=== PATIENT | male | born 1940 | race Caucasian/White ===

== ENCOUNTER → 2019-01-24 | Outpatient (CLI) | payer MEDICARE, OTHER ==
--- NOTE | 2019-01-24 14:31 | Diagnostic Imaging Report ---
PROCEDURE: CT head without contrast. TECHNIQUE: Multiple contiguous axial images were obtained through the brain without the use of intravenous contrast. Auto Exposure Controls were utilized during the CT exam to meet ALARA standards for radiation dose reduction. INDICATION: Right hand tremors. COMPARISON: No prior CT head studies are available for comparison. FINDINGS: The ventricles and sulci are within normal limits. No sulcal effacement or midline shift is seen. No acute intra-axial or extra-axial hemorrhage is detected. Cisterns are patent. Visualized paranasal sinuses are clear. IMPRESSION: No acute intracranial process is detected. Dictated by: Dictated on workstation # [id number]
== END ==
LOC: RAD 12:55
PROVIDERS: ATTEND Nurse Practitioner Family
DX: R25.1 Tremor, unspecified (principal)
CPT/HCPCS: 70450

== ENCOUNTER 2020-02-29 16:37 | Observation (INO) | payer MEDICARE, OTHER ==
[~2020-02-29] VITALS: Ht 177.8 cm; Wt 82.0 kg
--- OUTSIDE RECORDS SUMMARY | 2020-02-29 16:47 | XMS REPORT | CCD ---
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 Name Role Phone PP Unavailable CCM Unavailable Summary Purpose Interface Exchange Insurance Providers Payer name Policy type / Coverage type Covered libertarian ID Effective Begin Date Effective End Date WPS Medicare Part B Commercial Insurance [id number] Unknown FOR LIFE WPS Commercial Insurance [id number] Unknown Family history Mother Diagnosis Age At Onset Cancer Unknown Father Diagnosis Age At Onset Cancer Unknown Brother Diagnosis Age At Onset Cancer Unknown Social History Social History Element Codes Description Effective Dates Marital status Unknown M arried carson 04/21/2018 Number of children Unknown 4 04/21/2018 Employment Unknown 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 04/21/[address]: 115162 Currently drinks alcohol 04/21/2018 Allergies, Adverse Reactions, Alerts Substance Reaction Codes Entered Date Inactivated Date Status SULFA(SULFONAMIDE AN TIBIOTICS) Unknown 04/21/2018 No Inactive Date Active Past Medical History Illness Codes Condition Status Onset Date Resolved Date Low back pain ICD-9: 724.2 ICD-10: M54.5 Active 04/03/2019 Unknown Mixed hyperlipidemia ICD-9: 272.2 ICD-10: E78.2 Active 04/21/2018 Unknown Essential (primary) hypertension ICD-9: 401.1 ICD-10: I10 Active 04/21/2018 Unknown Other abnormal invol untary movements ICD-9: 781.0 ICD-10: R25.8 Active 01/01/2019 Unknown Other specified form s of tremor ICD-9: 781.0 ICD-10: G25.2 Active 01/01/2019 Unknown Other hypotension ICD-9: 458.8 ICD-10: I95.89 Active 04/21/2018 Unknown Problems Condition Codes Effectiv e Dates Condition Status Low back pain ICD-9: 724.2 ICD-10: M54.5 04/03/2019 Active Mixed hyperlipidemia ICD-9: 272.2 ICD-10: E78.2 04/21/2018 Active Essential (primary) hypertension ICD-9: 401.1 ICD-10: I10 04/21/2018 Active Other abnormal invol untary movements ICD-9: 781.0 ICD-10: R25.8 01/01/2019 Active Other specified form s of tremor ICD-9: 781.0 ICD-10: G25.2 01/01/2019 Active Other hypotension ICD-9: 458.8 ICD-10: I95.89 04/21/2018 Active Medications Medication Codes Instruc tions Start Date Stop Date Sta tus Fill Instructions Lipitor 20 mg tablet RxNorm: 083610 1 Tablet(s) PO daily 04/03/2019 03/27/2020 Active Zyrtec 10 mg tablet RxNorm: 9274192 1 Tablet(s) PO daily 01/01/2019 09/27/2019 Active aspirin 81 mg tablet RxNorm: 030660 1 Tablet(s) PO daily No Start Date Active Co Q-10 100 mg capsule RxNorm: 392997 1 Capsule(s) PO daily No Start Date Active Lipitor 10 mg tablet RxNorm: 962353 1/2 Tablet(s) PO daily No Start Date 03/20/2019 Inactive Toprol XL 25 mg tabl et,extended release RxNorm: 636295 1 Tablet(s) PO daily No Start Date 12/31/2018 Inactive Medication Administered No Medication Administered data Immunizations No Immunization data Assessments Condition Codes Effectiv e Dates Mixed hyperlipidemia ICD-10: E78.2 ICD-9: 272.2 04/03/2019 Low back pain ICD-10: M54.5 ICD-9: 724.2 04/03/2019 Other specified forms of tremor ICD- 10: G25.2 ICD-9: 781.0 01/22/2019 Essential (primary) hypertension ICD -10: I10 ICD-9: 401.1 01/22/2019 Other abnormal involuntary movements ICD-10: R25.8 ICD-9: 781.0 01/01/2019 Other hypotension ICD-10: I95.89 ICD-9: 458.8 04/21/2018 Reason For Visit Reason For Visit Effective Dates Notes back pain 04/03/2019 dyskinesia or tremor 01/22/2019 dyskinesia or tremor 01/01/2019 hypertension 04/21/2018 Results Observation Observation Code Item Item Code Result Date Cbc With Differential Ord2 WBC 9.20 K/ul 01/01/2019 Cbc With Differential Ord2 RBC 4.68 M/ul 01/01/2019 Cbc With Differential Ord2 HGB 14.8 g/dl 01/01/2019 Cbc With Differential Ord2 HCT 45.0 % 01/01/2019 Cbc With Differential Ord2 Neut% 68.7 % 01/01/2019 Cbc With Differential Ord2 MCV 96.2 fl 01/01/2019 Cbc With Differential Ord2 Lymph% 16.8 % 01/01/2019 Cbc With Differential Ord2 MCH 31.6 pg 01/01/2019 Cbc With Differential Ord2 [place]% 10.9 % 01/01/2019 Cbc With Differential Ord2 MCHC 32.9 pg 01/01/2019 Cbc With Differential Ord2 Eos% 3.3 % 01/01/2019 Cbc With Differential Ord2 PLT 221 K/ul 01/01/2019 Cbc With Differential Ord2 Baso% 0.3 % 01/01/2019 Cbc With Differential Ord2 RDW 14.0 % 01/01/2019 Cbc With Differential Ord2 Neut ABS# 6.32 K/ul 01/01/2019 Cbc With Differential Ord2 Lymph ABS# 1.55 K/ul 01/01/2019 Cbc With Differential Ord2 [place] ABS# 1.0 K/ul 01/01/2019 Cbc With Differential Ord2 Eos ABS# 0.3 K/ul 01/01/2019 Cbc With Differential Ord2 Baso ABS# 0.0 K/ul 01/01/2019 Comp Metabolic Pox492 NA 144 mEq/L 01/01/2019 Comp Metabolic Ivc432 K 4.6 mEq/L 01/01/2019 Comp Metabolic Gzn221 CL 103 mEq/L 01/01/2019 Comp Metabolic Gqk702 CO2 36.0 mEq/L 01/01/2019 Comp Metabolic Drv475 AN ION GAP 10 01/01/2019 Comp Metabolic Uyb970 GL UCOSE 83 mg/dL 01/01/2019 Comp Metabolic Dvv782 Cr eat 1.1 mg/dL 01/01/2019 Comp Metabolic Uxl826 eG FR 71 ml/min/1.73m2 01/01 Comp Metabolic Gwp020 BUN 25 mg/dL 01/01/2019 Comp Metabolic Ddw277 B/ C Ratio 23.4 Ratio 01/01/2019 Comp Metabolic Uhh242 CA LCIUM 9.2 mg/dL 01/01/2019 Comp Metabolic Iff697 AL K PHOS 54 U/L 01/01/2019 Comp Metabolic Uou099 T(SGOT) 18 U/L 01/01/2019 Comp Metabolic Rws766 AL T(SGPT) 16 U/L 01/01/2019 Comp Metabolic Adp714 BI LI T 0.5 mg/dL 01/01/2019 Comp Metabolic Bau929 AL BUMIN 3.9 g/dL 01/01/2019 Comp Metabolic Ozf437 TP RO 5.7 g/dL 01/01/2019 Comp Metabolic Mji060 GL OB 1.8 g/dL 01/01/2019 Comp Metabolic Zjn704 A/ G Ratio 2.1 Ratio 01/01/2019 Comp Metabolic Sho422 Os mo 290 mOsmo 01/01/2019 Phosphorus Ord71 PHOS 4.1 mg/dL 01/01/2019 Tsh Ord6 TSH (3rd IS) 0.81 uIU/mL 01/01/2019 Magnesium Ord90 Mag 2.2 mg/dL 01/01/2019 Lipid Ord30 CHOL 131 mg/dL 04/21/2018 Lipid Ord30 HDL 52.0 mg/dl 04/21/2018 Lipid Ord30 TRIG 68 mg/dL 04/21/2018 Lipid Ord30 LDL 65 mg/dL 04/21/2018 Lipid Ord30 C/HDL 2.5 Ratio 04/21/2018 Comp Metabolic Ylv421 NA 140 mEq/L 04/21/2018 Comp Metabolic Tzu211 K 4.6 mEq/L 04/21/2018 Comp Metabolic Fzs033 CL 103 mEq/L 04/21/2018 Comp Metabolic Xqn789 CO2 32.0 mEq/L 04/21/2018 Comp Metabolic Mtd030 AN ION GAP 10 04/21/2018 Comp Metabolic Lgz371 GL UCOSE 92 mg/dL 04/21/2018 Comp Metabolic Cnw901 Cr eat 1.0 mg/dL 04/21/2018 Comp Metabolic Zzr598 eG FR 77 ml/min/1.73m2 04/21 Comp Metabolic Vii310 BUN 21 mg/dL 04/21/2018 Comp Metabolic Tyu532 B/ C Ratio 21.0 Ratio 04/21/2018 Comp Metabolic Svk775 CA LCIUM 9.1 mg/dL 04/21/2018 Comp Metabolic Sfg049 AL K PHOS 48 U/L 04/21/2018 Comp Metabolic Gmz388 T(SGOT) 22 U/L 04/21/2018 Comp Metabolic Vug573 AL T(SGPT) 17 U/L 04/21/2018 Comp Metabolic Pqg777 BI LI T 1.1 mg/dL 04/21/2018 Comp Metabolic Myo451 AL BUMIN 4.1 g/dL 04/21/2018 Comp Metabolic Vzy745 TP RO 5.9 g/dL 04/21/2018 Comp Metabolic Xfy595 GL OB 1.8 g/dL 04/21/2018 Comp Metabolic Bgv914 A/ G Ratio 2.3 Ratio 04/21/2018 Comp Metabolic Usy999 Os mo 282 mOsmo 04/21/2018 Total Psa Ord10 PSA 1.74 ng/mL 04/21/2018 Cbc With Differential Ord2 WBC 6.67 K/ul 04/21/2018 Cbc With Differential Ord2 RBC 4.47 M/ul 04/21/2018 Cbc With Differential Ord2 HGB 14.1 g/dl 04/21/2018 Cbc With Differential Ord2 HCT 42.4 % 04/21/2018 Cbc With Differential Ord2 Neut% 63.2 % 04/21/2018 Cbc With Differential Ord2 MCV 94.9 fl 04/21/2018 Cbc With Differential Ord2 Lymph% 21.3 % 04/21/2018 Cbc With Differential Ord2 MCH 31.5 pg 04/21/2018 Cbc With Differential Ord2 [place]% 11.4 % 04/21/2018 Cbc With Differential Ord2 MCHC 33.3 pg 04/21/2018 Cbc With Differential Ord2 Eos% 3.7 % 04/21/2018 Cbc With Differential Ord2 PLT 210 K/ul 04/21/2018 Cbc With Differential Ord2 Baso% 0.4 % 04/21/2018 Cbc With Differential Ord2 RDW 13.5 % 04/21/2018 Cbc With Differential Ord2 Neut ABS# 4.21 K/ul 04/21/2018 Cbc With Differential Ord2 Lymph ABS# 1.42 K/ul 04/21/2018 Cbc With Differential Ord2 [place] ABS# 0.8 K/ul 04/21/2018 Cbc With Differential Ord2 Eos ABS# 0.3 K/ul 04/21/2018 Cbc With Differential Ord2 Baso ABS# 0.0 K/ul 04/21/2018 Tsh Ord6 TSH (3rd IS) 0.67 uIU/mL 04/21/2018 Review of Systems System Result Effective Dates Constitutional No recent illness 04/03/2019 Constitutional No chills 04/03/2019 Constitutional No fever 04/03/2019 Eyes No eye erythema Ears/Nose/Throat/Neck No nasal discharge 04/03/2019 Cardiovascular No chest pain/pressure 04/03/2019 Cardiovascular No dyspnea 04/03/2019 Respiratory No cough Respiratory No dyspnea 0 04/03/2019 Neurologic No alteration of consciousness 04/03/2019 Neurologic No mental status change 04/03/2019 Musculoskeletal back pain 04/03/2019 Constitutional No recent illness 01/22/2019 Constitutional No anorexia 01/22/2019 Constitutional No night sweats 01/22/2019 Constitutional No chills 01/22/2019 Constitutional No diaphoresis 01/22/2019 Constitutional No fatigue 01/22/2019 Constitutional No fever 01/22/2019 Constitutional No insomnia 01/22/2019 Constitutional No malaise 01/22/2019 Constitutional No weight loss 01/22/2019 Constitutional No weight gain 01/22/2019 Eyes No eye discharge Eyes No eye erythema Eyes eye tearing 019 Ears/Nose/Throat/Neck No dizziness 01/22/2019 Ears/Nose/Throat/Neck No headache 01/22/2019 Ears/Nose/Throat/Neck nasal allergies 01/22/2019 Cardiovascular No chest pain/pressure 01/22/2019 Cardiovascular No dyspnea 01/22/2019 Cardiovascular No edema 01/22/2019 Respiratory No productive sputum 01/22/2019 Respiratory No cough Gastrointestinal No abdominal pain 01/22/2019 Gastrointestinal No constipation 01/22/2019 Gastrointestinal No diarrhea 01/22/2019 Genitourinary/Nephrology No dysuria 01/22/2019 Musculoskeletal back pain 01/22/2019 Musculoskeletal No neck pain 01/22/2019 Dermatologic No rash Dermatologic No sores Neurologic No alteration of consciousness 01/22/2019 Neurologic dyskinesia or tremor 01/22/2019 Psychiatric No anxiety 0 01/22/2019 Endocrine No dry or coarse skin 01/22/2019 Hematologic/Lymphatic No abnormal ec chymoses 01/22/2019 Musculoskeletal back pain 01/01/2019 Musculoskeletal No neck pain 01/01/2019 Constitutional No anorexia 01/01/2019 Constitutional No recent illness 01/01/2019 Constitutional No night sweats 01/01/2019 Constitutional No chills 01/01/2019 Constitutional No diaphoresis 01/01/2019 Constitutional No fatigue 01/01/2019 Constitutional No fever 01/01/2019 Constitutional No insomnia 01/01/2019 Constitutional No malaise 01/01/2019 Constitutional No weight loss 01/01/2019 Constitutional No weight gain 01/01/2019 Eyes No eye erythema Eyes No eye discharge Ears/Nose/Throat/Neck No dizziness 01/01/2019 Ears/Nose/Throat/Neck No headache 01/01/2019 Eyes eye tearing 019 Cardiovascular No chest pain/pressure 01/01/2019 Cardiovascular No dyspnea 01/01/2019 Cardiovascular No edema 01/01/2019 Respiratory No cough Respiratory No productive sputum 01/01/2019 Ears/Nose/Throat/Neck nasal allergies 01/01/2019 Gastrointestinal No abdominal pain 01/01/2019 Gastrointestinal No constipation 01/01/2019 Gastrointestinal No diarrhea 01/01/2019 Genitourinary/Nephrology No dysuria 01/01/2019 Dermatologic No rash Dermatologic No sores Neurologic No alteration of consciousness 01/01/2019 Neurologic dyskinesia or tremor 01/01/2019 Psychiatric No anxiety 0 01/01/2019 Endocrine No dry or coarse skin 01/01/2019 Hematologic/Lymphatic No abnormal ec chymoses 01/01/2019 Constitutional No recent illness 04/21/2018 Constitutional No chills 04/21/2018 Constitutional No diaphoresis 04/21/2018 Constitutional fatigue 0 04/21/2018 Constitutional No fever 04/21/2018 Eyes No eye erythema Ears/Nose/Throat/Neck No nasal allergies 04/21/2018 Ears/Nose/Throat/Neck No nasal discharge 04/21/2018 Cardiovascular No chest pain/pressure 04/21/2018 Cardiovascular No dyspnea 04/21/2018 Cardiovascular fatigue 0 04/21/2018 Cardiovascular near-syncope/dizziness 04/21/2018 Cardiovascular No palpitations 04/21/2018 Respiratory No cough Respiratory No chest congestion 04/21/2018 Gastrointestinal No abdominal pain 04/21/2018 Gastrointestinal No constipation 04/21/2018 Gastrointestinal No diarrhea 04/21/2018 Gastrointestinal No vomiting 04/21/2018 Gastrointestinal No nausea 04/21/2018 Gastrointestinal No melena 04/21/2018 Gastrointestinal No hematochezia 04/21/2018 Genitourinary/Nephrology No dysuria 04/21/2018 Musculoskeletal No joint complaint 04/21/2018 Dermatologic No rash Neurologic No alteration of consciousness 04/21/2018 Neurologic No mental status change 04/21/2018 Physical Exam Exam Name System Name It em Name Status Result Effective Dates Notes Full Exam - Orthopedics Constitutional general appearance Overall: well nourished 04/03/2019 None Full Exam - Orthopedics Constitutional general appearance Overall: well developed 04/03/2019 None Full Exam - Orthopedics Constitutional general appearance Overall: in no acute distress 04/03/2019 None Full Exam - Orthopedics Eyes conjunctiva/eyelids Overall: conjunctiva clear 04/03/2019 None Full Exam - Orthopedics Eyes conjunctiva/eyelids Overall: eyelids normal 04/03/2019 None Full Exam - Orthopedics Ears/Nose/Throat lips/teeth/gingiva Overall: benign lips 04/03/2019 None Full Exam - Orthopedics Ears/Nose/Throat oral cavity/pharynx/larynx Overall: oral mucosa clear 04/03/2019 None Full Exam - Orthopedics Respiratory respiratory effort/rhythm Overall: no retractions 04/03/2019 None Full Exam - Orthopedics Respiratory respiratory effort/rhythm Overall: normal rate 04/03/2019 None Full Exam - Orthopedics Psychiatric orientation/consciousness Overall: oriented to person, place and time 04/03/2019 None Full Exam - Orthopedics Psychiatric mood and affect Overall: normal mood and affect 04/03/2019 None Full Exam - Orthopedics Psychiatric appearance Overall: well-groomed, good eye contact 04/03/2019 None Full Exam - Orthopedics MS: head/neck insp & palp - H/N Overall: head atraumatic 04/03/2019 None Full Exam - Orthopedics Cardiovascular examination of vasculature Overall: no clubbing, cyanosis, edema 04/03/2019 None Full Exam - General 1994 Constitutional general appearance Overall: well developed 01/22/2019 None Full Exam - General 1994 Constitutional general appearance Overall: in no acute distress 01/22/2019 None Full Exam - General 1994 Constitutional general appearance Overall: well nourished 01/22/2019 None Full Exam - General 1994 Eyes conjunctiva/eyelids Overall: conjunctiva clear 01/22/2019 None Full Exam - General 1994 Eyes conjunctiva/eyelids Overall: cornea clear 01/22/2019 None Full Exam - General 1994 Eyes conjunctiva/eyelids Overall: eyelids normal 01/22/2019 None Full Exam - General 1994 Eyes pupils and irises Overall: pupils equal, round, reactive to light and accomodation 01/22/2019 None Full Exam - General 1994 Ears/Nose/Throat otoscopic exam Overall: external auditory canals clear 01/22/2019 None Full Exam - General 1994 Ears/Nose/Throat otoscopic exam Tympanic 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 chronic Full Exam - General 1994 Ears/Nose/Throat otoscopic exam Tympanic membrane: tympanosclerosis 01/22/2019 None Full Exam - General 1994 Ears/Nose/Throat lips/teeth/gingiva Overall: benign lips 01/22/2019 None Full Exam - General 1994 Ears/Nose/Throat oral cavity/pharynx/larynx Overall: oral mucosa clear 01/22/2019 None Full Exam - General 1994 Ears/Nose/Throat oral cavity/pharynx/larynx Overall: oropharyngeal mucosa clear 01/22/2019 None Full Exam - General 1994 Respiratory auscultation Overall: breath sounds clear bilaterally 01/22/2019 None Full Exam - General 1994 Respiratory respiratory effort/rhythm Overall: no retractions 01/22/2019 None Full Exam - General 1994 Respiratory respiratory effort/rhythm Overall: normal rate 01/22/2019 None Full Exam - General 1994 Cardiovascular auscultation of heart Rate: regular rate 01/22/2019 None Full Exam - General 1994 Cardiovascular auscultation of heart Rhythm: regular rhythm 01/22/2019 None Full Exam - General 1994 Abdomen abdominal exam Overall: no tenderness 01/22/2019 None Full Exam - General 1994 Abdomen abdominal exam Overall: normal bowel sounds 01/22/2019 None Full Exam - General 1994 Musculoskeletal gait and station Overall: normal gait 01/22/2019 None Full Exam - General 1994 Musculoskeletal gait and station Overall: normal station 01/22/2019 None Full Exam - General 1994 Musculoskeletal head and neck Overall: head atraumatic 01/22/2019 None Full Exam - General 1994 Neurologic coordination Tremors: resting 01/22/2019 right arm Full Exam - General 1994 Neurologic cranial nerves Overall: crainial nerves 2 - 12 grossly intact 01/22/2019 None Full Exam - General 1994 Psychiatric orientation/consciousness Overall: oriented to person, place and time 01/22/2019 None Full Exam - General 1994 Psychiatric mood and affect Overall: normal mood and affect 01/22/2019 None Full Exam - General 1994 Psychiatric appearance Overall: well-groomed, good eye contact 01/22/2019 None Full Exam - General 1994 Constitutional general appearance Overall: well developed 01/01/2019 None Full Exam - General 1994 Constitutional general appearance Overall: in no acute distress 01/01/2019 None Full Exam - General 1994 Constitutional general appearance Overall: well nourished 01/01/2019 None Full Exam - General 1994 Eyes conjunctiva/eyelids Overall: conjunctiva clear 01/01/2019 None Full Exam - General 1994 Eyes conjunctiva/eyelids Overall: cornea clear 01/01/2019 None Full Exam - General 1994 Eyes conjunctiva/eyelids Overall: eyelids normal 01/01/2019 None Full Exam - General 1994 Eyes pupils and irises Overall: pupils equal, round, reactive to light and accomodation 01/01/2019 None Full Exam - General 1994 Ears/Nose/Throat lips/teeth/gingiva Overall: benign lips 01/01/2019 None Full Exam - General 1994 Ears/Nose/Throat oral cavity/pharynx/larynx Overall: oral mucosa clear 01/01/2019 None Full Exam - General 1994 Ears/Nose/Throat oral cavity/pharynx/larynx Overall: oropharyngeal mucosa clear 01/01/2019 None Full Exam - General 1994 Respiratory auscultation Overall: breath sounds clear bilaterally 01/01/2019 None Full Exam - General 1994 Respiratory respiratory effort/rhythm Overall: no retractions 01/01/2019 None Full Exam - General 1994 Respiratory respiratory effort/rhythm Overall: normal rate 01/01/2019 None Full Exam - General 1994 Cardiovascular auscultation of heart Rate: regular rate 01/01/2019 None Full Exam - General 1994 Cardiovascular auscultation of heart Rhythm: regular rhythm 01/01/2019 None Full Exam - General 1994 Abdomen abdominal exam Overall: no tenderness 01/01/2019 None Full Exam - General 1994 Abdomen abdominal exam Overall: normal bowel sounds 01/01/2019 None Full Exam - General 1994 Musculoskeletal gait and station Overall: normal gait 01/01/2019 None Full Exam - General 1994 Musculoskeletal gait and station Overall: normal station 01/01/2019 None Full Exam - General 1994 Musculoskeletal head and neck Overall: head atraumatic 01/01/2019 None Full Exam - General 1994 Neurologic cranial nerves Overall: crainial nerves 2 - 12 grossly intact 01/01/2019 None Full Exam - General 1994 Psychiatric orientation/consciousness Overall: oriented to person, place and time 01/01/2019 None Full Exam - General 1994 Psychiatric mood and affect Overall: normal mood and affect 01/01/2019 None Full Exam - General 1994 Psychiatric appearance Overall: well-groomed, good eye contact 01/01/2019 None Full Exam - General 1994 Ears/Nose/Throat otoscopic exam Tympanic membrane: tympanosclerosis 01/01/2019 None Full Exam - General 1995 Ears/Nose/Throat otoscopic exam 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 Full Exam - General 1994 Ears/Nose/Throat otoscopic exam Overall: external auditory canals clear 01/01/2019 None Full Exam - General 1994 Neurologic coordination Tremors: resting 01/01/2019 right arm Full Exam - General 1994 Constitutional general appearance Overall: well developed 04/21/2018 None Full Exam - General 1994 Constitutional general appearance Overall: in no acute distress 04/21/2018 None Full Exam - General 1994 Constitutional general appearance Overall: well nourished 04/21/2018 None Full Exam - General 1994 Eyes conjunctiva/eyelids Overall: conjunctiva clear 04/21/2018 None Full Exam - General 1994 Eyes conjunctiva/eyelids Overall: cornea clear 04/21/2018 None Full Exam - General 1994 Eyes conjunctiva/eyelids Overall: eyelids normal 04/21/2018 None Full Exam - General 1994 Eyes pupils and irises Overall: pupils equal, round, reactive to light and accomodation 04/21/2018 None Full Exam - General 1994 Ears/Nose/Throat otoscopic exam Overall: tympanic membranes clear 04/21/2018 None Full Exam - General 1994 Ears/Nose/Throat otoscopic exam External auditory canal: partial cerumen occlusion 04/21/2018 None Full Exam - General 1994 Ears/Nose/Throat lips/teeth/gingiva Overall: benign lips 04/21/2018 None Full Exam - General 1994 Ears/Nose/Throat oral cavity/pharynx/larynx Overall: oral mucosa clear 04/21/2018 None Full Exam - General 1994 Ears/Nose/Throat oral cavity/pharynx/larynx Overall: oropharyngeal mucosa clear 04/21/2018 None Full Exam - General 1994 Respiratory auscultation Overall: breath sounds clear bilaterally 04/21/2018 None Full Exam - General 1994 Respiratory respiratory effort/rhythm Overall: no retractions 04/21/2018 None Full Exam - General 1994 Respiratory respiratory effort/rhythm Overall: normal rate 04/21/2018 None Full Exam - General 1994 Cardiovascular auscultation of heart Rate: regular rate 04/21/2018 None Full Exam - General 1994 Cardiovascular auscultation of heart Rhythm: regular rhythm 04/21/2018 None Full Exam - General 1994 Abdomen abdominal exam Overall: normal bowel sounds 04/21/2018 None Full Exam - General 1994 Abdomen abdominal exam Overall: no tenderness 04/21/2018 None Full Exam - General 1994 Musculoskeletal head and neck Overall: head atraumatic 04/21/2018 None Full Exam - General 1994 Musculoskeletal gait and station Overall: normal station 04/21/2018 None Full Exam - General 1994 Musculoskeletal gait and station Overall: normal gait 04/21/2018 None Full Exam - General 1994 Neurologic cranial nerves Overall: crainial nerves 2 - 12 grossly intact 04/21/2018 None Full Exam - General 1994 Psychiatric orientation/consciousness Overall: oriented to person, place and time 04/21/2018 None Full Exam - General 1994 Psychiatric mood and affect Overall: normal mood and affect 04/21/2018 None Full Exam - General 1994 Psychiatric appearance Overall: well-groomed, good eye contact 04/21/2018 None Procedures No Procedures data Vital Signs Date Vital 04/03/2019 Blood Pressure 1: 122/70 Code: 8480-6 BMI: 25.5 Code: 45265-6 Heart Rate 1: 74 bpm Height: 5'10" SpO2: 98% Weight: 178 lbs 01/22/2019 Blood Pressure 1: 124/68 Code: 8480-6 Heart Rate 1: 65 bpm Height: 5'10" SpO2: 96% 01/01/2019 Blood Pressure 1: 122/70 Code: 8480-6 BMI: 25.4 Code: 45439-1 Heart Rate 1: 72 bpm Height: 5'10" SpO2: 97% Weight: 177 lbs 04/21/2018 Blood Pressure 1: 124/66 Code: 8480-6 BMI: 24.7 Code: 75179-9 Heart Rate 1: 64 bpm Height: 5'10" SpO2: 98% Weight: 172 lbs Functional Status No Functional Status data History of Present Illness Symptom Name Status Resu lt Effective Date Notes Quality chronic 04/03/2019 None Onset and Resolution o ngoing 04/03/2019 None Limitation on Activities moderately limits activities 04/03/2019 None Pertinent Findings Den ies fever 04/03/2019 None Location in the finger s of the right hand 01/22/2019 None Quality acute 01/22/2019 None Onset and Resolution D enies ongoing 01/22/2019 None Limitation on Activities does not limit activities 01/22/2019 None Frequency of Episodes Denies unchanged 01/22/2019 None Triggers Denies no kno wn associated factors 01/22/2019 None Pertinent Findings Den ies fever 01/22/2019 None Onset of Symptom 6 wee ks ago 01/22/2019 None Location in the finger s of the right hand 01/01/2019 None Quality acute 01/01/2019 None Onset and Resolution D enies ongoing 01/01/2019 None Onset of Symptom 3 wee ks ago 01/01/2019 None Limitation on Activities does not limit activities 01/01/2019 None Frequency of Episodes Denies unchanged 01/01/2019 None Triggers Denies no kno wn associated factors 01/01/2019 None Pertinent Findings Den ies fever 01/01/2019 None hypertension Quality con stant 04/21/2018 None hypertension Onset and Resolution ongoing 04/21/2018 None hypertension Onset of Symptom during adulthood 04/21/2018 None Advance Directives No Advance Directive data Encounters Encounter Performer Loca tion Codes Date EST. PATIENT, LEVEL III Diagnosis: Low back pain[ICD10: M54.5] Diagnosis: Mixed hyperlipidemia[ICD10: E78.2] Jania Chiu MD, [facility] CPT-4: 11602 04/03/2019 07907 [id number] EST. P ATIENT, LEVEL III Diagnosis: Essential (primary) hypertension[ICD10: I10] Diagnosis: Other specified forms of tremor[ICD10: G25.2] Maria L Chiu MD, [facility] CPT-4: 07334 01/22/2019 [id number] EST. P ATIENT, LEVEL IV Diagnosis: Essential (primary) hypertension[ICD10: I10] Diagnosis: Other specified forms of tremor[ICD10: G25.2] Diagnosis: Other abnormal involuntary movements[ICD10: R25.8] Courtney Chiu MD, [facility] CPT-4: 19677 01/01/2019 OFFICE VISIT, NEW - LEVEL 3 Diagnosis: Other hypotension[ICD10: I95.89] Diagnosis: Mixed hyperlipidemia[ICD10: E78.2] [facility] CPT-4: 07980 04/21/2018 Plan of Care Planned Activity Notes C odes Status Date Visit Plan: Chronic Back pain - the patient was counseled to always first attempt to use modalities other than pain medication for alleviation of the muscle spasms and pain. The patient was also encouraged to co ntinue with back exercises as previously directed. Pt is to use pain medication as directed. If pain medications are used inappropriately or early refills are requested, the patient understands that is a breech of trust/contract and could result in the patient's termination from this medical practice. 04/03/2019 Patient Education: Patient Medication Summary Completed 04/03/2019 Patient Education: Back Pain Completed 04/03/2019 Patient Education: Cholesterol Management Completed 04/03/2019 Care Plan: Comp Metabolic Pending 04/03/2019 Care Plan: Cbc With Differential Pending 04/03/2019 Care Plan: Tsh Pending 04/03/2019 Care Plan: Lipid Pending 04/03/2019 Care Plan: Referral Order SNOMED-CT : [id number] Pending 04/03/2019 Visit Plan: Hypertension - well con trolled - continue with current medications, continue with no added salt diet. Pt has been encouraged to exercise daily. The pt has been advised to call the office if there are any acute concerns about change in blood pressure readings at home. Tremor -sudden onset 6 weeks ago -will schedule CT head for further evaluation. 01/22/2019 Appointment: Maria L Leija [facility]Ptel[phone] ([facility] min[facility] 01/22/2019 Patient Education: Patient Medication Summary Completed 01/22/2019 Visit Plan: Hypertension - well con trolled - continue with current medications, continue with no added salt diet. Pt has been encouraged to exercise daily. The pt has been advised to call the office if there are any acute concerns about change in blood pressure readings at home. Tremor -right arm-new onset -no cogwheeling or other parkinsonian symptoms -hold atorvastatin -check labs including thyroid -follow up in 3 weeks 01/01/2019 Visit Plan: Hypertension - well con trolled - continue with current medications, continue with no added salt diet. Pt has been encouraged to exercise daily. The pt has been advised to call the office if there are any acute concerns about change in blood pressure readings at home. Tremor -right arm-new onset -no cogwheeling or other parkinsonian symptoms -hold atorvastatin -check labs including thyroid -follow up in 3 weeks ADDENDUM: Doctor's eval of the patient - I, Dr. Chiu, personally evaluated the patient with the nurse practitioner. I have reviewed the patient's chart, I have reviewed the patient's past medical history, problem list, medication list, and personal history. I agree with the documentation by the nurse practitioner in the HPI, physical exam, and the assessment and plan. 01/01/2019 Appointment: Maria L Leija WPtel: [phone] [phone] (30 min) Complex 01/01/2019 Patient Education: Patient Medication Summary Completed 01/01/2019 Visit Plan: Hypotension - pt is to stay off of his blood pressure medication and increase his fluid intake - pt is to monitor blood pressures and heart rates at home and notify clinic if symptoms do not improve, if they worsen, or with any changes, questions, or concerns. Hyperlipidemia - pt has been counseled about appropriate diet, exercise, and need for low fat food choices. I have discussed the need for the patient to take medications as prescribed. If the patient has negative side effects from the medication, they are to CALL the office and not abruptly discontinue the medication without discussion with a practitioner in the office. We will check labs in 3-6 months for follow up on the patient's chronic medical problem and to assure normal liver response to medications. 04/21/2018 Appointment: Jania Parish WPtel: [facility] [place] New Patient 04/21/2018 Patient Education: Patient Medication Summary Completed 04/21/2018 Referral: Delfina, [facility] WPtel: [address] [id number] [place] Referral Initiated Instructions Comment HOLD ATORVASTATIN (L IPITOR) CHECK LABS TODAY . Hypertension - well controlled - agry nue with current medications, continue with no added salt diet. Pt has been encouraged to exercise daily. The pt has been advised to call the office if there are any acute concerns about change in blood pressure readings at home. Tremor -right arm-new onset -no cogwheeling or other parkinsonian symptoms -hold atorvastatin -check labs including thyroid -follow up in 3 weeks . Hypertension - wel l controlled - continue with current medications, continue with no added salt diet. Pt has been encouraged to exercise daily. The pt has been advised to call the office if there are any acute concerns about change in blood pressure readings at home. Tremor -right arm-new onset -no cogwheeling or other parkinsonian symptoms -hold atorvastatin -check labs including thyroid -follow up in 3 weeks ADDENDUM: Doctor's eval of the patient - I, Dr. Chiu, personally evaluated the patient with the nurse practitioner. I have reviewed the patient's chart, I have reviewed the patient's past medical history, problem list, medication list, and personal history. I agree with the documentation by the nurse practitioner in the HPI, physical exam, and the assessment and plan. Fasting labs tomorro w morning will send lipitor 20mg daily to mail order pharmacy will refer to Dr. Arrieta for injections . Chronic Back pain - the patient was co unseled to always first attempt to use modalities other than pain medication for alleviation of the muscle spasms and pain. The patient was also encouraged to continue with back exercises as previously directed. Pt is to use pain medication as directed. If pain medications are used inappropriately or early refills are requested, the patient understands that is a breech of trust/contract and could result in the patient's termination from this medical practice. FAX NOTES TO KAI RODGERS WITH DR RIKI PETERSON P [phone] F [phone] CT HEAD -ANY DAY AND ANY TIME EXCEPT TUESDAY OR TUESDAY THIS WEEK CONTINUE TO MONITOR . Hypertension - well controlled - gary nue with current medications, continue with no added salt diet. Pt has been encouraged to exercise daily. The pt has been advised to call the office if there are any acute concerns about change in blood pressure readings at home. Tremor -sudden onset 6 weeks ago -will schedule CT head for further evaluation. . Hypotension - pt i s to stay off of his blood pressure medication and increase his fluid intake - pt is to monitor blood pressures and heart rates at home and notify clinic if symptoms do not improve, if they worsen, or with any changes, questions, or concerns. Hyperlipidemia - pt has been counseled about appropriate diet, exercise, and need for low fat food choices. I have discussed the need for the patient to take medications as prescribed. If the patient has negative side effects from the medication, they are to CALL the office and not abruptly discontinue the medication without discussion with a practitioner in the office. We will check labs in 3-6 months for follow up on the patient's chronic medical problem and to assure normal liver response to medications.
--- OUTSIDE RECORDS SUMMARY | 2020-02-29 16:47 | XMS REPORT | CCD ---
Author Author Benoit Parish Organization Courtney Chiu MD, [facility] Address [address] [place] [address] Phone Care Team Providers Care Reflexologist Name Role Phone PP Unavailable CCM Unavailable Summary Purpose Interface Exchange Insurance Providers Payer name Policy type / Coverage type Covered green party ID Effective Begin Date Effective End Date WPS Medicare Part B Commercial Insurance [id number] Unknown FOR LIFE WPS Commercial Insurance [id number] Unknown Family history Mother Diagnosis Age At Onset Cancer Unknown Father Diagnosis Age At Onset Cancer Unknown Brother Diagnosis Age At Onset Cancer Unknown Social History Social History Element Codes Description Effective Dates Marital status Unknown M arried carson 04/21/2018 Number of children Unknown 4 04/21/2018 Employment Unknown 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 04/21/[address]: 893548 Currently drinks alcohol 04/21/2018 Allergies, Adverse Reactions, [...] Fill Instructions Lipitor 20 mg tablet RxNorm: 187801 1 Tablet(s) PO daily 04/03/2019 03/27/2020 Active Zyrtec 10 mg tablet RxNorm: 5186379 1 Tablet(s) PO daily 01/01/2019 09/27/2019 Active aspirin 81 mg tablet RxNorm: 783888 1 Tablet(s) PO daily No Start Date Active Co Q-10 100 mg capsule RxNorm: 421558 1 Capsule(s) PO daily No Start Date Active Lipitor 10 mg tablet RxNorm: 164229 1/2 Tablet(s) PO daily No Start Date 03/20/2019 Inactive Toprol XL 25 mg tabl et,extended release RxNorm: 347779 1 Tablet(s) PO daily No Start Date [...] 31.6 pg 01/01/2019 Cbc With Differential Ord2 [place]% 10.9 % 01/01/2019 Cbc With Differential Ord2 [...] 1.55 K/ul 01/01/2019 Cbc With Differential Ord2 [place] ABS# 1.0 K/ul 01/01/2019 Cbc With Differential Ord2 Eos ABS# 0.3 K/ul 01/01/2019 Cbc With Differential Ord2 Baso ABS# 0.0 K/ul 01/01/2019 Comp Metabolic Fec969 NA 144 mEq/L 01/01/2019 Comp Metabolic Knr069 K 4.6 mEq/L 01/01/2019 Comp Metabolic Dce493 CL 103 mEq/L 01/01/2019 Comp Metabolic Xoe780 CO2 36.0 mEq/L 01/01/2019 Comp Metabolic Hxb711 AN ION GAP 10 01/01/2019 Comp Metabolic Fhw575 GL UCOSE 83 mg/dL 01/01/2019 Comp Metabolic Iwz695 Cr eat 1.1 mg/dL 01/01/2019 Comp Metabolic Hqa625 eG FR 71 ml/min/1.73m2 01/01 Comp Metabolic Usq164 BUN 25 mg/dL 01/01/2019 Comp Metabolic Qkf446 B/ C Ratio 23.4 Ratio 01/01/2019 Comp Metabolic Toh356 CA LCIUM 9.2 mg/dL 01/01/2019 Comp Metabolic Pof168 AL K PHOS 54 U/L 01/01/2019 Comp Metabolic Yqq263 T(SGOT) 18 U/L 01/01/2019 Comp Metabolic Vdr334 AL T(SGPT) 16 U/L 01/01/2019 Comp Metabolic Wwt503 BI LI T 0.5 mg/dL 01/01/2019 Comp Metabolic Aoi477 AL BUMIN 3.9 g/dL 01/01/2019 Comp Metabolic Wwk692 TP RO 5.7 g/dL 01/01/2019 Comp Metabolic Jdy757 GL OB 1.8 g/dL 01/01/2019 Comp Metabolic Cic884 A/ G Ratio 2.1 Ratio 01/01/2019 Comp Metabolic Ezn025 Os mo 290 mOsmo 01/01/2019 Phosphorus Ord71 PHOS 4.1 mg/dL 01/01/2019 Tsh Ord6 TSH (3rd IS) 0.81 uIU/mL 01/01/2019 Magnesium Ord90 Mag 2.2 mg/dL 01/01/2019 Lipid Ord30 CHOL 131 mg/dL 04/21/2018 Lipid Ord30 HDL 52.0 mg/dl 04/21/2018 Lipid Ord30 TRIG 68 mg/dL 04/21/2018 Lipid Ord30 LDL 65 mg/dL 04/21/2018 Lipid Ord30 C/HDL 2.5 Ratio 04/21/2018 Comp Metabolic Wmm667 NA 140 mEq/L 04/21/2018 Comp Metabolic Zyc792 K 4.6 mEq/L 04/21/2018 Comp Metabolic Moh727 CL 103 mEq/L 04/21/2018 Comp Metabolic Rdv446 CO2 32.0 mEq/L 04/21/2018 Comp Metabolic Gfr984 AN ION GAP 10 04/21/2018 Comp Metabolic Awv544 GL UCOSE 92 mg/dL 04/21/2018 Comp Metabolic Alv824 Cr eat 1.0 mg/dL 04/21/2018 Comp Metabolic Fqz440 eG FR 77 ml/min/1.73m2 04/21 Comp Metabolic Mae772 BUN 21 mg/dL 04/21/2018 Comp Metabolic Itb238 B/ C Ratio 21.0 Ratio 04/21/2018 Comp Metabolic Lgg094 CA LCIUM 9.1 mg/dL 04/21/2018 Comp Metabolic Fet004 AL K PHOS 48 U/L 04/21/2018 Comp Metabolic Gku258 T(SGOT) 22 U/L 04/21/2018 Comp Metabolic Lrq778 AL T(SGPT) 17 U/L 04/21/2018 Comp Metabolic Wat239 BI LI T 1.1 mg/dL 04/21/2018 Comp Metabolic Xzx752 AL BUMIN 4.1 g/dL 04/21/2018 Comp Metabolic Eai487 TP RO 5.9 g/dL 04/21/2018 Comp Metabolic Oak225 GL OB 1.8 g/dL 04/21/2018 Comp Metabolic Nxj936 A/ G Ratio 2.3 Ratio 04/21/2018 Comp Metabolic Ixx542 Os mo 282 mOsmo 04/21/2018 Total Psa [...] 31.5 pg 04/21/2018 Cbc With Differential Ord2 [place]% 11.4 % 04/21/2018 Cbc With Differential Ord2 [...] 1.42 K/ul 04/21/2018 Cbc With Differential Ord2 [place] ABS# 0.8 K/ul 04/21/2018 Cbc With Differential [...] 1: 122/70 Code: 8480-6 BMI: 25.5 Code: 68856-3 Heart Rate 1: 74 bpm Height: 5'10" SpO2: 98% Weight: 178 lbs 01/22/2019 Blood Pressure 1: 124/68 Code: 8480-6 Heart Rate 1: 65 bpm Height: 5'10" SpO2: 96% 01/01/2019 Blood Pressure 1: 122/70 Code: 8480-6 BMI: 25.4 Code: 40641-6 Heart Rate 1: 72 bpm Height: 5'10" SpO2: 97% Weight: 177 lbs 04/21/2018 Blood Pressure 1: 124/66 Code: 8480-6 BMI: 24.7 Code: 56540-4 Heart Rate 1: 64 bpm Height: 5'10" [...] Diagnosis: Mixed hyperlipidemia[ICD10: E78.2] Jania Chiu MD, [facility] CPT-4: 95012 04/03/2019 53317 52752 EST. P ATIENT, LEVEL III Diagnosis: Essential (primary) hypertension[ICD10: I10] Diagnosis: Other specified forms of tremor[ICD10: G25.2] Maria L Chiu MD, [facility] CPT-4: 44516 01/22/2019 [id number] 03418 EST. P ATIENT, LEVEL IV Diagnosis: Essential (primary) hypertension[ICD10: I10] Diagnosis: Other specified forms of tremor[ICD10: G25.2] Diagnosis: Other abnormal involuntary movements[ICD10: R25.8] Courtney Chiu MD, [facility] CPT-4: 65795 01/01/2019 OFFICE VISIT, NEW - LEVEL 3 Diagnosis: Other hypotension[ICD10: I95.89] Diagnosis: Mixed hyperlipidemia[ICD10: E78.2] [facility] CPT-4: 65852 04/21/2018 Plan of Care Planned Activity Notes [...] Pending 04/03/2019 Care Plan: Lipid Pending 04/03/2019 Visit Plan: Hypertension - well [...] evaluation. 01/22/2019 Appointment: Maria L Leija WPtel: [address] [place], [place] [phone] (30 min) [facility] 01/22/2019 Patient Education: Patient Medication Summary Completed [...] plan. 01/01/2019 Appointment: Maria L Leija WPtel: [phone] [phone] (30 min) Complex 01/01/2019 Patient Education: Patient [...] to medications. 04/21/2018 Appointment: Jania Parish [facility]Ptel: [phone] [place] Patient 04/21/2018 Patient Education: Patient Medication Summary Completed 04/21/2018 Instructions Comment HOLD ATORVASTATIN (L IPITOR) CHECK LABS TODAY . Hypertension - well controlled - gary [...] KAI RODGERS WITH DR RIKI PETERSON P [phone] F [phone] CT HEAD -ANY DAY AND ANY TIME [...]
--- OUTSIDE RECORDS SUMMARY | 2020-02-29 16:47 | XMS REPORT | CCD ---
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 Name Role Phone PP Unavailable CCM Unavailable Summary Purpose Interface Exchange Insurance Providers Payer name Policy type / Coverage type Covered constitution party ID Effective Begin Date Effective End Date WPS Medicare Part B Commercial Insurance [id number] Unknown FOR LIFE WPS Commercial Insurance [id number] Unknown Family history Mother Diagnosis Age At Onset Cancer Unknown Father Diagnosis Age At Onset Cancer Unknown Brother Diagnosis Age At Onset Cancer Unknown Social History Social History Element Codes Description Effective Dates Marital status Unknown M arried carson 04/21/2018 Number of children Unknown 4 04/21/2018 Employment Unknown 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 04/21/[address]: 644362 Currently drinks alcohol 04/21/2018 Allergies, Adverse Reactions, [...] Fill Instructions Lipitor 20 mg tablet RxNorm: 701359 1 Tablet(s) PO daily 04/03/2019 03/27/2020 Active Zyrtec 10 mg tablet RxNorm: 9147115 1 Tablet(s) PO daily 01/01/2019 09/27/2019 Active aspirin 81 mg tablet RxNorm: 672679 1 Tablet(s) PO daily No Start Date Active Co Q-10 100 mg capsule RxNorm: 491294 1 Capsule(s) PO daily No Start Date Active Lipitor 10 mg tablet RxNorm: 275466 1/2 Tablet(s) PO daily No Start Date 03/20/2019 Inactive Toprol XL 25 mg tabl et,extended release RxNorm: 651754 1 Tablet(s) PO daily No Start Date [...] 31.6 pg 01/01/2019 Cbc With Differential Ord2 [place]% 10.9 % 01/01/2019 Cbc With Differential Ord2 [...] 1.55 K/ul 01/01/2019 Cbc With Differential Ord2 [place] ABS# 1.0 K/ul 01/01/2019 Cbc With Differential Ord2 Eos ABS# 0.3 K/ul 01/01/2019 Cbc With Differential Ord2 Baso ABS# 0.0 K/ul 01/01/2019 Comp Metabolic Azt319 NA 144 mEq/L 01/01/2019 Comp Metabolic Gsd638 K 4.6 mEq/L 01/01/2019 Comp Metabolic Ubi038 CL 103 mEq/L 01/01/2019 Comp Metabolic Fak718 CO2 36.0 mEq/L 01/01/2019 Comp Metabolic Rmy998 AN ION GAP 10 01/01/2019 Comp Metabolic Tja023 GL UCOSE 83 mg/dL 01/01/2019 Comp Metabolic Slv575 Cr eat 1.1 mg/dL 01/01/2019 Comp Metabolic Ujx538 eG FR 71 ml/min/1.73m2 01/01 Comp Metabolic Inq647 BUN 25 mg/dL 01/01/2019 Comp Metabolic Zvl140 B/ C Ratio 23.4 Ratio 01/01/2019 Comp Metabolic Fpv807 CA LCIUM 9.2 mg/dL 01/01/2019 Comp Metabolic Xfv250 AL K PHOS 54 U/L 01/01/2019 Comp Metabolic Fjk864 T(SGOT) 18 U/L 01/01/2019 Comp Metabolic Ewt449 AL T(SGPT) 16 U/L 01/01/2019 Comp Metabolic Bkh195 BI LI T 0.5 mg/dL 01/01/2019 Comp Metabolic Ovh898 AL BUMIN 3.9 g/dL 01/01/2019 Comp Metabolic Bwe273 TP RO 5.7 g/dL 01/01/2019 Comp Metabolic Qoe750 GL OB 1.8 g/dL 01/01/2019 Comp Metabolic Xgf219 A/ G Ratio 2.1 Ratio 01/01/2019 Comp Metabolic Vkz435 Os mo 290 mOsmo 01/01/2019 Phosphorus Ord71 PHOS 4.1 mg/dL 01/01/2019 Tsh Ord6 TSH (3rd IS) 0.81 uIU/mL 01/01/2019 Magnesium Ord90 Mag 2.2 mg/dL 01/01/2019 Lipid Ord30 CHOL 131 mg/dL 04/21/2018 Lipid Ord30 HDL 52.0 mg/dl 04/21/2018 Lipid Ord30 TRIG 68 mg/dL 04/21/2018 Lipid Ord30 LDL 65 mg/dL 04/21/2018 Lipid Ord30 C/HDL 2.5 Ratio 04/21/2018 Comp Metabolic Qzm264 NA 140 mEq/L 04/21/2018 Comp Metabolic Bec922 K 4.6 mEq/L 04/21/2018 Comp Metabolic Kgy755 CL 103 mEq/L 04/21/2018 Comp Metabolic Nir657 CO2 32.0 mEq/L 04/21/2018 Comp Metabolic Bxa293 AN ION GAP 10 04/21/2018 Comp Metabolic Tot688 GL UCOSE 92 mg/dL 04/21/2018 Comp Metabolic Ckz343 Cr eat 1.0 mg/dL 04/21/2018 Comp Metabolic Epa686 eG FR 77 ml/min/1.73m2 04/21 Comp Metabolic Axt350 BUN 21 mg/dL 04/21/2018 Comp Metabolic Zsv069 B/ C Ratio 21.0 Ratio 04/21/2018 Comp Metabolic Uvj836 CA LCIUM 9.1 mg/dL 04/21/2018 Comp Metabolic Zzf277 AL K PHOS 48 U/L 04/21/2018 Comp Metabolic Tcv813 T(SGOT) 22 U/L 04/21/2018 Comp Metabolic Xsz716 AL T(SGPT) 17 U/L 04/21/2018 Comp Metabolic Xjp362 BI LI T 1.1 mg/dL 04/21/2018 Comp Metabolic Vnr078 AL BUMIN 4.1 g/dL 04/21/2018 Comp Metabolic Wfk515 TP RO 5.9 g/dL 04/21/2018 Comp Metabolic Mpc452 GL OB 1.8 g/dL 04/21/2018 Comp Metabolic Wmh519 A/ G Ratio 2.3 Ratio 04/21/2018 Comp Metabolic Afm714 Os mo 282 mOsmo 04/21/2018 Total Psa [...] 31.5 pg 04/21/2018 Cbc With Differential Ord2 [place]% 11.4 % 04/21/2018 Cbc With Differential Ord2 [...] 1.42 K/ul 04/21/2018 Cbc With Differential Ord2 [place] ABS# 0.8 K/ul 04/21/2018 Cbc With Differential [...] 1: 122/70 Code: 8480-6 BMI: 25.5 Code: 37528-8 Heart Rate 1: 74 bpm Height: 5'10" SpO2: 98% Weight: 178 lbs 01/22/2019 Blood Pressure 1: 124/68 Code: 8480-6 Heart Rate 1: 65 bpm Height: 5'10" SpO2: 96% 01/01/2019 Blood Pressure 1: 122/70 Code: 8480-6 BMI: 25.4 Code: 73630-0 Heart Rate 1: 72 bpm Height: 5'10" SpO2: 97% Weight: 177 lbs 04/21/2018 Blood Pressure 1: 124/66 Code: 8480-6 BMI: 24.7 Code: 32581-1 Heart Rate 1: 64 bpm Height: 5'10" [...] Diagnosis: Mixed hyperlipidemia[ICD10: E78.2] Jania Chiu MD, [facility] CPT-4: 89889 04/03/2019 00121 17446 EST. P ATIENT, LEVEL III Diagnosis: Essential (primary) hypertension[ICD10: I10] Diagnosis: Other specified forms of tremor[ICD10: G25.2] Maria L Chiu MD, [facility] CPT-4: 77123 01/22/2019 74654 09581 EST. P ATIENT, LEVEL IV Diagnosis: Essential (primary) hypertension[ICD10: I10] Diagnosis: Other specified forms of tremor[ICD10: G25.2] Diagnosis: Other abnormal involuntary movements[ICD10: R25.8] Courtney Chiu MD, [facility] CPT-4: 38775 01/01/2019 OFFICE VISIT, NEW - LEVEL 3 Diagnosis: Other hypotension[ICD10: I95.89] Diagnosis: Mixed hyperlipidemia[ICD10: E78.2] Jania Chiu MD, [facility] CPT-4: 45838 04/21/2018 Plan of Care Planned Activity Notes [...] patient's termination from this medical practice. 04/03/2019 Appointment: Jania Parish [facility]Ptel[phone] ([facility] [place]) Complex 04/03/2019 Patient Education: Patient Medication Summary Completed 04/03/2019 Patient Education: Back Pain Completed 04/03/2019 Patient Education: Cholesterol Management Completed 04/03/2019 Care Plan: Comp Metabolic Pending 04/03/2019 Care Plan: Cbc With Differential Pending 04/03/2019 Care Plan: Tsh Pending 04/03/2019 Care Plan: Lipid Pending 04/03/2019 Care Plan: Referral Order SNOMED-CT : [id number] Pending 04/03/2019 Visit Plan: Hypertension - well [...] evaluation. 01/22/2019 Appointment: Maria L Leija WPtel: [phone] [phone] [place] (30 min) Complex 01/22/2019 Patient Education: Patient Medication Summary Completed [...] 01/01/2019 Visit Plan: Hypertension - well con trotyreled - continue with current medications, continue with [...] plan. 01/01/2019 Appointment: Maria L Leija WPtel: [facility]5 [facility] [place] [address] (30 min) Complex 01/01/2019 Patient Education: Patient [...] to medications. 04/21/2018 Appointment: Jania Parish WPtel: [facility] New Patient 04/21/2018 Patient Education: Patient Medication Summary Completed 04/21/2018 Referral: Ortho, [facility] WPtel: [address] [id number] [place] Referral Initiated Instructions Comment HOLD ATORVASTATIN [...] KAI RODGERS WITH DR RIKI PETERSON P [phone] F [phone] CT HEAD -ANY DAY AND ANY TIME [...]
--- NOTE | 2020-02-29 16:48 | ED General ---
General Stated Complaint: WEAKNESS,DIZZINESS,POST BACK SURGERY Source of Information: Patient History of Present Illness Date Seen by Provider: Feb 29, 2020 Time Seen by Provider: 16:48 Initial Comments 80-year-old male presents with weakness, possible dizziness, post back surgery. Patient had an L4-L5 fusion at [facility] on 02/20/2020. He has been home approximately one week. Reports that over the last few days he has gone from my 168 pounds to about 192 pounds. He reports that because of this weight gain he "can't get around" when I ask him what is causing him not real to get around he states "I just can't take care of myself" when I try to get a better understanding of his weakness issues, patient is very vague in his response Allergies and Home Medications Allergies Coded Allergies: Sulfa (Sulfonamide Antibiotics) (Verified Allergy, Unknown, 02/29/20) teriparatide (Verified Allergy, Unknown, 02/29/20) Uncoded Allergies: CARBIDOPA-LEVODOPA (Allergy, Unknown, 02/29/20) Patient Home Medication List Home Medication List Reviewed: Yes Review of Systems Review of Systems Constitutional: No chills; dizziness; No fever; weakness Respiratory: no symptoms reported Cardiovascular: see HPI, edema Gastrointestinal: no symptoms reported Genitourinary: no symptoms reported Musculoskeletal: no symptoms reported Skin: see HPI Psychiatric/Neurological: No Symptoms Reported Hematologic/Lymphatic: No Symptoms Reported Past Nwfczoi-Ifrwai-Woodvq Hx Past Med/Social Hx: Reviewed Nursing Past Med/Soc Hx Patient Social History Recent Foreign Travel: No Contact w/Someone Who Travel: No Physical Exam Vital Signs Vital Signs - First Documented 02/29/20 16:41 Temp 36.9 Pulse 77 Resp 18 B/P (MAP) 128/68 (88) Pulse Ox 99 O2 Delivery Room Air Capillary Refill : Height, Weight, BMI Height: '" Weight: lbs. oz. 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 Norm as Tested Skin: Normal Color, Warm/Dry Progress/Results/Core Measures Suspected Sepsis SIRS Temperature: Pulse: Respiratory Rate: Laboratory Tests 02/29/20 17:09: White Blood Count 6.9 Blood Pressure / Mean: Laboratory Tests 02/29/20 17:09: Creatinine 0.89, Platelet Count 349, Total Bilirubin 0.4 Results/Orders Lab Results Laboratory Tests Test 02/29/20 17:09 02/29/20 18:22 Range/Units White Blood Count 6.9 4.3-11.0 10^3/uL Red Blood Count 3.19 L 4.35-5.85 10^6/uL Hemoglobin 9.8 L 13.3-17.7 G/DL Hematocrit 30 L 40-54 % Mean Corpuscular Volume 95 80-99 FL Mean Corpuscular Hemoglobin 31 25-34 PG Mean Corpuscular Hemoglobin Concent 32 32-36 G/DL Red Cell Distribution Width 13.5 10.0-14.5 % Platelet Count 349 130-400 10^3/uL Mean Platelet Volume 9.4 7.4-10.4 FL Neutrophils (%) (Auto) 67 42-75 % Lymphocytes (%) (Auto) 13 12-44 % Monocytes (%) (Auto) 15 H 0-12 % Eosinophils (%) (Auto) 4 0-10 % Basophils (%) (Auto) 0 0-10 % Neutrophils # (Auto) 4.6 1.8-7.8 X 10^3 Lymphocytes # (Auto) 0.9 L 1.0-4.0 X 10^3 Monocytes # (Auto) 1.0 0.0-1.0 X 10^3 Eosinophils # (Auto) 0.3 0.0-0.3 10^3/uL Basophils # (Auto) 0.0 0.0-0.1 10^3/uL Sodium Level 141 135-145 MMOL/L Potassium Level 4.0 3.6-5.0 MMOL/L Chloride Level 99 98-107 MMOL/L Carbon Dioxide Level 31 21-32 MMOL/L Anion Gap 11 5-14 MMOL/L Blood Urea Nitrogen 19 H 7-18 MG/DL Creatinine 0.89 0.60-1.30 MG/DL Estimat Glomerular Filtration Rate > 60 BUN/Creatinine Ratio 21 Glucose Level 89 70-105 MG/DL Calcium Level 8.8 8.5-10.1 MG/DL Corrected Calcium 9.2 8.5-10.1 MG/DL Total Bilirubin 0.4 0.1-1.0 MG/DL Aspartate Amino Transf (AST/SGOT) 34 5-34 U/L Alanine Aminotransferase (ALT/SGPT) 24 0-55 U/L Alkaline Phosphatase 50 40-136 U/L Troponin I < 0.028 <0.028 NG/ML B-Type Natriuretic Peptide 65.8 <100.0 PG/ML Total Protein 6.0 L 6.4-8.2 GM/DL Albumin 3.5 3.2-4.5 GM/DL My Orders Orders - BINH CORREIA DO BNP (02/29/20 16:54) Cbc With Automated Diff (02/29/20 16:54) Comprehensive Metabolic Panel (02/29/20 16:54) Troponin I (02/29/20 16:54) Ua Culture If Indicated (02/29/20 16:54) Chest 1 View, Ap/Pa Only (02/29/20 16:54) Abdomen/Kub 1view (02/29/20 16:54) Ed Iv/Invasive Line Start (02/29/20 16:54) Ekg Tracing (02/29/20 16:54) Furosemide Tablet (Lasix Tablet) (02/29/20 18:00) Oxycodone Immediate Rel Tablet (Oxyir Ta (02/29/20 18:00) Vital Signs/I&O 02/29/20 02/29/20 16:41 18:15 Temp 36.9 Pulse 77 81 Resp 18 18 B/P (MAP) 128/68 (88) 148/83 Pulse Ox 99 97 O2 Delivery Room Air Room Air Capillary Refill : Diagnostic Imaging Diagonstic Imaging: Xray Plain Films/CT/US/NM/MRI: chest, abdomen Comments [facility] [place] NAME: SMITH AMIN [facility] REC#: [id number] PT STATUS: ADM Jo : 1940 PHYSICIAN: BINH CORREIA DO ADMIT DATE: 02/29/20/ Draft Date of Exam:02/29/20 CHEST 1 VIEW, AP/PA ONLY INDICATION: Fluid retention, nine days post lumbar spine surgery. TECHNIQUE: Single-view chest at 06:18 p.m. CORRELATION STUDY: None. FINDINGS: Heart size is borderline enlarged. Vasculature is overall slightly prominent. Lung wong are hyperinflated. There is an irregular, somewhat oval-shaped 4.7 cm density in the left mid lung field. IMPRESSION: 1. Borderline heart size and vasculature. 2. Abnormal oval-shaped density in the left mid lung field. This finding is nonspecific, however, could potentially reflect a loculated fluid collection, pseudomass, or infiltrate. Pulmonary mass however is not excluded. Short-term follow-up imaging is recommended for reassessment. [facility] [place] NAME: SMITH AMIN [facility] REC#: [id number] PT STATUS: ADM Jo : 1940 PHYSICIAN: BINH CORREIA DO ADMIT DATE: 02/29/20/ Draft Date of Exam:02/29/20 ABDOMEN/KUB 1VIEW INDICATION: Fluid retention, lumbar surgery nine days ago. TECHNIQUE: Single supine view of the abdomen 06:19 p.m. CORRELATION STUDY: None. FINDINGS: Scattered gas-filled loops of bowel are present. There is stool throughout the colon, moderate in severity including to the level of the rectum. No large fecal impaction or high-degree bowel obstruction. Posterior fusion hardware with transpedicular screws and interconnecting rods at L2, L4, and L5 levels. IMPRESSION: 1. Mild gas-filled loops of bowel may be reflective of mild ileus with moderate-severity fecal retention. Reviewed: Reviewed by Me, Reviewed/Discussed Departure Impression Primary Impression: Debility Additional Impression: Weakness Disposition: ADMITTED INPATIENT Condition: Stable Admissions Decision to Admit Reason: Admit from ER (General) Decision to Admit/Date: Feb 29, 2020 Time/Decision to Admit Time: 15:45 Departure-Patient Inst. Referrals: JERRY BONILLA MD (PCP/Family) Primary Care Physician BINH CORREIA DO Feb 29, 2020 16:48
--- OUTSIDE RECORDS SUMMARY | 2020-02-29 16:48 | XMS REPORT | CCD ---
Author Author Benoit Parish Organization Courtney Chiu MD, [facility] Address [address] [place] [address] Phone Care Team Providers Care Patient Biller Name Role Phone PP Unavailable CCM Unavailable Summary Purpose Interface Exchange Insurance Providers Payer name Policy type / Coverage type Covered alliance party ID Effective Begin Date Effective End Date WPS Medicare Part B Commercial Insurance [id number] Unknown FOR LIFE WPS Commercial Insurance [id number] Unknown Family history Mother Diagnosis Age At Onset Cancer Unknown Father Diagnosis Age At Onset Cancer Unknown Brother Diagnosis Age At Onset Cancer Unknown Social History Social History Element Codes Description Effective Dates Marital status Unknown M arried carson 04/21/2018 Number of children Unknown 4 04/21/2018 Employment Unknown 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 04/21/[address]: 896284 Currently drinks alcohol 04/21/2018 Allergies, Adverse Reactions, Alerts Substance Reaction Codes Entered Date Inactivated Date Status SULFA(SULFONAMIDE AN TIBIOTICS) Unknown 04/21/2018 No Inactive Date Active Past Medical History Illness Codes Condition Status Onset Date Resolved Date Essential (primary) hypertension ICD-9: 401.1 ICD-10: I10 Active 04/21/2018 Unknown Other abnormal invol untary movements ICD-9: 781.0 ICD-10: R25.8 Active 01/01/2019 Unknown Other specified form s of tremor ICD-9: 781.0 ICD-10: G25.2 Active 01/01/2019 Unknown Mixed hyperlipidemia ICD-9: 272.2 ICD-10: E78.2 Active 04/21/2018 Unknown Other hypotension ICD-9: 458.8 ICD-10: I95.89 Active 04/21/2018 Unknown Problems Condition Codes Effectiv e Dates Condition Status Essential (primary) hypertension ICD-9: 401.1 ICD-10: I10 04/21/2018 Active Other abnormal invol untary movements ICD-9: 781.0 ICD-10: R25.8 01/01/2019 Active Other specified form s of tremor ICD-9: 781.0 ICD-10: G25.2 01/01/2019 Active Mixed hyperlipidemia ICD-9: 272.2 ICD-10: E78.2 04/21/2018 Active Other hypotension ICD-9: 458.8 ICD-10: I95.89 04/21/2018 Active Medications Medication Codes Instruc tions Start Date Stop Date Sta tus Fill Instructions Zyrtec 10 mg tablet RxNorm: 8965200 1 Tablet(s) PO daily 01/01/2019 09/27/2019 Active aspirin 81 mg tablet RxNorm: 930639 1 Tablet(s) PO daily No Start Date Active Co Q-10 100 mg capsule RxNorm: 067334 1 Capsule(s) PO daily No Start Date Active Lipitor 10 mg tablet RxNorm: 121061 1/2 Tablet(s) PO daily No Start Date Active Toprol XL 25 mg tabl et,extended release RxNorm: 790444 1 Tablet(s) PO daily No Start Date 12/31/2018 Inactive Medication Administered No Medication Administered data Immunizations No Immunization data Assessments Condition Codes Effectiv e Dates Other specified forms of tremor ICD- 10: G25.2 ICD-9: 781.0 01/22/2019 Essential (primary) hypertension ICD -10: I10 ICD-9: 401.1 01/22/2019 Other abnormal involuntary movements ICD-10: R25.8 ICD-9: 781.0 01/01/2019 Mixed hyperlipidemia ICD-10: E78.2 ICD-9: 272.2 04/21/2018 Other hypotension ICD-10: I95.89 ICD-9: 458.8 04/21/2018 Reason For Visit Reason For Visit Effective Dates Notes dyskinesia or tremor 01/22/2019 dyskinesia or tremor [...] 31.6 pg 01/01/2019 Cbc With Differential Ord2 [place]% 10.9 % 01/01/2019 Cbc With Differential Ord2 [...] 1.55 K/ul 01/01/2019 Cbc With Differential Ord2 [place] ABS# 1.0 K/ul 01/01/2019 Cbc With Differential Ord2 Eos ABS# 0.3 K/ul 01/01/2019 Cbc With Differential Ord2 Baso ABS# 0.0 K/ul 01/01/2019 Comp Metabolic Pzj835 NA 144 mEq/L 01/01/2019 Comp Metabolic Skb754 K 4.6 mEq/L 01/01/2019 Comp Metabolic Ksl087 CL 103 mEq/L 01/01/2019 Comp Metabolic Cgv182 CO2 36.0 mEq/L 01/01/2019 Comp Metabolic Qih561 AN ION GAP 10 01/01/2019 Comp Metabolic Riy372 GL UCOSE 83 mg/dL 01/01/2019 Comp Metabolic Zns079 Cr eat 1.1 mg/dL 01/01/2019 Comp Metabolic Aln773 eG FR 71 ml/min/1.73m2 01/01 Comp Metabolic Qua554 BUN 25 mg/dL 01/01/2019 Comp Metabolic Viv873 B/ C Ratio 23.4 Ratio 01/01/2019 Comp Metabolic Nmt339 CA LCIUM 9.2 mg/dL 01/01/2019 Comp Metabolic Ngh827 AL K PHOS 54 U/L 01/01/2019 Comp Metabolic Sxj507 T(SGOT) 18 U/L 01/01/2019 Comp Metabolic Beq755 AL T(SGPT) 16 U/L 01/01/2019 Comp Metabolic Ltk216 BI LI T 0.5 mg/dL 01/01/2019 Comp Metabolic Yld298 AL BUMIN 3.9 g/dL 01/01/2019 Comp Metabolic Nyw184 TP RO 5.7 g/dL 01/01/2019 Comp Metabolic Cqv742 GL OB 1.8 g/dL 01/01/2019 Comp Metabolic Dou360 A/ G Ratio 2.1 Ratio 01/01/2019 Comp Metabolic Njf576 Os mo 290 mOsmo 01/01/2019 Phosphorus Ord71 PHOS 4.1 mg/dL 01/01/2019 Tsh Ord6 TSH (3rd IS) 0.81 uIU/mL 01/01/2019 Magnesium Ord90 Mag 2.2 mg/dL 01/01/2019 Lipid Ord30 CHOL 131 mg/dL 04/21/2018 Lipid Ord30 HDL 52.0 mg/dl 04/21/2018 Lipid Ord30 TRIG 68 mg/dL 04/21/2018 Lipid Ord30 LDL 65 mg/dL 04/21/2018 Lipid Ord30 C/HDL 2.5 Ratio 04/21/2018 Comp Metabolic Ouh953 NA 140 mEq/L 04/21/2018 Comp Metabolic Vae951 K 4.6 mEq/L 04/21/2018 Comp Metabolic Dgr784 CL 103 mEq/L 04/21/2018 Comp Metabolic Nwn196 CO2 32.0 mEq/L 04/21/2018 Comp Metabolic Kke935 AN ION GAP 10 04/21/2018 Comp Metabolic Ecc368 GL UCOSE 92 mg/dL 04/21/2018 Comp Metabolic Bsb952 Cr eat 1.0 mg/dL 04/21/2018 Comp Metabolic Bhy621 eG FR 77 ml/min/1.73m2 04/21 Comp Metabolic Vhq995 BUN 21 mg/dL 04/21/2018 Comp Metabolic Fum697 B/ C Ratio 21.0 Ratio 04/21/2018 Comp Metabolic Efz377 CA LCIUM 9.1 mg/dL 04/21/2018 Comp Metabolic Cnz469 AL K PHOS 48 U/L 04/21/2018 Comp Metabolic Sid760 T(SGOT) 22 U/L 04/21/2018 Comp Metabolic Rpw626 AL T(SGPT) 17 U/L 04/21/2018 Comp Metabolic Sec808 BI LI T 1.1 mg/dL 04/21/2018 Comp Metabolic Eje923 AL BUMIN 4.1 g/dL 04/21/2018 Comp Metabolic Rrt424 TP RO 5.9 g/dL 04/21/2018 Comp Metabolic Rvt490 GL OB 1.8 g/dL 04/21/2018 Comp Metabolic Byu174 A/ G Ratio 2.3 Ratio 04/21/2018 Comp Metabolic Mun859 Os mo 282 mOsmo 04/21/2018 Total Psa [...] 31.5 pg 04/21/2018 Cbc With Differential Ord2 [place]% 11.4 % 04/21/2018 Cbc With Differential Ord2 [...] 1.42 K/ul 04/21/2018 Cbc With Differential Ord2 Richardson ABS# 0.8 K/ul 04/21/2018 Cbc With Differential Ord2 Eos ABS# 0.3 K/ul 04/21/2018 Cbc With Differential Ord2 Baso ABS# 0.0 K/ul 04/21/2018 Tsh Ord6 TSH (3rd IS) 0.67 uIU/mL 04/21/2018 Review of Systems System Result Effective Dates Constitutional No recent illness 01/22/2019 Constitutional No [...] Result Effective Dates Notes Full Exam - General 1994 Constitutional general [...] tympanosclerosis 01/01/2019 None Full Exam - General 1994 Ears/Nose/Throat otoscopic exam Tympanic membrane: perforated 01/01/2019 [...] No Procedures data Vital Signs Date Vital 01/22/2019 Blood Pressure 1: 124/68 Code: 8480-6 Heart Rate 1: 65 bpm Height: 5'10" SpO2: 96% 01/01/2019 Blood Pressure 1: 122/70 Code: 8480-6 BMI: 25.4 Code: 90861-1 Heart Rate 1: 72 bpm Height: 5'10" SpO2: 97% Weight: 177 lbs 04/21/2018 Blood Pressure 1: 124/66 Code: 8480-6 BMI: 24.7 Code: 90194-9 Heart Rate 1: 64 bpm Height: 5'10" SpO2: 98% Weight: 172 lbs Functional Status No Functional Status data History of Present Illness Symptom Name Status Resu lt Effective Date Notes Location in the finger s of the [...] Encounters Encounter Performer Loca tion Codes Date [id number] EST. P ATIENT, LEVEL III Diagnosis: Essential (primary) hypertension[ICD10: I10] Diagnosis: Other specified forms of tremor[ICD10: G25.2] Maria L Chiu MD, [facility] CPT-4: 95824 01/22/2019 [id number]) [id number] EST. P ATIENT, LEVEL IV Diagnosis: Essential (primary) hypertension[ICD10: I10] Diagnosis: Other specified forms of tremor[ICD10: G25.2] Diagnosis: Other abnormal involuntary movements[ICD10: R25.8] Courtney Chiu MD, [facility] CPT-4: 31796 01/01/2019 OFFICE VISIT, NEW - LEVEL 3 Diagnosis: Other hypotension[ICD10: I95.89] Diagnosis: Mixed hyperlipidemia[ICD10: E78.2] Jania Chiu MD, [facility] CPT-4: 45109 04/21/2018 Plan of Care Planned Activity Notes C odes Status Date Visit Plan: Hypertension - well con trolled - continue with current medications, continue with no added salt diet. Pt has been encouraged to exercise daily. The pt has been advised to call the office if there are any acute concerns about change in blood pressure readings at home. Tremor -sudden onset 6 weeks ago -will schedule CT head for further evaluation. 01/22/2019 Patient Education: Patient Medication Summary Completed [...] 01/01/2019 Appointment: Maria L Leija WPtel: [phone] [facility] [place] [address] (30 min) Complex 01/01/2019 Patient Education: Patient [...] to medications. 04/21/2018 Appointment: Jania Parish WPtel: [phone] [facility] New Patient 04/21/2018 Patient Education: Patient Medication [...] physical exam, and the assessment and plan. FAX NOTES TO KAI RODGERS WITH DR RIKI PETERSON P [phone] F [phone] CT HEAD -ANY DAY AND ANY TIME [...]
--- OUTSIDE RECORDS SUMMARY | 2020-02-29 16:48 | XMS REPORT | CCD ---
Author Author Benoit Parish Organization Courtney Chiu MD, 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 Name Role Phone PP Unavailable CCM Unavailable Summary Purpose Interface Exchange Insurance Providers Payer name Policy type / Coverage type Covered green party ID Effective Begin Date Effective End Date WPS Medicare Part B Commercial Insurance [id number] Unknown FOR LIFE WPS Commercial Insurance [id number] Unknown Family history Mother Diagnosis Age At Onset Cancer Unknown Father Diagnosis Age At Onset Cancer Unknown Brother Diagnosis Age At Onset Cancer Unknown Social History Social History Element Codes Description Effective Dates Marital status Unknown M arried carson 04/21/2018 Number of children Unknown 4 04/21/2018 Employment 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 04/21/[address]: 961545 Currently drinks alcohol 04/21/2018 Allergies, Adverse Reactions, [...] Fill Instructions Zyrtec 10 mg tablet RxNorm: 5385112 1 Tablet(s) PO daily 01/01/2019 09/27/2019 Active aspirin 81 mg tablet RxNorm: 751000 1 Tablet(s) PO daily No Start Date Active Co Q-10 100 mg capsule RxNorm: 666035 1 Capsule(s) PO daily No Start Date Active Lipitor 10 mg tablet RxNorm: 863211 1/2 Tablet(s) PO daily No Start Date Active Toprol XL 25 mg tabl et,extended release RxNorm: 684134 1 Tablet(s) PO daily No Start Date [...] 31.6 pg 01/01/2019 Cbc With Differential Ord2 [place]% 10.9 % 01/01/2019 Cbc With Differential Ord2 [...] 1.55 K/ul 01/01/2019 Cbc With Differential Ord2 [place] ABS# 1.0 K/ul 01/01/2019 Cbc With Differential Ord2 Eos ABS# 0.3 K/ul 01/01/2019 Cbc With Differential Ord2 Baso ABS# 0.0 K/ul 01/01/2019 Comp Metabolic Ypu493 NA 144 mEq/L 01/01/2019 Comp Metabolic Yxe335 K 4.6 mEq/L 01/01/2019 Comp Metabolic Atu045 CL 103 mEq/L 01/01/2019 Comp Metabolic Flt157 CO2 36.0 mEq/L 01/01/2019 Comp Metabolic Kcg948 AN ION GAP 10 01/01/2019 Comp Metabolic Bii575 GL UCOSE 83 mg/dL 01/01/2019 Comp Metabolic Xvw068 Cr eat 1.1 mg/dL 01/01/2019 Comp Metabolic Kix521 eG FR 71 ml/min/1.73m2 01/01 Comp Metabolic Wbo104 BUN 25 mg/dL 01/01/2019 Comp Metabolic Nxy023 B/ C Ratio 23.4 Ratio 01/01/2019 Comp Metabolic Rep023 CA LCIUM 9.2 mg/dL 01/01/2019 Comp Metabolic Stn251 AL K PHOS 54 U/L 01/01/2019 Comp Metabolic Rqe481 T(SGOT) 18 U/L 01/01/2019 Comp Metabolic Qfg476 AL T(SGPT) 16 U/L 01/01/2019 Comp Metabolic Kgy273 BI LI T 0.5 mg/dL 01/01/2019 Comp Metabolic Zeu244 AL BUMIN 3.9 g/dL 01/01/2019 Comp Metabolic Kiv348 TP RO 5.7 g/dL 01/01/2019 Comp Metabolic Frt867 GL OB 1.8 g/dL 01/01/2019 Comp Metabolic Qxv258 A/ G Ratio 2.1 Ratio 01/01/2019 Comp Metabolic Omd623 Os mo 290 mOsmo 01/01/2019 Phosphorus Ord71 PHOS 4.1 mg/dL 01/01/2019 Tsh Ord6 TSH (3rd IS) 0.81 uIU/mL 01/01/2019 Magnesium Ord90 Mag 2.2 mg/dL 01/01/2019 Lipid Ord30 CHOL 131 mg/dL 04/21/2018 Lipid Ord30 HDL 52.0 mg/dl 04/21/2018 Lipid Ord30 TRIG 68 mg/dL 04/21/2018 Lipid Ord30 LDL 65 mg/dL 04/21/2018 Lipid Ord30 C/HDL 2.5 Ratio 04/21/2018 Comp Metabolic Mvl659 NA 140 mEq/L 04/21/2018 Comp Metabolic Qzr260 K 4.6 mEq/L 04/21/2018 Comp Metabolic Pls849 CL 103 mEq/L 04/21/2018 Comp Metabolic Nmy372 CO2 32.0 mEq/L 04/21/2018 Comp Metabolic Fsb417 AN ION GAP 10 04/21/2018 Comp Metabolic Dmc414 GL UCOSE 92 mg/dL 04/21/2018 Comp Metabolic Pbg510 Cr eat 1.0 mg/dL 04/21/2018 Comp Metabolic Mcd564 eG FR 77 ml/min/1.73m2 04/21 Comp Metabolic Mbx023 BUN 21 mg/dL 04/21/2018 Comp Metabolic Xnf368 B/ C Ratio 21.0 Ratio 04/21/2018 Comp Metabolic Atq804 CA LCIUM 9.1 mg/dL 04/21/2018 Comp Metabolic Hix654 AL K PHOS 48 U/L 04/21/2018 Comp Metabolic Bvp389 T(SGOT) 22 U/L 04/21/2018 Comp Metabolic Czx659 AL T(SGPT) 17 U/L 04/21/2018 Comp Metabolic Dya092 BI LI T 1.1 mg/dL 04/21/2018 Comp Metabolic Idw497 AL BUMIN 4.1 g/dL 04/21/2018 Comp Metabolic Wjn168 TP RO 5.9 g/dL 04/21/2018 Comp Metabolic Phy120 GL OB 1.8 g/dL 04/21/2018 Comp Metabolic Xbk690 A/ G Ratio 2.3 Ratio 04/21/2018 Comp Metabolic Hzs533 Os mo 282 mOsmo 04/21/2018 Total Psa [...] 31.5 pg 04/21/2018 Cbc With Differential Ord2 [place]% 11.4 % 04/21/2018 Cbc With Differential Ord2 [...] 1.42 K/ul 04/21/2018 Cbc With Differential Ord2 [place] ABS# 0.8 K/ul 04/21/2018 Cbc With Differential [...] 1: 122/70 Code: 8480-6 BMI: 25.4 Code: 70541-0 Heart Rate 1: 72 bpm Height: 5'10" SpO2: 97% Weight: 177 lbs 04/21/2018 Blood Pressure 1: 124/66 Code: 8480-6 BMI: 24.7 Code: 02217-0 Heart Rate 1: 64 bpm Height: 5'10" [...] Encounters Encounter Performer Loca tion Codes Date ([id number]) [id number] EST. P ATIENT, LEVEL III Diagnosis: Essential (primary) hypertension[ICD10: I10] Diagnosis: Other specified forms of tremor[ICD10: G25.2] Maria L Chiu MD, [facility] CPT-4: 97479 01/22/2019 [id number]) [id number] EST. P ATIENT, LEVEL IV Diagnosis: Essential (primary) hypertension[ICD10: I10] Diagnosis: Other specified forms of tremor[ICD10: G25.2] Diagnosis: Other abnormal involuntary movements[ICD10: R25.8] Courtney Chiu MD, [facility] CPT-4: 96876 01/01/2019 OFFICE VISIT, NEW - LEVEL 3 Diagnosis: Other hypotension[ICD10: I95.89] Diagnosis: Mixed hyperlipidemia[ICD10: E78.2] Jania Chiu MD, [facility] CPT-4: 05026 04/21/2018 Plan of Care Planned Activity Notes [...] evaluation. 01/22/2019 Appointment: Maria L Leija WPtel: [address] [place], [place] [phone] (30 min) Complex 01/22/2019 Patient Education: Patient [...] plan. 01/01/2019 Appointment: Maria L Leija WPtel: [facility] [phone] (30 min) Complex 01/01/2019 Patient Education: Patient [...] to medications. 04/21/2018 Appointment: Jania Parish WPtel: [facility] [place] [place] New Patient 04/21/2018 Patient Education: Patient [...] KAI RODGERS WITH DR RIKI PETERSON P [phone] F [phone] CT HEAD -ANY DAY AND ANY TIME [...]
--- OUTSIDE RECORDS SUMMARY | 2020-02-29 16:48 | XMS REPORT | CCD ---
Author Author Benoit Parish Organization Courtney Chiu MD, [facility] Address [address] [place] [address] Phone Care Team Providers Care Candle Cutter Name Role Phone PP Unavailable CCM Unavailable Summary Purpose Interface Exchange Insurance Providers Payer name Policy type / Coverage type Covered green party ID Effective Begin Date Effective End Date WPS Medicare Part B Commercial Insurance [id number] Unknown FOR LIFE WPS Commercial Insurance [id number] Unknown Family history Mother Diagnosis Age At Onset Cancer Unknown Father Diagnosis Age At Onset Cancer Unknown Brother Diagnosis Age At Onset Cancer Unknown Social History Social History Element Codes Description Effective Dates Marital status Unknown M arried carson 04/21/2018 Number of children Unknown 4 04/21/2018 Employment 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 04/21/[address]: 718787 Currently drinks alcohol 04/21/2018 Allergies, Adverse Reactions, [...] Fill Instructions Zyrtec 10 mg tablet RxNorm: 5930919 1 Tablet(s) PO daily 01/01/2019 09/27/2019 Active aspirin 81 mg tablet RxNorm: 426877 1 Tablet(s) PO daily No Start Date Active Lipitor 10 mg tablet RxNorm: 694089 1/2 Tablet(s) PO daily No Start Date Active Toprol XL 25 mg tabl et,extended release RxNorm: 214904 1 Tablet(s) PO daily No Start Date 12/31/2018 Inactive Medication Administered No Medication Administered data Immunizations No Immunization data Assessments Condition Codes Effectiv e Dates Other specified forms of tremor ICD- 10: G25.2 ICD-9: 781.0 01/01/2019 Other abnormal involuntary movements ICD-10: R25.8 ICD-9: 781.0 01/01/2019 Essential (primary) hypertension ICD -10: I10 ICD-9: 401.1 01/01/2019 Mixed hyperlipidemia ICD-10: E78.2 ICD-9: 272.2 04/21/2018 Other hypotension ICD-10: I95.89 ICD-9: 458.8 04/21/2018 Reason For Visit Reason For Visit Effective Dates Notes dyskinesia or tremor 01/01/2019 hypertension 04/21/2018 Results [...] 31.6 pg 01/01/2019 Cbc With Differential Ord2 [place]% 10.9 % 01/01/2019 Cbc With Differential Ord2 [...] 1.55 K/ul 01/01/2019 Cbc With Differential Ord2 [place] ABS# 1.0 K/ul 01/01/2019 Cbc With Differential Ord2 Eos ABS# 0.3 K/ul 01/01/2019 Cbc With Differential Ord2 Baso ABS# 0.0 K/ul 01/01/2019 Comp Metabolic Uoo035 NA 144 mEq/L 01/01/2019 Comp Metabolic Diz627 K 4.6 mEq/L 01/01/2019 Comp Metabolic Kel002 CL 103 mEq/L 01/01/2019 Comp Metabolic Ukc390 CO2 36.0 mEq/L 01/01/2019 Comp Metabolic Byb058 AN ION GAP 10 01/01/2019 Comp Metabolic Jit254 GL UCOSE 83 mg/dL 01/01/2019 Comp Metabolic Cgz221 Cr eat 1.1 mg/dL 01/01/2019 Comp Metabolic Oqx011 eG FR 71 ml/min/1.73m2 01/01 Comp Metabolic Kol779 BUN 25 mg/dL 01/01/2019 Comp Metabolic Gfx122 B/ C Ratio 23.4 Ratio 01/01/2019 Comp Metabolic Vyu098 CA LCIUM 9.2 mg/dL 01/01/2019 Comp Metabolic Jmj401 AL K PHOS 54 U/L 01/01/2019 Comp Metabolic Dbu461 T(SGOT) 18 U/L 01/01/2019 Comp Metabolic Cxw286 AL T(SGPT) 16 U/L 01/01/2019 Comp Metabolic Dpz523 BI LI T 0.5 mg/dL 01/01/2019 Comp Metabolic Ipg776 AL BUMIN 3.9 g/dL 01/01/2019 Comp Metabolic Ipw282 TP RO 5.7 g/dL 01/01/2019 Comp Metabolic Udg258 GL OB 1.8 g/dL 01/01/2019 Comp Metabolic Hon566 A/ G Ratio 2.1 Ratio 01/01/2019 Comp Metabolic Ayk175 Os mo 290 mOsmo 01/01/2019 Phosphorus Ord71 PHOS 4.1 mg/dL 01/01/2019 Tsh Ord6 TSH (3rd IS) 0.81 uIU/mL 01/01/2019 Magnesium Ord90 Mag 2.2 mg/dL 01/01/2019 Lipid Ord30 CHOL 131 mg/dL 04/21/2018 Lipid Ord30 HDL 52.0 mg/dl 04/21/2018 Lipid Ord30 TRIG 68 mg/dL 04/21/2018 Lipid Ord30 LDL 65 mg/dL 04/21/2018 Lipid Ord30 C/HDL 2.5 Ratio 04/21/2018 Comp Metabolic Cnh865 NA 140 mEq/L 04/21/2018 Comp Metabolic Edq312 K 4.6 mEq/L 04/21/2018 Comp Metabolic Cri351 CL 103 mEq/L 04/21/2018 Comp Metabolic Say527 CO2 32.0 mEq/L 04/21/2018 Comp Metabolic Fyw882 AN ION GAP 10 04/21/2018 Comp Metabolic Mwl714 GL UCOSE 92 mg/dL 04/21/2018 Comp Metabolic Swt620 Cr eat 1.0 mg/dL 04/21/2018 Comp Metabolic Kgy892 eG FR 77 ml/min/1.73m2 04/21 Comp Metabolic Fut068 BUN 21 mg/dL 04/21/2018 Comp Metabolic Mba098 B/ C Ratio 21.0 Ratio 04/21/2018 Comp Metabolic Zdx588 CA LCIUM 9.1 mg/dL 04/21/2018 Comp Metabolic Gei615 AL K PHOS 48 U/L 04/21/2018 Comp Metabolic Fzx410 T(SGOT) 22 U/L 04/21/2018 Comp Metabolic Pzm727 AL T(SGPT) 17 U/L 04/21/2018 Comp Metabolic Jxc544 BI LI T 1.1 mg/dL 04/21/2018 Comp Metabolic Era938 AL BUMIN 4.1 g/dL 04/21/2018 Comp Metabolic Ijd645 TP RO 5.9 g/dL 04/21/2018 Comp Metabolic Ynn841 GL OB 1.8 g/dL 04/21/2018 Comp Metabolic Tvq580 A/ G Ratio 2.3 Ratio 04/21/2018 Comp Metabolic Jvw215 Os mo 282 mOsmo 04/21/2018 Total Psa [...] 31.5 pg 04/21/2018 Cbc With Differential Ord2 [place]% 11.4 % 04/21/2018 Cbc With Differential Ord2 [...] 1.42 K/ul 04/21/2018 Cbc With Differential Ord2 [place] ABS# 0.8 K/ul 04/21/2018 Cbc With Differential Ord2 Eos ABS# 0.3 K/ul 04/21/2018 Cbc With Differential Ord2 Baso ABS# 0.0 K/ul 04/21/2018 Tsh Ord6 TSH (3rd IS) 0.67 uIU/mL 04/21/2018 Review of Systems System Result Effective Dates Musculoskeletal back pain 01/01/2019 Musculoskeletal No neck [...] Effective Dates Notes Full Exam - General 1995 Constitutional general appearance Overall: well developed 01/01/2019 [...] No Procedures data Vital Signs Date Vital 01/01/2019 Blood Pressure 1: 122/70 Code: 8480-6 BMI: 25.4 Code: 52083-2 Heart Rate 1: 72 bpm Height: 5'10" SpO2: 97% Weight: 177 lbs 04/21/2018 Blood Pressure 1: 124/66 Code: 8480-6 BMI: 24.7 Code: 27195-0 Heart Rate 1: 64 bpm Height: 5'10" [...] Encounters Encounter Performer Loca tion Codes Date (56238) 90843 EST. P ATIENT, LEVEL IV Diagnosis: Essential (primary) hypertension[ICD10: I10] Diagnosis: Other specified forms of tremor[ICD10: G25.2] Diagnosis: Other abnormal involuntary movements[ICD10: R25.8] Courtney Chiu MD, [facility] CPT-4: 63174 01/01/2019 OFFICE VISIT, NEW - LEVEL 3 Diagnosis: Other hypotension[ICD10: I95.89] Diagnosis: Mixed hyperlipidemia[ICD10: E78.2] Jania Chiu MD, [facility] CPT-4: 79424 04/21/2018 Plan of Care Planned Activity Notes [...] exam, and the assessment and plan. 01/01/2019 Patient Education: Patient Medication Summary Completed [...] to medications. 04/21/2018 Appointment: Jania Parish WPtel[facility] [facility] 04/21/2018 Patient Education: Patient Medication [...] physical exam, and the assessment and plan. . Hypotension - pt i s to [...]
--- OUTSIDE RECORDS SUMMARY | 2020-02-29 16:49 | XMS REPORT | CCD ---
Author Author Benoit Parish Organization Courtney Chiu MD, [facility] Address [address] [place] [address] Phone Care Team Providers Care Laundry Room Attendant Name Role Phone PP Unavailable CCM Unavailable Summary Purpose Interface Exchange Insurance Providers Payer name Policy type / Coverage type Covered green party ID Effective Begin Date Effective End Date WPS Medicare Part B Commercial Insurance [id number] Unknown FOR LIFE WPS Commercial Insurance [id number] Unknown Family history Mother Diagnosis Age At Onset Cancer Unknown Father Diagnosis Age At Onset Cancer Unknown Brother Diagnosis Age At Onset Cancer Unknown Social History Social History Element Codes Description Effective Dates Marital status Unknown M arried carson 04/21/2018 Number of children Unknown 4 04/21/2018 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 04/21/[address]: 475978 Currently drinks alcohol 04/21/2018 Allergies, Adverse Reactions, [...] Fill Instructions Zyrtec 10 mg tablet RxNorm: 9632083 1 Tablet(s) PO daily 01/01/2019 09/27/2019 Active aspirin 81 mg tablet RxNorm: 608940 1 Tablet(s) PO daily No Start Date Active Lipitor 10 mg tablet RxNorm: 236083 1/2 Tablet(s) PO daily No Start Date Active Toprol XL 25 mg tabl et,extended release RxNorm: 404041 1 Tablet(s) PO daily No Start Date [...] 31.6 pg 01/01/2019 Cbc With Differential Ord2 [place]% 10.9 % 01/01/2019 Cbc With Differential Ord2 [...] 1.55 K/ul 01/01/2019 Cbc With Differential Ord2 [place] ABS# 1.0 K/ul 01/01/2019 Cbc With Differential Ord2 Eos ABS# 0.3 K/ul 01/01/2019 Cbc With Differential Ord2 Baso ABS# 0.0 K/ul 01/01/2019 Comp Metabolic Txa929 NA 144 mEq/L 01/01/2019 Comp Metabolic Dyg076 K 4.6 mEq/L 01/01/2019 Comp Metabolic Qfu509 CL 103 mEq/L 01/01/2019 Comp Metabolic Pmx705 CO2 36.0 mEq/L 01/01/2019 Comp Metabolic Jgz988 AN ION GAP 10 01/01/2019 Comp Metabolic Koo310 GL UCOSE 83 mg/dL 01/01/2019 Comp Metabolic Edd721 Cr eat 1.1 mg/dL 01/01/2019 Comp Metabolic Gyy116 eG FR 71 ml/min/1.73m2 01/01 Comp Metabolic Xxz806 BUN 25 mg/dL 01/01/2019 Comp Metabolic Vde423 B/ C Ratio 23.4 Ratio 01/01/2019 Comp Metabolic Zuk500 CA LCIUM 9.2 mg/dL 01/01/2019 Comp Metabolic Qef997 AL K PHOS 54 U/L 01/01/2019 Comp Metabolic Tla594 T(SGOT) 18 U/L 01/01/2019 Comp Metabolic Smi003 AL T(SGPT) 16 U/L 01/01/2019 Comp Metabolic Jzr443 BI LI T 0.5 mg/dL 01/01/2019 Comp Metabolic Pmv840 AL BUMIN 3.9 g/dL 01/01/2019 Comp Metabolic Yyr122 TP RO 5.7 g/dL 01/01/2019 Comp Metabolic Pxs677 GL OB 1.8 g/dL 01/01/2019 Comp Metabolic Ysf433 A/ G Ratio 2.1 Ratio 01/01/2019 Comp Metabolic Roh481 Os mo 290 mOsmo 01/01/2019 Phosphorus Ord71 PHOS 4.1 mg/dL 01/01/2019 Magnesium Ord90 Mag 2.2 mg/dL 01/01/2019 Lipid Ord30 CHOL 131 mg/dL 04/21/2018 Lipid Ord30 HDL 52.0 mg/dl 04/21/2018 Lipid Ord30 TRIG 68 mg/dL 04/21/2018 Lipid Ord30 LDL 65 mg/dL 04/21/2018 Lipid Ord30 C/HDL 2.5 Ratio 04/21/2018 Comp Metabolic Qhh671 NA 140 mEq/L 04/21/2018 Comp Metabolic Fbp980 K 4.6 mEq/L 04/21/2018 Comp Metabolic Gwx302 CL 103 mEq/L 04/21/2018 Comp Metabolic Pht170 CO2 32.0 mEq/L 04/21/2018 Comp Metabolic Gus225 AN ION GAP 10 04/21/2018 Comp Metabolic Wfd828 GL UCOSE 92 mg/dL 04/21/2018 Comp Metabolic Kky571 Cr eat 1.0 mg/dL 04/21/2018 Comp Metabolic Pty888 eG FR 77 ml/min/1.73m2 04/21 Comp Metabolic Ocx993 BUN 21 mg/dL 04/21/2018 Comp Metabolic Poz892 B/ C Ratio 21.0 Ratio 04/21/2018 Comp Metabolic Rut702 CA LCIUM 9.1 mg/dL 04/21/2018 Comp Metabolic Pge786 AL K PHOS 48 U/L 04/21/2018 Comp Metabolic Bsn912 T(SGOT) 22 U/L 04/21/2018 Comp Metabolic Bzu057 AL T(SGPT) 17 U/L 04/21/2018 Comp Metabolic Byx160 BI LI T 1.1 mg/dL 04/21/2018 Comp Metabolic Nll583 AL BUMIN 4.1 g/dL 04/21/2018 Comp Metabolic Xlb444 TP RO 5.9 g/dL 04/21/2018 Comp Metabolic Suo664 GL OB 1.8 g/dL 04/21/2018 Comp Metabolic Mca238 A/ G Ratio 2.3 Ratio 04/21/2018 Comp Metabolic Qmx131 Os mo 282 mOsmo 04/21/2018 Total Psa [...] 31.5 pg 04/21/2018 Cbc With Differential Ord2 [place]% 11.4 % 04/21/2018 Cbc With Differential Ord2 [...] 1.42 K/ul 04/21/2018 Cbc With Differential Ord2 [place] ABS# 0.8 K/ul 04/21/2018 Cbc With Differential [...] 1: 122/70 Code: 8480-6 BMI: 25.4 Code: 09068-0 Heart Rate 1: 72 bpm Height: 5'10" SpO2: 97% Weight: 177 lbs 04/21/2018 Blood Pressure 1: 124/66 Code: 8480-6 BMI: 24.7 Code: 91712-1 Heart Rate 1: 64 bpm Height: 5'10" [...] Encounters Encounter Performer Loca tion Codes Date (82474) 21807 EST. P ATIENT, LEVEL III Diagnosis: Essential (primary) hypertension[ICD10: I10] Diagnosis: Other specified forms of tremor[ICD10: G25.2] Diagnosis: Other abnormal involuntary movements[ICD10: R25.8] [facility] CPT-4: 39282 01/01/2019 OFFICE VISIT, NEW - LEVEL 3 Diagnosis: Other hypotension[ICD10: I95.89] Diagnosis: Mixed hyperlipidemia[ICD10: E78.2] [facility] CPT-4: 59318 04/21/2018 Plan of Care Planned Activity Notes [...] thyroid -follow up in 3 weeks 01/01/2019 Patient Education: Patient Medication Summary Completed 01/01/2019 Care Plan: Tsh Pending 01/01/2019 Visit Plan: Hypotension - pt is [...] to medications. 04/21/2018 Appointment: Jania Parish WPtel: [address] [place], [place] [id number] New Patient 04/21/2018 Patient Education: Patient Medication [...] thyroid -follow up in 3 weeks . Hypotension - pt i s to [...]
--- OUTSIDE RECORDS SUMMARY | 2020-02-29 16:49 | XMS REPORT | CCD ---
Author Author Benoit Parish Organization Courtney Chiu MD, [facility] Address [address] [place] [address] Phone Care Team Providers Care Coal Unloader Name Role Phone PP Unavailable CCM Unavailable Summary Purpose Interface Exchange Insurance Providers Payer name Policy type / Coverage type Covered constitution party ID Effective Begin Date Effective End Date WPS Medicare Part B Commercial Insurance [id number] Unknown FOR LIFE WPS Commercial Insurance [id number] Unknown Family history Mother Diagnosis Age At Onset Cancer Unknown Father Diagnosis Age At Onset Cancer Unknown Brother Diagnosis Age At Onset Cancer Unknown Social History Social History Element Codes Description Effective Dates Marital status Unknown M arried carson 04/21/2018 Number of children Unknown 4 04/21/2018 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 04/21/[address]: 812267 Currently drinks alcohol 04/21/2018 Allergies, Adverse Reactions, [...] Fill Instructions Zyrtec 10 mg tablet RxNorm: 2525668 1 Tablet(s) PO daily 01/01/2019 09/27/2019 Active aspirin 81 mg tablet RxNorm: 533868 1 Tablet(s) PO daily No Start Date Active Lipitor 10 mg tablet RxNorm: 870107 1/2 Tablet(s) PO daily No Start Date Active Toprol XL 25 mg tabl et,extended release RxNorm: 839719 1 Tablet(s) PO daily No Start Date [...] 31.6 pg 01/01/2019 Cbc With Differential Ord2 [place]% 10.9 % 01/01/2019 Cbc With Differential Ord2 [...] 1.55 K/ul 01/01/2019 Cbc With Differential Ord2 [place] ABS# 1.0 K/ul 01/01/2019 Cbc With Differential Ord2 Eos ABS# 0.3 K/ul 01/01/2019 Cbc With Differential Ord2 Baso ABS# 0.0 K/ul 01/01/2019 Comp Metabolic Hgz144 NA 144 mEq/L 01/01/2019 Comp Metabolic Vpw995 K 4.6 mEq/L 01/01/2019 Comp Metabolic Pef885 CL 103 mEq/L 01/01/2019 Comp Metabolic Tgn953 CO2 36.0 mEq/L 01/01/2019 Comp Metabolic Lic736 AN ION GAP 10 01/01/2019 Comp Metabolic Jzt318 GL UCOSE 83 mg/dL 01/01/2019 Comp Metabolic Ryt618 Cr eat 1.1 mg/dL 01/01/2019 Comp Metabolic Evx188 eG FR 71 ml/min/1.73m2 01/01 Comp Metabolic Cxn788 BUN 25 mg/dL 01/01/2019 Comp Metabolic Idr105 B/ C Ratio 23.4 Ratio 01/01/2019 Comp Metabolic Ypq669 CA LCIUM 9.2 mg/dL 01/01/2019 Comp Metabolic Tfi339 AL K PHOS 54 U/L 01/01/2019 Comp Metabolic Heo374 T(SGOT) 18 U/L 01/01/2019 Comp Metabolic Hqo873 AL T(SGPT) 16 U/L 01/01/2019 Comp Metabolic Hry469 BI LI T 0.5 mg/dL 01/01/2019 Comp Metabolic Nuw256 AL BUMIN 3.9 g/dL 01/01/2019 Comp Metabolic Nmv678 TP RO 5.7 g/dL 01/01/2019 Comp Metabolic Tde569 GL OB 1.8 g/dL 01/01/2019 Comp Metabolic Gzi571 A/ G Ratio 2.1 Ratio 01/01/2019 Comp Metabolic Ooc203 Os mo 290 mOsmo 01/01/2019 Phosphorus Ord71 PHOS 4.1 mg/dL 01/01/2019 Tsh Ord6 TSH (3rd IS) 0.81 uIU/mL 01/01/2019 Magnesium Ord90 Mag 2.2 mg/dL 01/01/2019 Lipid Ord30 CHOL 131 mg/dL 04/21/2018 Lipid Ord30 HDL 52.0 mg/dl 04/21/2018 Lipid Ord30 TRIG 68 mg/dL 04/21/2018 Lipid Ord30 LDL 65 mg/dL 04/21/2018 Lipid Ord30 C/HDL 2.5 Ratio 04/21/2018 Comp Metabolic Gjw450 NA 140 mEq/L 04/21/2018 Comp Metabolic Ycb449 K 4.6 mEq/L 04/21/2018 Comp Metabolic Bxt621 CL 103 mEq/L 04/21/2018 Comp Metabolic Osg041 CO2 32.0 mEq/L 04/21/2018 Comp Metabolic Cka530 AN ION GAP 10 04/21/2018 Comp Metabolic Vpo346 GL UCOSE 92 mg/dL 04/21/2018 Comp Metabolic Mpn265 Cr eat 1.0 mg/dL 04/21/2018 Comp Metabolic Wty646 eG FR 77 ml/min/1.73m2 04/21 Comp Metabolic Kkp573 BUN 21 mg/dL 04/21/2018 Comp Metabolic Ynl821 B/ C Ratio 21.0 Ratio 04/21/2018 Comp Metabolic Acc075 CA LCIUM 9.1 mg/dL 04/21/2018 Comp Metabolic Uzo360 AL K PHOS 48 U/L 04/21/2018 Comp Metabolic Cnj879 T(SGOT) 22 U/L 04/21/2018 Comp Metabolic Oxj835 AL T(SGPT) 17 U/L 04/21/2018 Comp Metabolic Omi208 BI LI T 1.1 mg/dL 04/21/2018 Comp Metabolic Kyg404 AL BUMIN 4.1 g/dL 04/21/2018 Comp Metabolic Ikn104 TP RO 5.9 g/dL 04/21/2018 Comp Metabolic Iyz561 GL OB 1.8 g/dL 04/21/2018 Comp Metabolic Grt030 A/ G Ratio 2.3 Ratio 04/21/2018 Comp Metabolic Syi119 Os mo 282 mOsmo 04/21/2018 Total Psa [...] 31.5 pg 04/21/2018 Cbc With Differential Ord2 [place]% 11.4 % 04/21/2018 Cbc With Differential Ord2 [...] 1.42 K/ul 04/21/2018 Cbc With Differential Ord2 [place] ABS# 0.8 K/ul 04/21/2018 Cbc With Differential [...] 1: 122/70 Code: 8480-6 BMI: 25.4 Code: 76109-2 Heart Rate 1: 72 bpm Height: 5'10" SpO2: 97% Weight: 177 lbs 04/21/2018 Blood Pressure 1: 124/66 Code: 8480-6 BMI: 24.7 Code: 77746-2 Heart Rate 1: 64 bpm Height: 5'10" [...] Encounters Encounter Performer Loca tion Codes Date (74929) 05546 EST. P ATIENT, LEVEL IV Diagnosis: Essential (primary) hypertension[ICD10: I10] Diagnosis: Other specified forms of tremor[ICD10: G25.2] Diagnosis: Other abnormal involuntary movements[ICD10: R25.8] Courtney Chiu MD, [facility] CPT-4: 48673 01/01/2019 OFFICE VISIT, NEW - LEVEL 3 Diagnosis: Other hypotension[ICD10: I95.89] Diagnosis: Mixed hyperlipidemia[ICD10: E78.2] Jania Chiu MD, [facility] CPT-4: 57511 04/21/2018 Plan of Care Planned Activity Notes [...] to medications. 04/21/2018 Appointment: Jania Parish WPtel[facility] [facility] 04/21/2018 Patient Education: Patient [...]
--- OUTSIDE RECORDS SUMMARY | 2020-02-29 16:49 | XMS REPORT | Continuity of Care Document ---
Author Organization Unknown Address Unknown Phone Unavailable Allergies There is no data. Medications There is no data. 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 Results There is no data. Encounters ACCT No. Visit Date/Time Discharge Status Pt. Type Provider Facility Loc./Unit Complaint [id number] 04/20/2018 14:52:00 04/20/2018 23:59:5 9 CLS Outpatient [id number] 01/24/2019 12:55:00 019 23:59:59 CLS Outpatient YULIET ADORNO [facility] RT HAND TREMOR
--- NOTE | 2020-02-29 17:12 | NUR ---
TALKED UPDATE GIVEN
[2020-02-29 17:16] LABS: BASOPHILS % (AUTO) 0 % (0-10); EOSINOPHILS # (AUTO) 0.3 10^3/uL (0.0-0.3); EOSINOPHILS % (AUTO) 4 % (0-10); HEMATOCRIT 30 % (40-54); HEMOGLOBIN 9.8 G/DL (13.3-17.7); LYMPHOCYTES # (AUTO) 0.9 X 10^3 (1.0-4.0); LYMPHOCYTES % (AUTO) 13 % (12-44); MEAN CORPUSCULAR HEMOGLOBIN 31 PG (25-34); MEAN CORPUSCULAR HGB CONC 32 G/DL (32-36); MEAN CORPUSCULAR VOLUME 95 FL (80-99); MEAN PLATELET VOLUME 9.4 FL (7.4-10.4); MONOCYTES % (AUTO) 15 % (0-12); NEUTROPHILS # (AUTO) 4.6 X 10^3 (1.8-7.8); NEUTROPHILS % (AUTO) 67 % (42-75); PLATELET COUNT 349 10^3/uL (130-400); RED CELL DISTRIBUTION WIDTH 13.5 % (10.0-14.5); WHITE BLOOD COUNT 6.9 10^3/uL (4.3-11.0)
[2020-02-29 17:27] LABS: ALBUMIN 3.5 GM/DL (3.2-4.5)
[2020-02-29 17:28] LABS: CHLORIDE 99 MMOL/L (98-107); SODIUM 141 MMOL/L (135-145)
[2020-02-29 17:29] LABS: CALCIUM 8.8 MG/DL (8.5-10.1)
[2020-02-29 17:30] LABS: GLUCOSE 89 MG/DL (70-105)
[2020-02-29 17:31] LABS: CARBON DIOXIDE 31 MMOL/L (21-32)
[2020-02-29 17:32] LABS: BILIRUBIN,TOTAL 0.4 MG/DL (0.1-1.0)
[2020-02-29 17:33] LABS: ALKALINE PHOSPHATASE 50 U/L (40-136)
[2020-02-29 17:34] LABS: CREATININE SERUM 0.89 MG/DL (0.60-1.30); GFR ESTIMATED > 60
[2020-02-29 17:35] LABS: BUN/CREATININE RATIO 21
[2020-02-29 17:36] LABS: ALANINE AMINOTRANSFERASE 24 U/L (0-55)
[2020-02-29] MEDS ORDERED: OXYC5TAB96 (17:45)
[2020-02-29] MEDS ORDERED: ATOR20TA66 PO (17:45)
[2020-02-29] MEDS ORDERED: ASPI-586 PO (17:45)
[2020-02-29] MEDS ORDERED: FUROSEMIDE 20 MG (LASIX) TAB PO ONE (18:00)
--- NOTE | 2020-02-29 18:09 | NUR ---
CALLED AND GAVE UPDATE TO THAT WE WILL ADMIT.
--- OUTSIDE RECORDS SUMMARY | 2020-02-29 18:15 | XMS REPORT | Continuity of Care Document ---
[...] 04/20/2018 14:52:00 04/20/2018 23:59:5 9 CLS Outpatient [id number] 01/24/2019 12:55:00 019 23:59:59 CLS Outpatient YULIET ADORNO [facility] RT HAND TREMOR
--- NOTE | 2020-02-29 18:25 | Diagnostic Imaging Report ---
INDICATION: Fluid retention, nine days post lumbar spine surgery. TECHNIQUE: Single-view chest at 06:18 p.m. CORRELATION STUDY: None. FINDINGS: Heart size is borderline enlarged. Vasculature is overall slightly prominent. Lung wong are hyperinflated. There is an irregular, somewhat oval-shaped 4.7 cm density in the left mid lung field. IMPRESSION: 1. Borderline heart size and vasculature. 2. Abnormal oval-shaped density in the left mid lung field. This finding is nonspecific, however, could potentially reflect a loculated fluid collection, pseudomass, or infiltrate. Pulmonary mass however is not excluded. Short-term follow-up imaging is recommended for reassessment. Dictated by: Dictated on workstation # [id number]
--- NOTE | 2020-02-29 18:35 | Diagnostic Imaging Report ---
INDICATION: Fluid retention, lumbar surgery nine days ago. TECHNIQUE: Single supine view of the abdomen 06:19 p.m. CORRELATION STUDY: None. FINDINGS: Scattered gas-filled loops of bowel are present. There is stool throughout the colon, moderate in severity including to the level of the rectum. No large fecal impaction or high-degree bowel obstruction. Posterior fusion hardware with transpedicular screws and interconnecting rods at L2, L4, and L5 levels. IMPRESSION: 1. Mild gas-filled loops of bowel may be reflective of mild ileus with moderate-severity fecal retention. Dictated by: Dictated on workstation # [id number]
[2020-02-29 18:42] LABS: BILIRUBIN,URINE NEGATIVE (NEGATIVE); CLARITY,URINE CLEAR; COLOR,URINE YELLOW; GLUCOSE, URINE (UA) NEGATIVE (NEGATIVE); KETONES,URINE NEGATIVE (NEGATIVE); LEUKOCYTE ESTERASE ,URINE NEGATIVE (NEGATIVE); NITRITE,URINE NEGATIVE (NEGATIVE); PH,URINE 6.5 (5-9); PROTEIN,URINE NEGATIVE (NEGATIVE)
[2020-02-29 18:47] LABS: BACTERIA,URINE TRACE /HPF; SQUAMOUS EPITHELIAL CELL,UR RARE /HPF; WBC,URINE RARE /HPF
--- NOTE | 2020-02-29 19:00 | NUR ---
SMITH AMIN admitted to room 409-1, with an admitting diagnosis of DEBILITY AND WEAKNESS , on 02/29/20 from ER via W/C, accompanied by STAFF.SMITH AMIN introduced to surroundings, call light, bed controls, phone, TV, temperature control, lights, meal times, smoking policy, visitor policy, side rail policy, bathrooms and showers. Patient Rights given to patient in the handbook.SMITH AMIN verbalizes understanding that [facility] is not responsible for the loss or damage to any personal effects or valuables that are kept in the patients posession during their hospitalization. The following Patient Care Plans were discussed with the PT: Discharge Planning, PAIN CONTROL,TESTS AND PROCEDURES, and PT/OT. SMITH AMIN verbalizes understanding of Interdisciplinary Patient Education. Patient and/or family were informed about the Rapid Response Team and its purpose.
[2020-02-29] MEDS ORDERED: CATHETER FLUSH 10 ML SYR IV PRN (19:15)
[2020-02-29 19:30] VITALS: BP 123/65
[2020-02-29] MEDS ORDERED: ACETAMINOPHEN 500 MG TAB (TYLENOL) PO PRN (19:45)
[2020-02-29] MEDS: ENOXAPARIN 40 MG/0.4 ML (LOVENOX) SYR SQ SCH (21:21)
[2020-02-29] MEDS: HYDROcodone/APAP 5 MG/325 MG (LORTAB) TAB PO PRN (21:22)
[2020-02-29] MEDS: CATHETER FLUSH 10 ML SYR IV SCH (21:23)
[2020-02-29 23:51] VITALS: BP 110/66
[2020-03-01 04:55] VITALS: BP 125/69
[2020-03-01] MEDS: CATHETER FLUSH 10 ML SYR IV SCH ×3 (05:21→19:59)
[2020-03-01] MEDS: HYDROcodone/APAP 5 MG/325 MG (LORTAB) TAB PO PRN (05:21)
[2020-03-01 08:00] VITALS: BP 144/68
--- NOTE | 2020-03-01 10:13 | Occupational Therapy Eval ---
OT Evaluation-General/PLF Medical Diagnosis Admission Date Feb 29, 2020 at 17:58 Medical Diagnosis: s/p L4-5 fusion; fluid retention Onset Date: Feb 20, 2020 Therapy Diagnosis Therapy Diagnosis: decreased ADL status Precautions Precautions/Isolations: Fall Prevention, Standard Precautions Referral Physician: Abdullahi Lucia MD Referral Reason: Activity Tolerance, Self Care, Evaluation/Treatment, Strengthening/ROM Medical History Additional Medical History see nursing. Current History Pt had L4-5 fusion 02/19, went home and was completing ADLs with assist from . Pt states fluid retention and weight gain of 20 lbs. Reviewed History: Yes Social History Home: Single Level Current Living Status: Spouse Steps Inside Home: 0 ADL-Prior Level of Function SCALE: Activities may be completed with or without assistive devices. 7-Aicwjqgjia-hdkkcnd completes the activity by him/herself with no assistance from a helper. 5-Set-up or Clean-up Assistance-helper sets up or cleans up; patient completes activity. [place] assists only prior to or following the activity. 4-Supervision or Touching Assistance-helper provides verbal cues and/or touching/steadying and/or contact guard assistance as patient completes activity. Assistance may be provided throughout the activity or intermittently. 3-Partial/Moderate Assistance-helper does LESS THAN HALF the effort. [place] lifts, holds or supports trunk or limbs, but provides less than half the effort. 2-Substantial/Maximal Assistance-helper does MORE THAN HALF the effort. [place] lifts or holds trunk or limbs and provides more than half the effort. 5-Iyduzyexz-ozljpa does ALL the effort. Patient does none of the effort to complete the activity. Or, the assistance of 2 or more helpers is required for the patient to complete the activity. If activity was not attempted, code reason: 7-Patient Refused. 9-Not Applicable-not attempted and the patient did not perform the activity before the current illness, exacerbation or injury. 10-Not Attempted due to Environmental Limitations-(lack of equipment, weather restraints, etc.). 88-Not Attempted due to Medical Conditions or Safety Concerns. ADL PLOF Comments Pt's assists with LE dressing/ bathing. States no BM since surgery (excluding today, first BM), so did not complete toilet tx at home. Self Care: Needed Some Help Functional Cognition: Independent DME/Equipment: Grab Bars, Shower DME/Equipment Comments "some" of the hip kit, though assists. OT Current Status Subjective Pt seen post-PT. Pt sitting EOB, good static sitting balance, R hand essential tremor. Pt alert/ oriented. present through session. States 2/10 pain in back/ R hip. Mental Status/Objective Patient Orientation: Normal For Age Current Glasses/Contacts: Yes Hand Dominance: Right Upper Extremity ROM WFL BUE Upper Extremity Coordination WFL L R essential tremors Upper Extremity Sensation WFL BUE Upper Extremity Strength WFL BUE, though did not test due to back precautions. ADL-Treatment Eating (QC): 6 (Pt states IND with eating, denies use of adaptive utensiles though states knowledge of them. Tremors do not impact eating per pt.) Shower/Bathe Self (QC): 3 (mod A for LE per .) Lower Body Dressing (QC): 3 (mod A for LE per .) On/Off Footwear (QC): 1 (TD from ) Toileting Hygiene (QC): 7 (states had BM, states desire to go later though denies at this time.) Other Treatments Pt seen EOB. Able to state all back precautions without cues. Pt states R hip/ back pain, though states R hip pain was present prior to surgery. Pt educated on LB AE (hip kit), pt states was educated on prior to surgery and has "some" though doesn't use as assists. Will make goals around this. Pt sit to stand EOB with use of walker. Ambulates to chair with SBA. Pt sits with good control. Slight pitting edema dorsum of feet. Pt denies BM at this time. Educated on OT role and continuation to improve fx IND through sessions. Pt agrees, all needs met, call light and phone within reach, BLE's elevated with pillow and leg rest. 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 2=Patient will verbalize/demonstrate understanding of assistive devices/modifications for ADL. 3=Patient will improve strength/tolerance for activity to enable patient to perform ADL's. OT Education/Plan Problem List/Assessment Assessment: Decreased Activ Tolerance, Edema, Impaired I ADL's, Impaired Self- Care Skills Discharge Recommendations Plan/Recommendations: Continue POC Therapy Discharge Recommendati: Home & Family Equpiment Recommendations-D/C: Rails on Tub/Shower, Hip Kit Treatment Plan/Plan of Care Treatment,Training & Education: Yes Patient would benefit from OT for education, treatment and training to promote independence in ADL's, mobility, safety and/or upper extremity function for ADL's. Plan of Care: ADL Retraining, Caregiver Training, Functional Mobility, UE Funct Exercise/Act Treatment Duration: Mar 08, 2020 Frequency: 5 times per week Estimated Hrs Per Day: .25 hour per day Agreement: Yes Rehab Potential: Good Time/GCodes Start Time: 09:50 Stop Time: 10:01 Total Time Billed (hr/min): 11 Billed Treatment Time RYAN Fairchild (11) DYLAN RODGERS OTR Mar 01, 2020 10:13
--- NOTE | 2020-03-01 10:42 | NUR ---
PT REQUESTING PAIN MEDICATION. LORTAB NOT DUE YET, HE HAD MEDICATION ONLY 5 HOURS AGO AND HE CAN ONLY HAVE MED Q8H PRN PAIN. PT REFUSED TYLENOL THAT WAS OFFERED BY THIS RN. HE REPORTED THAT TYLENOL DOES NOT HELP HIS PAIN. PT ASKED WHY HE COULD NOT HAVE SAME ORDER FOR OXYCODONE 5 MG Q3H PAIN, WHICH WAS RX THAT SURGEON FROM WROTE. NURSE PHOTO CHECKER AND ASSEMBLER EDUCATED PY THAT DR PORRAS WOULD HAVE TO ORDER MEDICATION FOR OUR FACILITY. THIS RN INFORMED PT THAT I WAS TEXTING DR PORRAS WITH ALL OF THE INFORMATION. STILL AWAITING DR PORRASS REPLY.
--- NOTE | 2020-03-01 11:07 | Physical Therapy Evaluation ---
PT Evaluation-General Medical Diagnosis Admission Date Feb 29, 2020 at 17:58 Medical Diagnosis: s/p L4-5 fusion; fluid retention Onset Date: Feb 20, 2020 Therapy Diagnosis Therapy Diagnosis: decreased mobility Precautions Precautions/Isolations: Fall Prevention, Standard Precautions Weight Bear Status Right Lower Extremity: Right Full Weight Bearing Left Lower Extremity: Left Full Weight Bearing Referral Physician: Abdullahi Lucia MD Medical History Reviewed History: Yes Social History Home: Single Level Current Living Status: Spouse PT Steps Into Home: 2 PT Steps Inside Home: 0 Prior Prior Level of Function SCALE: Activities may be completed with or without assistive devices. 6-Yjpborhsye-bqekezm completes the activity by him/herself with no assistance from a helper. 5-Set-up or Clean-up Assistance-helper sets up or cleans up; patient completes activity. [place] assists only prior to or following the activity. 4-Supervision or Touching Assistance-helper provides verbal cues and/or touching/steadying and/or contact guard assistance as patient completes activity. Assistance may be provided throughout the activity or intermittently. 3-Partial/Moderate Assistance-helper does LESS THAN HALF the effort. [place] l ifts, holds or supports trunk or limbs, but provides less than half the effort. 2-Substantial/Maximal Assistance-helper does MORE THAN HALF the effort. [place] lifts or holds trunk or limbs and provides more than half the effort. 1-Vahzebdct-vbelwa does ALL the effort. Patient does none of the effort to complete the activity. Or, the assistance of 2 or more helpers is required for t he patient to complete the activity. If activity was not attempted, code reason: 7-Patient Refused. 9-Not Applicable-not attempted and the patient did not perform the activity before the current illness, exacerbation or injury. 10-Not Attempted due to Environmental Limitations-(lack of equipment, weather restraints, etc.). 88-Not Attempted due to Medical Conditions or Safety Concerns. Bed Mobility: 6 Transfers (B,C,W/C): 6 Gait: 6 Stairs: 6 PT Evaluation-Current Subjective Pt. c/o low back pain and R hip pain. No objective pain rating given. Pt/Family Goals home with spouse Objective Patient Orientation: Person, Place, Time, Situation ROM/Strength ROM Upper Extremities See OT ROM Lower Extremities WFL Strength Upper Extremities See OT Strength Lower Extremities Grossly 4/5 Integumentary/Posture Integumentary bandage covering lumbar incision, no drainage Bowel Incontinence: No Bladder Incontinence: No Posture unremarkable Neuromuscular (Tone, Coordination, Reflexes) unremarkable Sensory Vision: Wears Glasses Hearing: Functional Hand Dominance: Right Sensation Right Upper Extremit: Intact Sensation Left Upper Extremity: Intact Sensation Right Lower Extremit: Intact Sensation Left Lower Extremity: Intact Transfers Lying to Sitting/Side of Bed(Q: 4 Sit to Stand (QC): 4 Gait Does the Patient Walk?: Yes Mode of Locomotion: Walk Anticipated Mode of Locomotion: Walk Walk 10 feet (QC): 4 Walk 50 ft with 2 Turns(QC): 4 Distance: 100 ft Gait Assistive Device: FWW Comments/Gait Description slow speed and narrow NISHANT Balance Sitting Static: Good Sitting Dynamic: Fair Standing Static: Fair Standing Dynamic: Fair Assessment/Needs Pt. is an 80 y.o. male with decreased mobility following lumbar fusion and fluid retention. Pt. currently needs CGA for ambulation and use of FWW for steadiness. Pt. would benefit from skilled PT to improve mobility and (I) for return home. Rehab Potential: Good PT Assisted Goals Belt Loop Maker Goals PT Assisted Goals Time Frame: Mar 08, 2020 Sit to Lying (QC): 6 Lying-Sitting on Side/Bed(QC): 6 Sit to Stand (QC): 6 Chair/Rde-ix-Kxfan Xfer(QC): 6 Walk 10 feet (QC): 6 Walk 50ft with 2 Turns (QC): 6 Walk 150 ft (QC): 6 PT Plan Problem List Problem List: Activity Tolerance, Functional Strength, Safety, Balance, Gait, Transfer, Bed Mobility, ROM Treatment/Plan Treatment Plan: Continue Plan of Care Treatment Plan: Bed Mobility, Education, Functional Activity [place], Functional Strength, Gait, Safety, Therapeutic Exercise, Transfers Treatment Duration: Mar 08, 2020 Frequency: 6 times per week Estimated Hrs Per Day: .25 hour per day Patient and/or Family Agrees t: Yes Time/GCodes Time In: 935 Time Out: 948 Total Billed Treatment Time: 13 Total Billed Treatment 1VINAY 13' ONUR BANEGAS PT Mar 01, 2020 11:07
[2020-03-01 12:00] VITALS: BP 124/69
--- NOTE | 2020-03-01 12:06 | History & Physical ---
History of Present Illness History of Present Illness Reason for visit/HPI 80 yo male admitted observation for progressive weakness and debility. He had L4L5 fusion on February 20, 2020 at and he said he did well for 2 days but since then he has declined. Also noted was swelling in his legs. Denies shortness of breath or trouble breathing. He feels better today- he did get 20mEq lasix in ER yesterday. BNP was not elevated. He was able to walk in the hallway with a walker today. He is a little upset this AM that he did not get his srrrbhqge0di IR 1-3 tablets i6rvogc; I checked his discharge paperwork and he was suppose to change to 1-2 tablets [id number]- so I have put that in his MAR. Date of Admission Feb 29, 2020 at 17:58 Date Seen by a Provider: Mar 01, 2020 Time Seen by a Provider: 11:30 I consulted on this patient on 03/01/20 12:01 Attending Physician Abdullahi Porras MD Admitting Physician Courtney Chiu MD Consult Allergies and Home Medications Allergies Coded Allergies: Sulfa (Sulfonamide Antibiotics) (Verified Allergy, Unknown, 02/29/20) teriparatide (Verified Allergy, Unknown, 02/29/20) Uncoded Allergies: CARBIDOPA-LEVODOPA (Allergy, Unknown, 02/29/20) Home Medications Aspirin 81 Mg Tablet.dr, 81 MG PO DAILY, (Reported) Atorvastatin Calcium 20 Mg Tablet, 20 MG PO DAILY, (Reported) Patient Home Medication List Home Medication List Reviewed: Yes Past Yfawtyn-Ofdesk-Qdvmgt Hx Patient Social History Alcohol Use: Denies Use Recreational Drug Use: No Smoking Status: Never a Smoker Recent Foreign Travel: No Contact w/other who traveled: No Recent Infectious Disease Expo: No Surgeries Yes Orthopedic Respiratory No Cardiovascular Yes (STENT) High Cholesterol Musculoskeletal No Endocrine History of Endocrine Disorders: No HEENT History of HEENT Disorders: No Cancer No Psychosocial History of Psychiatric Problem: No Review of Systems Review of Systems General: No Chills, No Night Sweats HEENT: No Head Aches, No Visual Changes Pulmonary: No Dyspnea, No Cough Cardiovascular: No: Chest Pain, Palpitations Gastrointestinal: No: Nausea, Vomiting Genitourinary: No Dysuria Musculoskeletal: back pain Neurological: Weakness Physical Exam Vital Signs Vital Signs - First Documented 02/29/20 16:41 Temp 36.9 Pulse 77 Resp 18 B/P (MAP) 128/68 (88) Pulse Ox 99 O2 Delivery Room Air Capillary Refill : Less Than 3 Seconds Height, Weight, BMI Height: '" Weight: lbs. oz. kg; 25.93 BMI Method: General Appearance: No Apparent Distress HEENT: PERRL/EOMI Neck: Non Tender, Supple Respiratory: Chest Non Tender, Lungs Clear, Normal Breath Sounds, No Accessory Muscle Use, No Respiratory Distress Cardiovascular: Regular Rate, Rhythm Gastrointestinal: Normal Bowel Sounds, Non Tender, Soft Rectal: Deferred Extremity: Normal Range of Motion, Non Tender, Pedal Edema (2+ pitting edema to mid calf) Neurologic/Psychiatric: Alert, Oriented x3 Assessment/Plan Assessment/Plan Admission Dx debility weakness unsteady on feet back pain s/p L4L5 fusion lower extremity edema. Admission Status: Observation Assessment and Plan 02/29/20- admitted lasix 20mg given- 03/01/20- will start lasix 40mg daily with 20mEq potassium- to get some more of the fluid off his legs- and see if this gets him back to ambulating with little difficulty and back home tomorrow. Continue PT for ambulation assessment. - oxycodone per [facility] orders for his back pain. Dispo: will reassess in AM and plan on discharging to home if he is improved. Pt declined placement in SNU. Could consider HH. Problems: (1) Debility (2) Back pain at L4-L5 level Assessment & Plan: s/p L4L5 fusion 02/20/20 (3) Lower extremity edema Assessment & Plan: suspect it is a consequence of the back surgery (4) Weakness Clinical Quality Measures DVT/VTE Risk/Contraindication: Risk Factor Score Per Nursin RFS Level Per Nursing on Admit: 4+=Very High ABDULLAHI PORRAS MD Mar 01, 2020 12:06
[2020-03-01] MEDS: FUROSEMIDE 40 MG (LASIX) TAB PO SCH (12:41)
[2020-03-01] MEDS: KCL 10 MEQ TAB (MICRO K) PO SCH ×2 (12:42→19:58)
[2020-03-01] MEDS ORDERED: ACETAMINOPHEN 650 MG SUPP (TYLENOL) PR PRN (14:00)
[2020-03-01 16:27] VITALS: BP 112/63
[2020-03-01] MEDS: ENOXAPARIN 40 MG/0.4 ML (LOVENOX) SYR SQ SCH (20:02)
[2020-03-01 23:03] VITALS: BP 168/79
[2020-03-02] MEDS: CATHETER FLUSH 10 ML SYR IV SCH (05:09)
--- NOTE | 2020-03-02 05:49 | NUR ---
PT IS COMPLAINING OF URINARY FREQUENCY AND URGENCY. UPON ASSESSMENT PTs TEMPERATURE NOTED TO BE 38.1 C (100.[address] F). DR[address] GRAMAJO CONTACTED AND NOTIFIED OF CHANGES. ORDER RECEIVED FOR UA AND TYLENOL 650MG Q6 HOURS PRN. Addendum: 03/03/20 at 0247 by PIA STANLEY RN WRONG PT
[2020-03-02] MEDS: FUROSEMIDE 40 MG (LASIX) TAB PO SCH (08:03)
[2020-03-02] MEDS: KCL 10 MEQ TAB (MICRO K) PO SCH (08:03)
[2020-03-02 09:00] VITALS: BP 136/61
[2020-03-02] MEDS ORDERED: ASPIRIN E.C. 81 MG (ECOTRIN) TAB PO SCH (09:00)
[2020-03-02] MEDS ORDERED: FURO40TA4 PO (11:26)
[2020-03-02] MEDS ORDERED: POTA10TA6 PO (11:26)
--- NOTE | 2020-03-02 11:28 | Discharge Summary ---
Discharge Summary Hospital Course Was the Problem List Reviewed?: Yes Problems/Dx: (1) Debility Status: Acute (2) Lower extremity edema Status: Acute (3) Weakness Status: Acute (4) Back pain at L4-L5 level Status: Chronic Hospital Course Date of Admission: Feb 29, 2020 at 17:58 Admission Diagnosis : Problems: (1) Debility (2) Back pain at L4-L5 level Assessment & Plan: s/p L4L5 fusion 02/20/20 (3) Lower extremity edema Assessment & Plan: suspect it is a consequence of the back surgery (4) Weakness Family Physician/Provider: Courtney Chiu MD Date of Discharge: 03/02/20 Discharge Diagnosis: Problems: (1) Debility (2) Back pain at L4-L5 level Assessment & Plan: s/p L4L5 fusion 02/20/20 (3) Lower extremity edema Assessment & Plan: suspect it is a consequence of the back surgery (4) Weakness Hospital Course: 80 yo male admitted observation for progressive weakness and debility. He had L4L5 fusion on February 20, 2020 at and he said he did well for 2 days but since then he has declined. Also noted was swelling in his legs. Denies shortness of breath or trouble breathing. He feels better today- he did get 20mEq lasix in ER yesterday. BNP was not elevated. He was able to walk in the hallway with a walker today. He is a little upset this AM that he did not get his zqlgheusp4da IR 1-3 tablets e9jqflm; I checked his discharge paperwork and he was suppose to change to 1-2 tablets g2qydew- so I have put that in his MAR. He took lasix to help with the lower extremity edema which improved a little bit. Patient was deemed stable for discharge 03/02/20 as he reports he was feeling better- strength improved. He was walking with 4WW to the restroom. He will continue lasix and potassium for 4 more days then stop it. If edema in his legs does not continue to improve- recommend cardiology referral and an ECHOcardiogram. Labs and Pending Lab Test: Home Meds Active Furosemide 40 Mg Tablet 40 Mg PO DAILY you may stop after 4 days if swelling in legs is improved. Klor-Con 10 (Potassium Chloride) 10 Meq Tablet.er 10 Meq PO BID Reported Aspir 81 (Aspirin) 81 Mg Tablet. 81 Mg PO DAILY Atorvastatin Calcium 20 Mg Tablet 20 Mg PO DAILY Oxycodone IR (Oxycodone HCl) 5 Mg Tablet Assessment/Pt Instructions -Take furosemide and potassium daily - you may stop after 4 days if swelling in legs is improved. -Continue to keep legs elevated when sitting/lying down. -Walking as discussed at least 5minutes 5x daily. -Keep follow up with back surgeon. -Call Dr. Chiu office for a follow appointment in 1-2 weeks, if needed. Discharge Planning: <30 minutes discharge planning Discharge Instructions Discharge Diet: Eat Small Frequent Meals Activity as Tolerated: Yes Pneumonia Vaccine Order Indica: Yes Discharge Physical Examination Vital Signs Vital Signs Date Time Temp Pulse Resp B/P (MAP) Pulse Ox O2 Delivery O2 Flow Rate FiO2 03/01/20 23:03 36.7 77 20 168/79 (108) 97 Room Air General Appearance: No Apparent Distress HEENT: PERRL/EOMI Respiratory: Chest Non Tender, Lungs Clear, Normal Breath Sounds Cardiovascular: Regular Rate, Rhythm Gastrointestinal: Normal Bowel Sounds, Soft Extremity: Pedal Edema Skin: Warm/Dry Neurologic/Psychiatric: Alert, Oriented x3 Allergies: Coded Allergies: Sulfa (Sulfonamide Antibiotics) (Verified Allergy, Unknown, 02/29/20) teriparatide (Verified Allergy, Unknown, 02/29/20) Uncoded Allergies: CARBIDOPA-LEVODOPA (Allergy, Unknown, 02/29/20) Discharge Summary Date of Admission Feb 29, 2020 at 17:58 Date of Discharge March 02 2020 Discharge Diagnosis (1) Debility Status: Acute (2) Back pain at L4-L5 level Status: Chronic Assessment & Plan: s/p L4L5 fusion 02/20/20 (3) Lower extremity edema Status: Acute Assessment & Plan: suspect it is a consequence of the back surgery (4) Weakness Status: Acute Clinical Quality Measures DVT/VTE Risk/Contraindication: Risk Factor Score Per Nursin RFS Level Per Nursing on Admit: 4+=Very High TRISTAN PORRAS MD Mar 02, 2020 11:28
== END 2020-03-02 11:45 | disposition home or self-care (01) ==
LOC: EDUNIT# 16:37 → ER 16:40 → 4TH 17:58
PROVIDERS: ADMIT Family Medicine; ATTEND Family Medicine
DX: R53.81 Other malaise (principal); R60.0 Localized edema; E78.00 Pure hypercholesterolemia, unspecified; M54.9 Dorsalgia, unspecified; G89.29 Other chronic pain; Z79.82 Long term (current) use of aspirin; Z79.899 Other long term (current) drug therapy; Z88.2 Allergy status to sulfonamides; Z88.8 Allergy status to other drugs, medicaments and biological substances; Z98.1 Arthrodesis status; Z95.5 Presence of coronary angioplasty implant and graft
CPT/HCPCS: 36415; 71045; 74018; 80053; 81000; 83880; 84484; 85025; 93005; G0378

== ENCOUNTER 2020-03-25 13:00 | Outpatient (RCR) | payer MEDICARE, OTHER ==
[~2020-03-25 13:00] MED LIST: ASPI-586 PO; ATOR20TA66 PO; FURO40TA4 PO; OXYC5TAB96; POTA10TA6 PO
== END 2020-05-01 15:21 | disposition home or self-care (01) ==
PROVIDERS: ATTEND Nurse Practitioner Family
DX: R60.0 Localized edema (principal)

== ENCOUNTER → 2022-04-08 | Outpatient (CLI) | payer MEDICARE, OTHER ==
[~2022-04-08] VITALS: Ht 177.8 cm; Wt 70.6 kg
[~2022-04-08] MED LIST changes: +BUPR100T15 PO; +CARB1TAB44 PO; +CETI10CA PO; +OXC5T; -OXYC5TAB96; +POTA-160 PO; -POTA10TA6 PO
== END ==
LOC: PREOP 05:34
PROVIDERS: ATTEND Otolaryngology Otolaryngology/Facial Plastic Surgery
DX: Z01.818 Encounter for other preprocedural examination (principal); L98.9 Disorder of the skin and subcutaneous tissue, unspecified

== ENCOUNTER → 2022-04-12 | Outpatient (CLI) | payer MEDICARE, OTHER ==
--- NOTE | 2022-04-12 17:28 | Diagnostic Imaging Report ---
INDICATION: Cough. COMPARISON: 02/29/2020 FINDINGS: Frontal and lateral radiographic views of the chest were obtained and demonstrate persistent masslike opacity within the left perihilar region. It measures 5.9 x 5.6 cm. Lungs are otherwise clear. There is no large effusion or pneumothorax. Cardiac silhouette and pulmonary vasculature are within normal limits. IMPRESSION: 1. Persistent masslike opacity in the left perihilar region. Correlation with CT is advised. Dictated by: Dictated on workstation # [id number]
== END ==
LOC: RAD 16:12
PROVIDERS: ATTEND Nurse Practitioner Family
DX: R05.9 Cough, unspecified (principal)
CPT/HCPCS: 71046

== ENCOUNTER → 2022-04-13 | Outpatient (CLI) | payer MEDICARE, OTHER ==
[~2022-04-13] MED LIST changes: +ACHD5005 PO; +CATHETER FLUSH 10 ML SYR IV PRN; +CEPH500T PO; +HOLD METFORMIN - RECEIVED CONTRAST 20 ML VIAL IV SCH; +IOHEXOL 350 MG/ML 100 ML (OMNIPAQUE 350) VIAL IV ONE; +NS 100 ML (IVPB) BAG IV ONE
[2022-04-13 15:02] LABS: HEMATOCRIT 40 % (40-54); MEAN CORPUSCULAR HEMOGLOBIN 31 pg (25-34); MEAN CORPUSCULAR HGB CONC 32 g/dL (32-36); MEAN CORPUSCULAR VOLUME 95 fL (80-99); MEAN PLATELET VOLUME 9.4 fL (9.0-12.2); PLATELET COUNT 282 10^3/uL (130-400); WHITE BLOOD COUNT 8.6 10^3/uL (4.3-11.0)
[2022-04-13 15:29] LABS: ALBUMIN 3.5 GM/DL (3.2-4.5); BILIRUBIN,TOTAL 0.4 MG/DL (0.1-1.0); CALCIUM 8.5 MG/DL (8.5-10.1); CREATININE SERUM 0.95 MG/DL (0.60-1.30); POTASSIUM 4.5 MMOL/L (3.6-5.0); TOTAL PROTEIN 5.6 GM/DL (6.4-8.2)
--- NOTE | 2022-04-13 16:59 | Diagnostic Imaging Report ---
EXAMINATION: CT chest with intravenous contrast. TECHNIQUE: Multiple contiguous axial images were obtained through the chest after the uneventful administration of intravenous contrast. All CT scans use one or more of the following dose optimizing techniques: Automated exposure control, MA and/or KvP adjustment based on patient size and exam type or iterative reconstruction. HISTORY: Lung mass. COMPARISON: None available. FINDINGS: There is no edema or pneumonia. No pleural effusion. No pneumothorax. There is a 4.8 x 3.8 cm mass centered in the left lower lobe with a small amount of post-obstructive atelectasis or pneumonia. It crosses the fissure into the left upper lobe. There is no axillary or supraclavicular lymphadenopathy. There is no mediastinal lymphadenopathy. Heart size is normal. There are severe coronary artery calcifications. No pericardial effusion. Aorta is normal in caliber. Limited views of the upper abdomen demonstrate there is a 10 mm low attenuating right mariola-liver lesion concerning for metastatic disease. There are no suspicious osseous lesions. IMPRESSION: 1. Large mass centered in the left lower lobe crossing the fissure into the left upper lobe, highly concerning for primary lung cancer. 2. Suspicious liver lesion concerning for metastatic disease. Dictated by: Dictated on workstation # [id number]
== END ==
LOC: RAD 15:30
PROVIDERS: ATTEND Nurse Practitioner Family
DX: R91.8 Other nonspecific abnormal finding of lung field (principal)
CPT/HCPCS: 36415; 71260; 80053; 85027

== ENCOUNTER 2022-04-15 06:50 | Day surgery (SDC) | payer MEDICARE, OTHER ==
[~2022-04-15] VITALS: Ht 177.8 cm; Wt 70.6 kg
[2022-04-15] VITALS (10 sets, daily range): BP systolic 141–166; BP diastolic 72–92
[~2022-04-15 06:50] MED LIST changes: -ACHD5005 PO; -CEPH500T PO
[2022-04-15] MEDS ORDERED: LACTATED RINGERS 1,000 ML IV PRN (07:15)
[2022-04-15] MEDS ORDERED: LIDOCAINE/EPI 2% 1:200,00 (XYLOCAINE) 20 ML VIAL ONE (08:20)
[2022-04-15] MEDS ORDERED: ONDANSETRON 4 MG/2 ML (SDV) Z0FRAN ONE (08:49)
[2022-04-15] MEDS ORDERED: LIDOCAINE PF 2% 5 ML (XYLOCAINE) VIAL ONE (08:49)
[2022-04-15] MEDS ORDERED: fentaNYL INJ 100 MCG/2 ML AMP ONE (08:49)
[2022-04-15] MEDS ORDERED: proPOfol 200 MG/20 ML (DIPRIVAN) VIAL IV ONE (08:49)
[2022-04-15] MEDS ORDERED: MUPIROCIN 2% OINT 22 GM (BACTROBAN) TUBE ONE (10:17)
[2022-04-15] MEDS ORDERED: SEVOFLURANE (ULTANE) 15 ML INHAL SOLN ONE (10:19)
--- NOTE | 2022-04-15 10:22 | Progress Note-Pre Operative ---
Pre-Operative Progress Note Date of Available H&P: Apr 15, 2022 Date H&P Reviewed: Apr 15, 2022 Time H&P Reviewed: 09:30 History & Physical: H&P Reviewed, Patient Examed, No changes noted Changes from last HP none Pre-Operative Diagnosis: Multiple Scalp Lesions-three IGNACIO JEFFERY MD Apr 15, 2022 10:22
--- NOTE | 2022-04-15 10:23 | Progress Note-Post Operative ---
Post-Operative Progess Note Surgeon (s)/Tie Sawyer (s) Surgeon IGNACIO JEFFERY MD Tie Sawyer n/a Pre-Operative Diagnosis Multiple Scalp Lesions-three Post-Operative Diagnosis same Post-Op Procedure Note Date of Procedure: Apr 15, 2022 Name of Procedure Performed: Excisoin of Multiple Scalp Lesion with Intermediate Repair Description & Findings Description and Findings: n/a Anesthesia Type lma Estimated Blood Loss minimal Packing none. Specimen(s) collected/removed midline post scalp-hypertreohic ak left posterior scalp-basal derrick lwith clear margins midline anterior scalp-path pending IGNACIO JEFFERY MD Apr 15, 2022 10:23
[2022-04-15] MEDS ORDERED: ACETAMINOPHEN 325 MG TABLET PO PRN (10:30)
[2022-04-15] MEDS ORDERED: HYDROcodone/APAP 5 MG/325 MG (LORTAB) TAB PO PRN (10:30)
[2022-04-15] MEDS ORDERED: morphine INJ 10 MG/ML 1ML (SYR OR VIAL) ONE (10:37)
[2022-04-15] MEDS ORDERED: morphine INJ 10 MG/ML 1ML (SYR OR VIAL) IVP ONE (10:45)
[2022-04-15] MEDS ORDERED: ONDANSETRON 4 MG/2 ML (SDV) Z0FRAN IVP PRN (10:45)
--- NOTE | 2022-04-15 11:24 | Anesthesia-General Post-Op ---
General Patient Condition Mental Status/LOC: Same as Preop Cardiovascular: Satisfactory Nausea/Vomiting: Absent Respiratory: Satisfactory Pain: Controlled Complications: Absent Post Op Complications Complications None Follow Up Care/Instructions Patient Instructions None needed. Anesthesia/Patient Condition Patient Condition Patient is doing well, no complaints, stable vital signs, no apparent adverse anesthesia problems. No complications reported per nursing. ДМИТРИЙ RODRIGUES DO Apr 15, 2022 11:24
[2022-04-15] MEDS ORDERED: ACHD5005 PO (11:35)
[2022-04-15] MEDS ORDERED: CEPH500T PO (11:35)
== END 2022-04-15 12:15 | disposition home or self-care (01) ==
LOC: SDC 06:50
PROVIDERS: ATTEND Otolaryngology Otolaryngology/Facial Plastic Surgery
DX: C44.41 Basal cell carcinoma of skin of scalp and neck (principal); C44.42 Squamous cell carcinoma of skin of scalp and neck
CPT/HCPCS: 87081; 93005

== ENCOUNTER → 2022-04-15 | Outpatient (CLI) | payer MEDICARE, OTHER ==
[~2022-04-15] MED LIST changes: -CATHETER FLUSH 10 ML SYR IV PRN; -HOLD METFORMIN - RECEIVED CONTRAST 20 ML VIAL IV SCH; -IOHEXOL 350 MG/ML 100 ML (OMNIPAQUE 350) VIAL IV ONE; -NS 100 ML (IVPB) BAG IV ONE
[2022-04-15] MEDS: IOHEXOL 350 MG/ML 100 ML (OMNIPAQUE 350) VIAL IV ONE (12:57)
[2022-04-15] MEDS: CATHETER FLUSH 10 ML SYR IV PRN (12:57)
[2022-04-15] MEDS: NS 100 ML (IVPB) BAG IV ONE (12:57)
--- NOTE | 2022-04-15 13:27 | Diagnostic Imaging Report ---
INDICATION: Lung mass, metastatic workup. TECHNIQUE: Multiple contiguous axial images were obtained through the abdomen and pelvis after administration of intravenous contrast. Auto Exposure Controls were utilized during the CT exam to meet ALARA standards for radiation dose reduction. All CT scans use one or more of the following dose optimizing techniques: Automated exposure control, MA and/or KvP adjustment based on patient size and exam type or iterative reconstruction. COMPARISON: There is no prior CT abdomen and pelvis for comparison. Comparison made to lower-most cuts or chest CT of 04/13/2022. FINDINGS: Visualized portions of the lung bases demonstrate an ill-defined density in the left lower lobe, see description on chest CT. There is no pleural fluid or free intraperitoneal air. The patient has had previous lumbar fusion. The liver shows a small cyst in the right lobe posteriorly and superiorly. There is mild prominence of the intrahepatic bile ducts; patient has had previous cholecystectomy. Common bile duct is mildly prominent. Spleen, adrenals, and pancreas appear normal. Kidneys bilaterally show multiple small cysts as well as a prominent cyst in the superior pole of the left kidney measuring about 4.8 cm. There is no retroperitoneal mass or adenopathy. There is no ascites or abnormal fluid collection. Visualized bowel loops show no sign of obstruction. There are uncomplicated colonic diverticula. There is prostatic enlargement. IMPRESSION: No overt evidence of metastatic disease in the abdomen or pelvis. There is mild dilatation of the biliary tree with post-cholecystectomy change. There is a small cyst in the right lobe of the liver as well as multiple renal cysts. There is no overt bowel obstruction. There is prostatic enlargement. Dictated by: Dictated on workstation # [id number]
== END ==
LOC: RAD 13:00
PROVIDERS: ATTEND Family Medicine
DX: C22.7 Other specified carcinomas of liver (principal); R91.8 Other nonspecific abnormal finding of lung field; N40.0 Benign prostatic hyperplasia without lower urinary tract symptoms; Z90.49 Acquired absence of other specified parts of digestive tract
CPT/HCPCS: 74177

== ENCOUNTER 2022-04-21 09:26 | Outpatient (CLI) | payer MEDICARE, OTHER ==
[2022-04-21] VITALS (12 sets, daily range): BP systolic 128–162; BP diastolic 64–85
[~2022-04-21] VITALS: Ht 177.8 cm; Wt 68.6 kg
[~2022-04-21 09:26] MED LIST changes: +ACHD5005 PO; +CEPH500T PO
[2022-04-21 10:06] LABS: HEMATOCRIT 42 % (40-54); HEMOGLOBIN 13.9 g/dL (13.3-17.7); MEAN CORPUSCULAR HEMOGLOBIN 31 pg (25-34); MEAN CORPUSCULAR HGB CONC 33 g/dL (32-36); MEAN CORPUSCULAR VOLUME 94 fL (80-99); MEAN PLATELET VOLUME 9.6 fL (9.0-12.2); PLATELET COUNT 259 10^3/uL (130-400); WHITE BLOOD COUNT 10.1 10^3/uL (4.3-11.0)
[2022-04-21 10:17] LABS: PROTHROMBIN TIME PATIENT 13.3 SEC (12.2-14.7)
[2022-04-21] MEDS ORDERED: ASPI-1238 PO (10:35)
[2022-04-21] MEDS ORDERED: TRAM50TA3 PO (10:35)
[2022-04-21] MEDS ORDERED: NS IV 1000 ML 1,000 ML IV STA (10:47)
[2022-04-21] MEDS ORDERED: fentaNYL INJ 100 MCG/2 ML AMP IVP ONE (11:00)
[2022-04-21] MEDS ORDERED: LIDOCAINE 1% INJ 50 ML (XYLOCAINE) VIAL IJ ONE (11:00)
[2022-04-21] MEDS ORDERED: MIDAZOLAM 2 MG/2 ML (VERSED) VIAL IVP ONE (11:00)
[2022-04-21] MEDS ORDERED: HYDROcodone/APAP 5 MG/325 MG (LORTAB) TAB PO PRN (12:45)
--- NOTE | 2022-04-21 14:08 | Diagnostic Imaging Report ---
INDICATION: Left lung biopsy. FINDINGS: The mass-like density in the left perihilar region is again noted. No pneumothorax is identified status post left lung biopsy. The right lung contains a calcified granuloma. There is no effusion. IMPRESSION: No evidence of pneumothorax status post left lung biopsy. Dictated by: Dictated on workstation # [id number]
--- NOTE | 2022-04-21 14:38 | Pre-Op Note & Conscious Sedat ---
Pre-Operative Progress Note Date of Available H&P: Apr 21, 2022 Date H&P Reviewed: Apr 21, 2022 Time H&P Reviewed: 10:00 Pre-Op Diagnosis: lung mass Conscious Sedation Pre-Proced Time 10:00 ASA Score 2 For ASA 3 and 4: Consider anesthesia and medical clearance. Also, for patients with a history of failed moderate sedation consider anesthesia. Airway Lungs Heart ASA score ASA 1: a normal healthy patient ASA 2: a patient with a mild systemic disease (mid diabetes, controlled hypertension, obesity ASA 3: a patient with a severe systemic disease that limits activity (angina, COPD, prior Myocardial infarction) ASA 4: a patient with an incapacitating disease that is a constant threat to life (CHF, renal failure) ASA 5: a moribund patient not expected to survive 24 hrs. (ruptured aneurysm) ASA 6: a declared brain- patient whose organs are being harvested. For emergent operations, add the letter E after the classification Mallampati Classification Grade 2 Sedation Plan Analgesia, Amnesia, Plan communicated to team members, Discussed options with patient/fam, Discussed risks with patient/fam The patient is an appropriate candidate to undergo the planned procedure, sedation, and anesthesia. The patient immediately re-assessed prior to indication. KENNA LAI MD Apr 21, 2022 14:38
--- NOTE | 2022-04-21 15:56 | Diagnostic Imaging Report ---
INDICATION: Left lung mass. Patient presents for CT-guided biopsy. PROCEDURE: Patient was brought to the CT suite and placed on the table in the left side down decubitus position. Axial imaging through the chest was performed to evaluate appropriate entry site. The left posterior thorax was prepped and draped in the usual sterile fashion. The procedure was performed utilizing conscious sedation with radiology nursing and constipation monitoring. Patient was given a total of 50 mg of fentanyl intravenously and 1 mg of Versed intravenously. Total procedure time was 10 minutes. 18-gauge coaxial Temno needle was advanced from a posterior approach and placed into the lesion in the left lower lobe. Three core biopsies were obtained. A blood patch was injected during needle removal. Hemostasis was obtained. Follow-up imaging shows no complicating features. Patient tolerated the procedure well and left the department in stable condition. IMPRESSION: Successful CT-guided left lung biopsy, utilizing conscious sedation. Pathology results are currently pending. TECHNIQUE: All CT scans use one or more of the following dose optimizing techniques: automated exposure control, MA and/or KvP adjustment based on patient size and exam type or iterative reconstruction. Dictated by: Dictated on workstation # [id number]
== END 2022-04-21 14:33 | disposition home or self-care (01) ==
LOC: SDC 09:26
PROVIDERS: ATTEND Family Medicine
DX: R91.8 Other nonspecific abnormal finding of lung field (principal)
CPT/HCPCS: 36415; 71045; 77012; 85027; 85610; 85730; 99156

== ENCOUNTER 2022-05-12 09:38 | Outpatient (CLI) | payer MEDICARE, OTHER ==
[~2022-05-12] VITALS: Wt 68.6 kg
[2022-05-12] VITALS (12 sets, daily range): BP systolic 122–159; BP diastolic 72–83
[~2022-05-12 09:38] MED LIST changes: +ASPI-1238 PO; +TRAM50TA3 PO
[2022-05-12 10:04] LABS: HEMATOCRIT 40 % (40-54); MEAN CORPUSCULAR HEMOGLOBIN 31 pg (25-34); MEAN CORPUSCULAR HGB CONC 33 g/dL (32-36); MEAN CORPUSCULAR VOLUME 94 fL (80-99); MEAN PLATELET VOLUME 9.6 fL (9.0-12.2); PLATELET COUNT 299 10^3/uL (130-400); WHITE BLOOD COUNT 8.6 10^3/uL (4.3-11.0)
[2022-05-12 10:25] LABS: PROTHROMBIN TIME PATIENT 13.5 SEC (12.2-14.7)
[2022-05-12] MEDS ORDERED: NS IV 1000 ML 1,000 ML IV STA (11:18)
[2022-05-12] MEDS ORDERED: LIDOCAINE 1% INJ 50 ML (XYLOCAINE) VIAL IJ ONE (11:30)
[2022-05-12] MEDS ORDERED: MIDAZOLAM 2 MG/2 ML (VERSED) VIAL IVP ONE (11:30)
[2022-05-12] MEDS ORDERED: fentaNYL INJ 100 MCG/2 ML AMP IVP ONE (11:30)
[2022-05-12] MEDS ORDERED: HYDROcodone/APAP 5 MG/325 MG (LORTAB) TAB PO PRN (13:00)
--- NOTE | 2022-05-12 13:06 | Pre-Op Note & Conscious Sedat ---
Pre-Operative Progress Note Date of Available H&P: May 12, 2022 Date H&P Reviewed: May 12, 2022 Time H&P Reviewed: 10:00 Pre-Op Diagnosis: liver mass Conscious Sedation Pre-Proced Time 10:00 ASA Score 2 For ASA 3 and 4: Consider anesthesia and medical clearance. Also, for patients with a history of failed moderate sedation consider anesthesia. Airway Lungs Heart ASA score ASA 1: a normal healthy patient ASA 2: a patient with a mild systemic disease (mid diabetes, controlled hypertension, obesity ASA 3: a patient with a severe systemic disease that limits activity (angina, COPD, prior Myocardial infarction) ASA 4: a patient with an incapacitating disease that is a constant threat to life (CHF, renal failure) ASA 5: a moribund patient not expected to survive 24 hrs. (ruptured aneurysm) ASA 6: a declared brain- patient whose organs are being harvested. For emergent operations, add the letter E after the classification Mallampati Classification Grade 2 Sedation Plan Analgesia, Amnesia, Plan communicated to team members, Discussed options with patient/fam, Discussed risks with patient/fam The patient is an appropriate candidate to undergo the planned procedure, sedation, and anesthesia. The patient immediately re-assessed prior to indication. KENNA LAI MD May 12, 2022 13:06
--- NOTE | 2022-05-12 13:24 | Diagnostic Imaging Report ---
INDICATION: Liver mass. Patient presents for CT-guided biopsy. TECHNIQUE: All CT scans use one or more of the following dose optimizing techniques: automated exposure control, MA and/or KvP adjustment based on patient size and exam type or iterative reconstruction. Patient was brought to the CT suite and placed on table in the left side down decubitus position. Axial imaging through the abdomen was performed to evaluate appropriate entry site. Procedure was performed utilizing conscious sedation with radiology nursing and constant patient monitoring. Patient was given a total of 50 mg of fentanyl intravenously and 0.5 mg Versed intravenously. Total procedure time approximately 12 minutes. Anterior right upper abdomen was prepped and draped in usual sterile fashion. Small amount of 1% lidocaine was utilized for local anesthesia. 18-gauge coaxial needle was advanced and placed with its tip along the margin of the height of the low-density lesion in the inferior right lobe the liver. 4 core biopsies were obtained. Blood patch was injected during needle removal. Followup imaging shows no complicating features. Patient tolerated the procedure well and left the department in stable condition. IMPRESSION: Successful CT-guided biopsy of the solid nodule in the right lobe the liver, utilizing conscious sedation. Pathology results are currently pending. Dictated by: Dictated on workstation # [id number]
== END 2022-05-12 14:35 | disposition home or self-care (01) ==
LOC: SDC 09:38
PROVIDERS: ATTEND Internal Medicine Hematology & Oncology
DX: K76.89 Other specified diseases of liver (principal); R79.1 Abnormal coagulation profile
CPT/HCPCS: 36415; 77012; 85027; 85610; 85730; 99156

== ENCOUNTER 2022-05-19 10:02 | Outpatient (CLI) | payer MEDICARE, OTHER ==
[~2022-05-19] VITALS: Ht 177.8 cm; Wt 68.0 kg
[2022-05-19] MEDS ORDERED: FOLI1TAB33 PO (12:58)
[2022-05-20] MEDS ORDERED: HYDR-3817 PO (12:40)
== END 2022-05-21 12:39 | disposition home or self-care (01) ==
LOC: PREOP 10:02
PROVIDERS: ATTEND Surgery
DX: Z01.818 Encounter for other preprocedural examination (principal); C34.90 Malignant neoplasm of unspecified part of unspecified bronchus or lung

== ENCOUNTER 2022-05-20 10:59 | Day surgery (SDC) | payer MEDICARE, OTHER ==
[~2022-05-20] VITALS: Ht 177.8 cm; Wt 70.5 kg
[~2022-05-20 10:59] MED LIST changes: +FOLI1TAB33 PO
[2022-05-20] MEDS ORDERED: LIDOCAINE/EPI 2% 1:200,00 (XYLOCAINE) 20 ML VIAL ONE ×2 (11:01→11:03)
[2022-05-20] MEDS ORDERED: 0.9% SODIUM CHLORIDE PF INJ 20 ML VIAL ONE (11:01)
[2022-05-20] MEDS ORDERED: HEParin (CENTRAL IV FLUSH) 500 UNIT/5 ML SYR ONE (11:01)
[2022-05-20] MEDS ORDERED: PROPOFOL INJECTION 50 ML IV ONE (11:18)
[2022-05-20 11:40] VITALS: BP 157/67
[2022-05-20] MEDS ORDERED: LACTATED RINGERS 1,000 ML IV PRN (11:45)
[2022-05-20] MEDS ORDERED: ceFAZolin INJECTION 1,000 MG VIAL IV ONE (11:45)
[2022-05-20] MEDS ORDERED: ceFAZolin INJECTION 2,000 MG ONE (12:25)
[2022-05-20] MEDS ORDERED: MIDAZOLAM 2 MG/2 ML (VERSED) VIAL ONE (12:34)
--- NOTE | 2022-05-20 12:39 | Progress Note-Pre Operative ---
Pre-Operative Progress Note Date of Available H&P: May 20, 2022 Date H&P Reviewed: May 20, 2022 Time H&P Reviewed: 11:00 History & Physical: No changes noted Pre-Operative Diagnosis: metastatic lung cancer ARLIN GRAMAJO MD May 20, 2022 12:39
[2022-05-20] MEDS ORDERED: HYDR-3817 PO (12:40)
--- NOTE | 2022-05-20 12:41 | Discharge Inst-Surgical ---
D/C Lap Instructions-AVILA New, Converted, or Re-Newed RX: RX on Chart Follow Up PRN ok to access and use port at any time Activity as tolerated No driving for 24 hours No driving while on pain medications Incentive Spirometry use every 2 hours while awake Regular Diet Symptoms to Report: Fever over 101 degree F, Nausea/Vomiting Infection Signs and Symptoms to report: Increased redness, Foul odor of wound, Increased drainage Bathing instructions: May shower Operative Area Clean/Dry; Keep incision clean/dry If any problems/questions: Contact your physician or go to Emergency Room ARLIN GRAMAJO MD May 20, 2022 12:41
[2022-05-20] MEDS ORDERED: morphine INJ 10 MG/ML 1ML (SYR OR VIAL) IVP PRN ×2 (12:45)
[2022-05-20] MEDS ORDERED: ACETAMINOPHEN 325 MG TABLET PO PRN (12:45)
[2022-05-20] MEDS ORDERED: ONDANSETRON 4 MG/2 ML (SDV) Z0FRAN IVP PRN ×2 (12:45→13:30)
[2022-05-20] MEDS ORDERED: HYDROcodone/APAP 5 MG/325 MG (LORTAB) TAB PO ONE (12:45)
[2022-05-20] MEDS ORDERED: HEParin (CENTRAL IV FLUSH) 500 UNIT/5 ML SYR IV ONE (13:00)
[2022-05-20] MEDS ORDERED: LIDOCAINE/EPI 2% 1:200,00 (XYLOCAINE) 10 ML VIAL INJ ONE (13:00)
[2022-05-20] MEDS ORDERED: 0.9% SODIUM CHLORIDE PF INJ 10 ML VIAL IV ONE (13:00)
--- NOTE | 2022-05-20 13:12 | Progress Note-Post Operative ---
Post-Operative Progess Note Surgeon (s)/Thermo Processor (s) Surgeon ARLIN RGAMAJO MD Thermo Processor: sophia reich PRICE CHECKER Pre-Operative Diagnosis metastatic lung cancer Post-Operative Diagnosis same Procedure & Operative Findings Date of Procedure 05/20/22 Procedure Performed/Findings placement left subclavian groshong catheter under flouroscopy. Anesthesia Type mac with local Estimated Blood Loss Estimated blood loss (mL): minimal Specimens/Packing Specimens Removed none ARLIN GRAMAJO MD May 20, 2022 13:12
[2022-05-20 13:20] VITALS: BP 129/66
--- NOTE | 2022-05-20 13:25 | Anesthesia-General Post-Op ---
MAC Patient Condition Mental Status/LOC: Same as Preop Cardiovascular: Satisfactory Nausea/Vomiting: Absent Respiratory: Satisfactory Pain: Controlled Complications: Absent Post Op Complications Complications None Follow Up Care/Instructions Patient Instructions None needed. Anesthesiology Discharge Order Discharge Order Patient is doing well, no complaints, stable vital signs, no apparent adverse anesthesia problems. No complications reported per nursing. DEMETRIUS HALEY CRNA May 20, 2022 13:25
[2022-05-20 13:30] VITALS: BP 140/84
[2022-05-20] MEDS ORDERED: HYDROmorphone 2 MG/ML VIAL (DILAUDID) IV ONE (13:30)
[2022-05-20 13:40] VITALS: BP 136/71
[2022-05-20 13:45] VITALS: BP_SYST 113; BP_SYST 138; BP_DIAS 62; BP_DIAS 71
--- NOTE | 2022-05-20 14:06 | Diagnostic Imaging Report ---
INDICATION: Status post Groshong catheter placement. COMPARISON: 04/21/2022 FINDINGS: Single frontal radiographic view of the chest was obtained and demonstrates interval placement of left-sided subclavian Port-A-Cath, tip of which terminates in the mid SVC. There is no pneumothorax or large effusion on either side. Large masslike opacity is again identified within the left hilar region. This corresponds to lesion seen on previous CT PET. Cardiac silhouette and pulmonary vasculature are within normal limits. IMPRESSION: 1. New left-sided subclavian central venous catheter with tip in the mid SVC. 2. No pneumothorax. 3. Redemonstration of a left hilar mass. Dictated by: Dictated on workstation # [id number]
[2022-05-20 14:17] VITALS: BP 147/72
--- NOTE | 2022-05-20 14:21 | Diagnostic Imaging Report ---
INDICATION: Groshong catheter placement. Fluoroscopic guidance. COMPARISON: None Total fluoroscopy time: 6 seconds Total number of fluoroscopic images saved: 1 FINDINGS: Single intraoperative image intensifier view of the upper chest was obtained during catheter placement. Images provided show left-sided subclavian approach. Central tip of the catheter is not well visualized. Evaluation for pneumothorax is suboptimal given fluoroscopic modality. IMPRESSION: 1. Fluoroscopic guidance provided during left-sided Groshong catheter placement. Dictated by: Dictated on workstation # [id number]
--- NOTE | 2022-05-20 20:19 | OPERATIVE REPORT ---
DATE OF SERVICE: 05/20/2022 ATTENDING PRIMARY CARE PHYSICIAN: Courtney Chiu MD PREOPERATIVE DIAGNOSIS: Metastatic lung cancer. POSTOPERATIVE DIAGNOSIS: Metastatic lung cancer. PROCEDURE: Placement of left subclavian Groshong implantable catheter under fluoroscopy. SURGEON: Arlin Francois MD. COURSEWARE DEVELOPER: Nitish King APRN. ANESTHESIA: Monitored anesthesia care with local. ESTIMATED BLOOD LOSS: Minimal. FINDINGS: Catheter tip at superior vena caval -- right atrial junction. DISPOSITION: The patient tolerated the procedure well. INDICATIONS: The patient is an 82-year-old male who had developed some cough recently. He was seen by his primary mill roller, underwent a chest x-ray and a lesion noted in the lung. He then underwent further workup, which did show a lesion consistent with a neoplasm of the lung as well as a lesion of the liver and these were biopsied and consistent with lung adenocarcinoma. He is otherwise doing fine and has seen oncology with the plan to proceed with immunotherapy and for which he will require a Groshong implantable catheter for IV administration as well as frequent blood draws. DESCRIPTION OF PROCEDURE: The chest and neck were prepped and draped in standard surgical fashion. 1% lidocaine with epinephrine was then used to anesthetize the left subclavian region. The left subclavian vein was then cannulated withdrawing of venous blood and the guidewire was then inserted under fluoroscopy. The cannulated needle removed and a skin incision made using 15 blade. A tract was then created using the venous dilator and the sheath. The dilator and guidewire were then removed and the Groshong catheter was placed through the sheath until the catheter tip was at the superior vena caval -- right atrial junction and then the sheath removed. The inner wire within the catheter was then removed and the catheter cut down to size and port placed onto the catheter. The chest reservoir was then created by extending the skin incision laterally. Plane between the subcutaneous fat and anterior pectoralis fascia was then created using blunt dissection as well as electrocautery with visualization of good hemostasis. The port was then placed into the reservoir and sutured to the anterior pectoralis fascia using interrupted 3-0 Vicryl sutures. Subcutaneous tissue was then reapproximated with the same suture in an interrupted manner and the skin was closed using 4-0 Monocryl running subcuticular suture. Wound was then cleaned and covered with Dermabond. The port was accessed with a non-coring Aaron needle with venous blood drawn out and heparinized saline pushed in without any resistance. The patient tolerated the procedure well. We will get a post-procedure chest x-ray once confirmation of placement of the port may be accessed and used at any time. Job ID: [id number] DocumentID: [id number] Dictated Date: 05/20/2022 13:22:13 Balance Wheel Facer Date: 05/20/2022 20:18:41 Dictated By: ARLIN FRANCOIS MD
== END 2022-05-20 14:25 | disposition home or self-care (01) ==
LOC: SDC 10:59
PROVIDERS: ATTEND Surgery
DX: C34.32 Malignant neoplasm of lower lobe, left bronchus or lung (principal); C78.7 Secondary malignant neoplasm of liver and intrahepatic bile duct; Z85.820 Personal history of malignant melanoma of skin; Z85.46 Personal history of malignant neoplasm of prostate; Z95.5 Presence of coronary angioplasty implant and graft; Z79.82 Long term (current) use of aspirin
CPT/HCPCS: 36561; 71045; 76000; 87081; C1788

== ENCOUNTER 2022-12-31 09:56 | Outpatient (RCR) | payer MEDICARE, OTHER ==
[~2022-12-31 09:56] MED LIST changes: +HYDR-3817 PO
== END 2023-01-02 | disposition home or self-care (01) ==
LOC: ONC 09:56
PROVIDERS: ATTEND Radiology Radiation Oncology
DX: Z51.0 Encounter for antineoplastic radiation therapy (principal); C79.31 Secondary malignant neoplasm of brain; C78.7 Secondary malignant neoplasm of liver and intrahepatic bile duct; C79.71 Secondary malignant neoplasm of right adrenal gland; C79.89 Secondary malignant neoplasm of other specified sites; C79.51 Secondary malignant neoplasm of bone; C34.90 Malignant neoplasm of unspecified part of unspecified bronchus or lung; C61 Malignant neoplasm of prostate; Z85.820 Personal history of malignant melanoma of skin; Z85.828 Personal history of other malignant neoplasm of skin
CPT/HCPCS: 77300; 77301; 77334; 77338; 77386; 99205

== ENCOUNTER 2023-01-13 09:55 | Outpatient (RCR) | payer MEDICARE, OTHER | END 2023-02-02 | disposition still patient (30) | LOC: ONC 09:55 | PROVIDERS: ATTEND Radiology Radiation Oncology | DX: Z51.0 Encounter for antineoplastic radiation therapy (principal); C80.1 Malignant (primary) neoplasm, unspecified; C79.31 Secondary malignant neoplasm of brain | CPT/HCPCS: 77386 ×2; 77470; G0463; 77336 ==

== ENCOUNTER 2023-02-15 10:50 | Emergency (ER) | payer MEDICARE, OTHER ==
[~2023-02-15] VITALS: Ht 177 cm; Wt 78.0 kg
[2023-02-15] MEDS ORDERED: NS IV 1000 ML 1,000 ML IV SCH (11:15)
--- NOTE | 2023-02-15 11:16 | ED General ---
General Chief Complaint: General Problems/Pain Stated Complaint: WEAKNESS Nursing Triage Note: PT ARRIVED PER EMS, PT CO OF INCREASED WEAKNESS AND CONFUSION. STARTED ON TUESDAY. PT HAD FALL TUESDAY. PT UNABLE TO STAND TODAY. PT IS ALERT AT THIS X. PT HAS HX LUNG CA AND IS CURRENTLY GETTING CHEM. PT ALSO HAS A BLOOD CLOT IN HIS L LOWER EXT. PT IS VERY PALE. PT HAS ACCESSED PORT IN L CHEST WALL BY EMS. NS INFUSING AT THIS X. PT LOWER EXT VERY EDMATOUS Source of Information: Patient, Family Exam Limitations: No Limitations History of Present Illness Date Seen by Provider: Feb 15, 2023 Time Seen by Provider: 10:58 Initial Comments 82-year-old male presents to the ER via EMS with complaints of generalized weakness. He states that today he could not get up, that is why he called the ambulance. He has a history of stage IV lung cancer, last chemo treatment was 2 weeks ago. He is no longer going to be receiving IV chemo. He is supposed to s ee his oncologist, Dr. Daniel, tomorrow to be started on oral treatment. His reports that he has been eating well, but not been drinking well. He has had new incontinence starting approximately 2 weeks ago. thinks that the incontinence has gotten worse since he has been weak, but he reports that he cannot feel when he has to go to the bathroom. He reports chronic back issues, denies any change in this. No pain in his spine with palpation. Denies numbness or tingling in his legs. Patient currently on 2 L of oxygen, patient does not wear oxygen at home. He denies fevers, chest pain, shortness of air, abdominal pain, nausea, vomiting, diarrhea. Other past medical history includes Parkinson's and a DVT of the left lower leg which he is currently being treated for. Allergies and Home Medications Allergies Coded Allergies: Sulfa (Sulfonamide Antibiotics) (Verified Allergy, Unknown, 04/09/22) Patient Home Medication List Home Medication List Reviewed: Yes Acyclovir (Acyclovir) 400 Mg Tablet, 400 MG PO TID, (Reported) Entered as Reported by: ARACELIS QUIJANO on 02/15/23 1504 Last Action: Reviewed Apixaban (Eliquis) 2.5 Mg Tablet, 2.5 MG PO BID, (Reported) Entered as Reported by: ARACELIS QUIJANO on 02/15/23 1504 Last Action: Reviewed Atorvastatin Calcium (Atorvastatin Calcium) 20 Mg Tablet, 20 MG PO DAILY, (Reported) Entered as Reported by: ELAYNE MOREL on 02/29/20 1745 Last Action: Reviewed Carbidopa/Levodopa (Carbidopa-Levodopa 25-100 Tab) 25 Mg-100 Mg Tablet, 3 EA PO TID, (Reported) Entered as Reported by: ARACELIS QUIJANO on 02/15/23 1504 Last Action: Reviewed Cetirizine HCl (Cetirizine HCl) 10 Mg Tablet, 10 MG PO DAILY PRN for ALLERGY SYMPTOMS, (Reported) Entered as Reported by: ARACELIS QUIJANO on 02/15/23 1505 Last Action: Reviewed Folic Acid (Folic Acid) 1 Mg Tablet, 1 MG PO DAILY, (Reported) Entered as Reported by: JACEK MARCOS on 05/19/22 1258 Last Action: Reviewed Hydrocodone/Acetaminophen (Hydrocodone-Acetamin 5-325 mg) 5 Mg-325 Mg Tablet, 1 EA PO Q4H PRN for PAIN-MODERATE (5-7), (Reported) Entered as Reported by: ARACELIS QUIJANO on 02/15/23 150 Last Action: Reviewed Discontinued Medications Aspirin (Aspirin EC) 81 Mg Tablet.dr, 81 MG PO DAILY, (Reported) Discontinued Reason: No Longer Taking Entered as Reported by: DANIELLA ORTIZ on 04/21/22 1035 Last Action: Discontinued Carbidopa/Levodopa (Carbidopa-Levo 25-100 mg Odt) 25 Mg-100 Mg Tab.rapdis, 3 TAB PO TID, (Reported) Discontinued Reason: No Longer Taking Entered as Reported by: JERRICA WAITE on 04/09/22 1442 Last Action: Discontinued Hydrocodone/Acetaminophen (Hydrocodone-Acetamin 7.5-325) 7.5 Mg-325 Mg Tablet, 1 EACH PO Q4H Discontinued Reason: No Longer Taking Prescribed by: ARLIN GRAMAJO on 05/20/22 1240 Last Action: Discontinued Review of Systems Review of Systems Constitutional: see HPI Past Nqlnafr-Rkmuad-Opkvmo Hx Immunizations Up To Date First/Initial COVID19 Vaccinat: 09/25 Second COVID19 Vaccination Pa: 10/26 Third COVID19 Vaccination Date: 05/26 & 03/26 Seasonal Allergies Seasonal Allergies: Yes Past Medical History Surgeries: Yes (L4&5 FUSION,LAMINECTOMY X2,SINUS REPAIR,CATARACT, L2&L4, 3 STENTS,) Abdominal, Gallbladder, Orthopedic, Tonsillectomy, Vasectomy Respiratory: No (ALLERGIES CAUSING COUGH) Currently Using CPAP: No Currently Using BIPAP: No Cardiac: Yes (STENT) High Cholesterol Neurological: No Parkinson's Disease Genitourinary: No Gastrointestinal: No Musculoskeletal: Yes Chronic Back Pain Endocrine: No HEENT: No Cataract Loss of Vision: Denies Cancer: Yes Prostate, Liver, Lung Did You Recieve Any Treatments: No Psychosocial: No Integumentary: Yes (RECENT DC) Blood Disorders: No Physical Exam Vital Signs Vital Signs - First Documented 02/15/23 10:50 Temp 37.2 Pulse 87 Resp 18 B/P (MAP) 143/62 (89) Pulse Ox 99 O2 Delivery Nasal Cannula O2 Flow Rate 2.00 Capillary Refill : Less Than 3 Seconds Height, Weight, BMI Height: '" Weight: lbs. oz. kg; 24.00 BMI Method: General Appearance: No Apparent Distress, WD/WN Eyes: Bilateral Eye Other (edema of upper eyelids) Neck: Non Tender, Supple Respiratory: Lungs Clear, Normal Breath Sounds, No Accessory Muscle Use, No Respiratory Distress Cardiovascular: Regular Rate, Rhythm Back: Normal Inspection, No Vertebral Tenderness Extremity: Swelling (Left lower extremity) Neurologic/Psychiatric: Alert, Normal Mood/Affect Skin: Normal Color, Warm/Dry Focused Exam Lactate Level 02/15/23 11:28: Lactic Acid Level 1.35 Lactic Acid Level Laboratory Tests Test 02/15/23 11:28 Lactic Acid Level 1.35 MMOL/L (0.50-2.00) Progress/Results/Core Measures Suspected Sepsis SIRS Temperature: Pulse: 87 Respiratory Rate: 18 Laboratory Tests 02/15/23 10:50: White Blood Count 8.6 Blood Pressure 143 /62 Mean: 89 02/15/23 11:28: Lactic Acid Level 1.35 Laboratory Tests 02/15/23 10:50: Creatinine 0.84, INR Comment 1.7H, Platelet Count 275, Total Bilirubin 0.5 Results/Orders Lab Results Laboratory Tests Test 02/15/23 10:50 02/15/23 11:27 02/15/23 11:28 Range/Units White Blood Count 8.6 4.3-11.0 10^3/uL Red Blood Count 3.04 L 4.30-5.52 10^6/uL Hemoglobin 9.2 L 13.3-17.7 g/dL Hematocrit 28 L 40-54 % Mean Corpuscular Volume 93 80-99 fL Mean Corpuscular Hemoglobin 30 25-34 pg Mean Corpuscular Hemoglobin Concent 33 32-36 g/dL Red Cell Distribution Width 16.5 H 10.0-14.5 % Platelet Count 275 130-400 10^3/uL Mean Platelet Volume 11.5 9.0-12.2 fL Immature Granulocyte % (Auto) 4 % Neutrophils (%) (Auto) 77 H 42-75 % Lymphocytes (%) (Auto) 6 L 12-44 % Monocytes (%) (Auto) 12 0-12 % Eosinophils (%) (Auto) 0 0-10 % Basophils (%) (Auto) 1 0-10 % Neutrophils # (Auto) 6.6 1.8-7.8 10^3/uL Lymphocytes # (Auto) 0.5 L 1.0-4.0 10^3/uL Monocytes # (Auto) 1.0 0.0-1.0 10^3/uL Eosinophils # (Auto) 0.0 0.0-0.3 10^3/uL Basophils # (Auto) 0.0 0.0-0.1 10^3/uL Immature Granulocyte # (Auto) 0.3 H 0.0-0.1 10^3/uL Prothrombin Time 20.4 H 12.2-14.7 SEC INR Comment 1.7 H 0.8-1.4 Activated Partial Thromboplast Time 49 H 24-35 SEC Sodium Level 140 135-145 MMOL/L Potassium Level 4.4 3.6-5.0 MMOL/L Chloride Level 103 98-107 MMOL/L Carbon Dioxide Level 27 21-32 MMOL/L Anion Gap 10 5-14 MMOL/L Blood Urea Nitrogen 33 H 7-18 MG/DL Creatinine 0.84 0.60-1.30 MG/DL Estimat Glomerular Filtration Rate 87 BUN/Creatinine Ratio 39 Glucose Level 93 70-105 MG/DL Calcium Level 8.2 L 8.5-10.1 MG/DL Corrected Calcium 9.6 8.5-10.1 MG/DL Total Bilirubin 0.5 0.1-1.0 MG/DL Aspartate Amino Transf (AST/SGOT) 38 H 5-34 U/L Alanine Aminotransferase (ALT/SGPT) 21 0-55 U/L Alkaline Phosphatase 71 40-136 U/L B-Type Natriuretic Peptide 175.8 H <100.0 PG/ML Total Protein 4.2 L 6.4-8.2 GM/DL Albumin 2.3 L 3.2-4.5 GM/DL Urine Color YELLOW Urine Clarity CLOUDY Urine pH 5.5 5-9 Urine Specific [place] 1.020 1.016-1.022 Urine Protein 1+ H NEGATIVE Urine Glucose (UA) NEGATIVE NEGATIVE Urine Ketones TRACE H NEGATIVE Urine Nitrite NEGATIVE NEGATIVE Urine Bilirubin NEGATIVE NEGATIVE Urine Urobilinogen 0.2 < = 1.0 MG/DL Urine Leukocyte Esterase NEGATIVE NEGATIVE Urine RBC (Auto) NEGATIVE NEGATIVE Urine RBC NONE /HPF Urine WBC 0-2 /HPF Urine Squamous Epithelial Cells RARE /HPF Urine Crystals NONE /LPF Urine Bacteria FEW H /HPF Urine Casts PRESENT /LPF Urine Hyaline Casts 0-2 H /LPF Urine Mucus SMALL H /LPF Urine Culture Indicated CULTURE PENDING Lactic Acid Level 1.35 0.50-2.00 MMOL/L My Orders Orders - FELA ODEN APRN Cbc With Automated Diff (02/15/23 11:07) Comprehensive Metabolic Panel (02/15/23 11:07) Blood Culture (02/15/23 11:07) Sputum Culture (02/15/23 11:07) Urinalysis (02/15/23 11:07) Urine Culture (02/15/23 11:07) Protime With Inr (02/15/23 11:07) Partial Thromboplastin Time (02/15/23 11:07) Chest 1 View, Ap/Pa Only (02/15/23 11:07) Ed Iv/Invasive Line Start (02/15/23 11:07) O2 (02/15/23 11:07) Remove Rings In Anticipation O (02/15/23 11:07) Lactic Acid Analyzer (02/15/23 11:07) Ns Iv 1000 Ml (Sodium Chloride 0.9%) (02/15/23 11:15) Straight Cath For Spec.-Adult (02/15/23 11:18) Ed Admission (Communication) (02/15/23 13:09) General/Regular (02/15/23 Lunch) Vital Signs/I&O 02/15/23 02/15/23 02/15/23 10:50 10:50 13:40 Temp 37.2 Pulse 87 80 Resp 18 36 B/P (MAP) 143/62 (89) 135/65 Pulse Ox 99 99 99 O2 Delivery Nasal Cannula O2 Flow Rate 2.00 Capillary Refill : Less Than 3 Seconds Blood Pressure Mean: 89 Progress Note : Progress Note Patient seen and evaluated, resting comfortably in bed, no acute distress. Based on exam and symptoms, septic work-up initiated including CBC, CMP, blood cultures x2, urinalysis, chest x-ray, sputum culture, coags, lactic acid. 1 L of IV fluids ordered at this time. Patient's oncologist office sent over patient summary. 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 He also has malignant melanoma. PET scan from April 2022 showed multiple bony metastasis to the scapula, multiple ribs, bilateral clavicles, multiple dorsal vertebrae, and the right femur. Also noted liver metastasis and adrenal metastasis as well as soft tissue metastasis of the right gluteal region and left thigh. He also had an MRI of the brain in December 2022 which showed bilateral multiple brain metastasis. He had a repeat PET scan in November 2022 which showed disease progression. 1245 Labs reviewed and chest x-ray reviewed. CBC shows decreased hemoglobin 9.2, decreased hematocrit 28. Labs from 01/28/2020 at patient's oncologist shows hemoglobin of 10.2. CMP shows increased BUN 33, normal creatinine, GFR 87. B UN from 01/27/2023 was 43 creatinine at 0.7 and GFR 115. Lactic acid normal 1.35. Coags show elevated PT 20.4, elevated INR 1.7, elevated APTT 49. Urinalysis shows 1+ protein, trace ketones, few bacteria, 0-2 WBCs. No nitrates or leukocytes. Chest x-ray shows stable left perihilar opacity. Diffuse interstitial opacities in both lungs which could be atelectasis, pulmonary edema, or atypical pneumonia. I tried to have patient stand up and ambulate. Patient was able to stand up with assistance, was unable to walk. Patient seemed to have difficulty with standing. I called and spoke with Dr. Pulliam, hospitalist. She agrees to admit patient to the rehab unit. Plan of care discussed with patient and . Patient and are agreeable to plan of care. After patient was admitted, nursing staff attempted to take patient off of oxygen, O2 saturation dropped to 85%. Dr. Pulliam was informed of this. Diagnostic Imaging Diagonstic Imaging: Xray Plain Films/CT/US/NM/MRI: chest Comments [facility]. [place], [place] NAME: SMITH AMIN [facility] REC#: [id number] PT STATUS: REG ER : 1940 PHYSICIAN: FELA ODEN APRN ADMIT DATE: 02/15/23/ER Signed Date of Exam:02/15/23 CHEST 1 VIEW, AP/PA ONLY EXAMINATION: Chest 1 view HISTORY: weakness COMPARISON: 05/20/2022 FINDINGS: Heart size and pulmonary vasculature are normal. There are diffuse interstitial opacities of both lungs. Redemonstrated left perihilar opacification. A left-sided Port-A-Cath is unchanged. No pleural effusion or pneumothorax. Degenerative changes of the thoracic spine. Osseous structures are otherwise intact. IMPRESSION: 1. Stable left perihilar opacity. 2. Diffuse interstitial opacities of both lungs which can be seen with atelectasis, pulmonary edema, or atypical pneumonia. Dictated by: Dictated on workstation # [id number] Dict: 02/15/23 1154 Trans: 02/15/23 1157 [facility] [id number] Interpreted by: SPENCER SANCHEZ DO Electronically signed by: SPENCER SANCHEZ DO 02/15/23 1157 Departure Communication (Admissions) Time/Spoke to Admitting Phy: 12:[address] Pulliam, hospitalist, for admission. See progress note. Impression Primary Impression: Myopathy Disposition: ADMITTED INPATIENT Condition: Stable Admissions Decision to Admit Reason: Admit from ER (General) Decision to Admit/Date: Feb 15, 2023 Time/Decision to Admit Time: 12:55 Departure-Patient Inst. Referrals: JERRY BONILLA MD (PCP/Family) Primary Care Physician FELA ODEN APRN Feb 15, 2023 11:16
[2023-02-15 11:23] LABS: BASOPHILS % (AUTO) 1 % (0-10); EOSINOPHILS % (AUTO) 0 % (0-10); HEMATOCRIT 28 % (40-54); HEMOGLOBIN 9.2 g/dL (13.3-17.7); LYMPHOCYTES # (AUTO) 0.5 10^3/uL (1.0-4.0); LYMPHOCYTES % (AUTO) 6 % (12-44); MEAN CORPUSCULAR HEMOGLOBIN 30 pg (25-34); MEAN CORPUSCULAR HGB CONC 33 g/dL (32-36); MEAN CORPUSCULAR VOLUME 93 fL (80-99); MEAN PLATELET VOLUME 11.5 fL (9.0-12.2); MONOCYTES % (AUTO) 12 % (0-12); NEUTROPHILS # (AUTO) 6.6 10^3/uL (1.8-7.8); NEUTROPHILS % (AUTO) 77 % (42-75); PLATELET COUNT 275 10^3/uL (130-400); WHITE BLOOD COUNT 8.6 10^3/uL (4.3-11.0)
[2023-02-15 11:25] LABS: ALBUMIN 2.3 GM/DL (3.2-4.5)
[2023-02-15 11:26] LABS: POTASSIUM 4.4 MMOL/L (3.6-5.0)
[2023-02-15 11:27] LABS: CALCIUM 8.2 MG/DL (8.5-10.1)
[2023-02-15 11:28] LABS: TOTAL PROTEIN 4.2 GM/DL (6.4-8.2)
[2023-02-15 11:30] LABS: BILIRUBIN,TOTAL 0.5 MG/DL (0.1-1.0)
[2023-02-15 11:32] LABS: BILIRUBIN,URINE NEGATIVE (NEGATIVE); CLARITY,URINE CLOUDY; COLOR,URINE YELLOW; GLUCOSE, URINE (UA) NEGATIVE (NEGATIVE); KETONES,URINE TRACE (NEGATIVE); LEUKOCYTE ESTERASE ,URINE NEGATIVE (NEGATIVE); NITRITE,URINE NEGATIVE (NEGATIVE); PH,URINE 5.5 (5-9); PROTEIN,URINE 1+ (NEGATIVE)
[2023-02-15 11:32] LABS: CREATININE SERUM 0.84 MG/DL (0.60-1.30)
[2023-02-15 11:37] LABS: INR 1.7 (0.8-1.4); PROTHROMBIN TIME PATIENT 20.4 SEC (12.2-14.7)
[2023-02-15 11:40] LABS: BACTERIA,URINE FEW /HPF; SQUAMOUS EPITHELIAL CELL,UR RARE /HPF; WBC,URINE 0-2 /HPF
[2023-02-15 11:41] LABS: HYALINE CASTS, URINE 0-2 /LPF
--- NOTE | 2023-02-15 11:57 | Diagnostic Imaging Report ---
EXAMINATION: Chest 1 view HISTORY: weakness COMPARISON: 05/20/2022 FINDINGS: Heart size and pulmonary vasculature are normal. There are diffuse interstitial opacities of both lungs. Redemonstrated left perihilar opacification. A left-sided Port-A-Cath is unchanged. No pleural effusion or pneumothorax. Degenerative changes of the thoracic spine. Osseous structures are otherwise intact. IMPRESSION: 1. Stable left perihilar opacity. 2. Diffuse interstitial opacities of both lungs which can be seen with atelectasis, pulmonary edema, or atypical pneumonia. Dictated by: Dictated on workstation # [id number]
--- NOTE | 2023-02-15 13:22 | PM&R Post Admission Assessment ---
PM&R Date of Visit: Feb 15, 2023 Past Ivljaax-Pirhcb-Oashlw Hx Patient Social History Alcohol Beverage of Choice: Wine 2nd Hand Smoke Exposure: No Recent Hopitalizations: No Immunizations Up To Date Date of Influenza Vaccine: Jun 17, 2021 Seasonal Allergies Seasonal Allergies: Yes Past Medical History Surgeries: Abdominal, Gallbladder, Orthopedic, Tonsillectomy, Vasectomy Currently Using CPAP: No Currently Using BIPAP: No Cardiac: High Cholesterol Neurological: Parkinson's Disease Musculoskeletal: Chronic Back Pain HEENT: Cataract Loss of Vision: Denies Cancer: Prostate, Liver, Lung Did You Recieve Any Treatments: No History of Blood Disorders: No PM&R Allergy/Meds/Data Review Allergies Coded Allergies: Sulfa (Sulfonamide Antibiotics) (Verified Allergy, Unknown, 04/09/22) Home Medications Scheduled Acyclovir (Acyclovir), 400 MG PO TID, (Reported) Apixaban (Eliquis), 2.5 MG PO BID, (Reported) Atorvastatin Calcium (Atorvastatin Calcium), 20 MG PO DAILY, (Reported) Carbidopa/Levodopa (Carbidopa-Levodopa 25-100 Tab), 3 EA PO TID, (Reported) Folic Acid (Folic Acid), 1 MG PO DAILY, (Reported) Scheduled PRN Cetirizine HCl (Cetirizine HCl), 10 MG PO DAILY PRN for ALLERGY SYMPTOMS, (Reported) Hydrocodone/Acetaminophen (Hydrocodone-Acetamin 5-325 mg), 1 EA PO Q4H PRN for PAIN-MODERATE (5-7), (Reported) Discontinued Medications Aspirin (Aspirin EC), 81 MG PO DAILY, (Reported) Discontinued Reason: No Longer Taking Carbidopa/Levodopa (Carbidopa-Levo 25-100 mg Odt), 3 TAB PO TID, (Reported) Discontinued Reason: No Longer Taking Hydrocodone/Acetaminophen (Hydrocodone-Acetamin 7.5-325), 1 EACH PO Q4H Discontinued Reason: No Longer Taking Laboratory Data Laboratory Tests 02/15/23 10:50: White Blood Count 8.6, Red Blood Count 3.04L, Hemoglobin 9.2L, Hematocrit 28L, Mean Corpuscular Volume 93, Mean Corpuscular Hemoglobin 30, Mean Corpuscular Hemoglobin Concent 33, Red Cell Distribution Width 16.5H, Platelet Count 275, Mean Platelet Volume 11.5, Immature Granulocyte % (Auto) 4, Neutrophils (%) (Auto) 77H, Lymphocytes (%) (Auto) 6L, Monocytes (%) (Auto) 12, Eosinophils (%) (Auto) 0, Basophils (%) (Auto) 1, Neutrophils # (Auto) 6.6, Lymphocytes # (Auto) 0.5L, Monocytes # (Auto) 1.0, Eosinophils # (Auto) 0.0, Basophils # (Auto) 0.0, Immature Granulocyte # (Auto) 0.3H, Prothrombin Time 20.4H, INR Comment 1.7H, Activated Partial Thromboplast Time 49H, Sodium Level 140, Potassium Level 4.4, Chloride Level 103, Carbon Dioxide Level 27, Anion Gap 10, Blood Urea Nitrogen 33H, Creatinine 0.84, Estimat Glomerular Filtration Rate 87, BUN/Creatinine Ratio 39, Glucose Level 93, Calcium Level 8.2L, Corrected Calcium 9.6, Total Bilirubin 0.5, Aspartate Amino Transf (AST/SGOT) 38H, Alanine Aminotransferase (ALT/SGPT) 21, Alkaline Phosphatase 71, Total Protein 4.2L, Albumin 2.3L 02/15/23 11:27: Urine Color YELLOW, Urine Clarity CLOUDY, Urine pH 5.5, Urine Specific [place] 1.020, Urine Protein 1+H, Urine Glucose (UA) NEGATIVE, Urine Ketones TRACEH, Urine Nitrite NEGATIVE, Urine Bilirubin NEGATIVE, Urine Urobilinogen 0.2, Urine Leukocyte Esterase NEGATIVE, Urine RBC (Auto) NEGATIVE, Urine RBC NONE, Urine WBC 0-2, Urine Squamous Epithelial Cells RARE, Urine Crystals NONE, Urine Bacteria FEWH, Urine Casts PRESENT, Urine Hyaline Casts 0-2H, Urine Mucus SMALLH , Urine Culture Indicated CULTURE PENDING 02/15/23 11:28: Lactic Acid Level 1.35 Physical Exam Physical Exam Vital Signs Vital Signs - First Documented 02/15/23 10:50 Temp 37.2 Pulse 87 Resp 18 B/P (MAP) 143/62 (89) Pulse Ox 99 O2 Delivery Nasal Cannula O2 Flow Rate 2.00 Capillary Refill : Less Than 3 Seconds Height, Weight, BMI Height: '" Weight: lbs. oz. kg; 24.00 BMI Method: General Appearance: No Apparent Distress, WD/WN Neck: Non Tender, Supple Respiratory: Lungs Clear, Normal Breath Sounds, No Accessory Muscle Use, No Respiratory Distress Cardiovascular: Regular Rate, Rhythm Neurologic/Psychiatric: Alert, Normal Mood/Affect Skin: Normal Color, Warm/Dry PM&R Medical Assessment & Plan REHAB/MEDICAL ASSESSMENT AND PLAN: REHAB IMPAIRMENT GROUP: [ ] ETIOLOGIC DIAGNOSIS: [ (condition that led to rehab admission) ] The comorbidities that impact the patients function and/or functional outcome by: [ ] REHAB PLAN: The patient is being admitted to our comprehensive inpatient rehabilitation facility and can tolerate the intensity of service consisting of at least: 180 minutes of therapy a day, 5 out of 7 days a week Rehab treatment will consist of: [ (write brief focus that includes physician, rehab nursing and therapies/modalitiesIPOC will have more specifics) ] The patient/family has a good understanding of our discharge process and will benefit from an interdisciplinary inpatient rehabilitation program. The patient has potential to make improvement and is in need of at least two of the following multidisciplinary therapies including but not limited to physical, occupational, speech, and prosthetics and orthotics. Additionally the patient will need services from respiratory, nutritional services, wound care, psychology, etc. (Customize this to each patient). Given the patients complex condition and risk of further medical complications, rehabilitation services cannot be safely or effectively provided at a lower level of care such as a usp facility. BARRIERS TO DISCHARGE: [ ] ESTIMATED LOS: [ ] DISPOSITION: [ ] RELEVANT CHANGES SINCE PREADMISSION SCREENING: I have compared the patients medical and functional status at the time of the preadmission screening and there are: [no changes] [changes as follows: (if there is a discrepancy between the IGC/Etiologic stated on the PAS, address/clarify this as well) ] PROGNOSIS: [ ] REHABILITATION GOALS: 1. [ (specific to the patient) ] All the above goals were reviewed with the patient and he/she is in agreement. By signing this document, I acknowledge that I have personally performed a full physical examination on this patient within 24 hours of admission to this inpatient rehabilitation facility and have determined the patient to be able to tolerate the above course of treatment at an intensive level for a reasonable period of time. I will be completing a detailed individualized Plan of Care for this patient by day #4 of the patients stay based upon the Preadmission Screen, the Post-Admission Evaluation, and the therapy evaluations. RAJWINDER ROSALES DO Feb 15, 2023 13:22
[2023-02-15 14:30] VITALS: BP 108/64
[2023-02-15] MEDS ORDERED: DOCUSATE SODIUM 100 MG (COLACE) CAP PO PRN (14:45)
[2023-02-15] MEDS ORDERED: BISACODYL 10 MG SUPP (DULCOLAX) PR PRN (14:45)
[2023-02-15] MEDS ORDERED: ONDANSETRON 4 MG (ZOFRAN) ORAL DISSOLVE TAB PO PRN (14:45)
[2023-02-15] MEDS ORDERED: LOPERAMIDE 2 MG (IMODIUM) TABLET PO PRN (14:45)
[2023-02-15] MEDS ORDERED: diphenhydrAMINE 25 MG TAB (BENADRYL) PO PRN (14:45)
[2023-02-15] MEDS ORDERED: ALPRAZolam 0.25 MG (XANAX) TAB PO PRN (14:45)
[2023-02-15] MEDS ORDERED: MELATONIN 3 MG TABLET PO PRN (14:45)
[2023-02-15] MEDS ORDERED: ACETAMINOPHEN 325 MG TABLET PO PRN (14:45)
[2023-02-15] MEDS ORDERED: FLEET ENEMA ADULT 1 EA BTL PR PRN (14:45)
[2023-02-15] MEDS ORDERED: LACTULOSE SYRUP 10GM/15ML (ENULOSE) 30ML UDC PO PRN (14:45)
[2023-02-15] MEDS ORDERED: guaiFENesin/CODEINE (ROBITUSSIN AC) 10ML UDC PO PRN (14:45)
[2023-02-15] MEDS ORDERED: APIX2.5T PO (15:04)
[2023-02-15] MEDS ORDERED: ACHD5005 PO (15:04)
[2023-02-15] MEDS ORDERED: CARB1TAB32 PO (15:04)
[2023-02-15] MEDS ORDERED: ACYC400T21 PO (15:04)
[2023-02-15] MEDS ORDERED: CETI10TA17 PO (15:05)
[2023-02-15] MEDS ORDERED: CALCIUM CARBONATE 500 MG (TUMS) TAB.CHEW PO PRN (15:15)
--- NOTE | 2023-02-15 15:30 | Occupational Therapy Eval ---
OT Evaluation-General/PLF Medical Diagnosis Admission Date Feb 15, 2023 at 14:05 Medical Diagnosis: chemotherapy induced myopathy Onset Date: Feb 13, 2023 Therapy Diagnosis Therapy Diagnosis: decreased ADL status, weakness. Precautions Precautions/Isolations: Fall Prevention, Standard Precautions Referral Physician: Shasha Acuña Reason: Evaluation/Treatment Medical History Additional Medical History Lung cancer (last chemo tx ~ 2 weeks ago), Parkinson's, L4 & 5 fusion, lami x2, prostate cancer, liver cancer Current History 02/15/23 ED with c/o increased weakness and confusion since Tuesday, had fall on Tuesday. Pt admitted to ARU directly from ED 02/15/23 Social History Home: Single Level Current Living Status: Spouse Entry Into Home: Stairs With Railing (L railk) Steps Into Home: 2 ADL-Prior Level of Function SCALE: Activities may be completed with or without assistive devices. 4-Gnbfxsipkv-kjzqwon completes the activity by him/herself with no assistance from a helper. 5-Set-up or Clean-up Assistance-helper sets up or cleans up; patient completes activity. [place] assists only prior to or following the activity. 4-Supervision or Touching Assistance-helper provides verbal cues and/or touching/steadying and/or contact guard assistance as patient completes activity. Assistance may be provided throughout the activity or intermittently. 3-Partial/Moderate Assistance-helper does LESS THAN HALF the effort. [place] lifts, holds or supports trunk or limbs, but provides less than half the effort. 2-Substantial/Maximal Assistance-helper does MORE THAN HALF the effort. [place] lifts or holds trunk or limbs and provides more than half the effort. 8-Ppifvjlry-jbzsrv does ALL the effort. Patient does none of the effort to complete the activity. Or, the assistance of 2 or more helpers is required for the patient to complete the activity. If activity was not attempted, code reason: 7-Patient Refused. 9-Not Applicable-not attempted and the patient did not perform the activity before the current illness, exacerbation or injury. 10-Not Attempted due to Environmental Limitations-(lack of equipment, weather restraints, etc.). 88-Not Attempted due to Medical Conditions or Safety Concerns. ADL PLOF Comments Pt reports requiring assistance with footwear at PLOF, indicates he could shower, don/doff pants and shirt, and toilet without assistance. He has a walk in shower with SC and GBs. He has a BSC over toilet. Self Care: Needed Some Help Functional Cognition: Independent DME/Equipment: Bath Chair, Bedside Commode, Grab Bars, Shower DME/Equipment Comments FWW (within home), 4WW (outside home) OT Current Status Subjective Pt agreeable to therapy tx, denies pain. Mental Status/Objective Patient Orientation: Person, Place, Time, Situation Attachments: Oxygen (4L Oxymask) Current Glasses/Contacts: Yes Hearing Aids: No Dentures/Partials: No Hand Dominance: Right Upper Extremity ROM WFL, BUE shoulder flexion to approx 160 degrees Upper Extremity Coordination WFL Upper Extremity Sensation WFL per pt reprot Upper Extremity Strength BUE shoulder flexion/extension grossly 4-/5, elbow flex/ext grossly 4-/5, gross grasp fair. Edema: Swelling noted in BLEs/feet, and slight swelling dorsal aspect R hand. Pt recently dx with LLE DVT ~2 weeks ago, swelling more significant in LLE compared to RLE, and slight redness noted in LLE. ADL-Treatment Eating (QC): 6 (Per pt and spouse report.) Oral Hygiene (QC): 4 (SBA seated.) Shower/Bathe Self (QC): 3 (Min A overall. Assist with thoroughness for BLEs lower legs/feet, and buttocks.) Upper Body Dressing (QC): 4 (SBA) Lower Body Dressing (QC): 2 (Assist threading BLEs due to gripper socks getting stuck on pant legs.) On/Off Footwear (QC): 3 (Pt able to doff, assist to don.) Toileting Hygiene (QC): 3 (Pt required VCs for sequencing. Assistance with posterior hygiene. ) Other Treatments OT evaluation complete. OT/PT cotreat due to skill of 2 clinicians required which a rehab rn could not perform in order to coordinate UE/LEs, decrease fall risk, and due to pt's limitations in strength, activity tolerance, mobility, and transfers. OT focused on UE placement, cues for sequencing and safety and ADLs, PT focused on LE Placement, gross overall movement, transfers/mobility. Pt completed ADL tasks as outlined above (dressing, grooming, toileting). Pt required frequent rest breaks throughout ADLs. Pt performed functional mobility and transfers including mobility using FWW, sit to/from stand transfers, bed mobility, w/c mobility, even and uneven surfaces, and car transfer. Education OT Patient Education: Correct positioning, Energy conservation, Modified ADL techniques, Progress toward Goal/Update tx plan, Purpose of tx/functional activities, Rehab process Teaching Recipient: Patient Teaching Methods: Discussion Response to Teaching: Verbalize Understanding BIMS CAM BIMS Expression of Ideas and Wants: Without Difficulty Understanding Verbal Content: Understands Brief Interview/Mental Status: Yes IRF ERROL BIMS: IRF ERROL BIMS Response (Comments) Value Repitition of Three Words Three 3 Recalls Socks Yes, No Cue Required 2 Recalls Blue Yes, No Cue Required 2 Recalls Bed Yes, No Cue Required 2 Year Correct 3 Month Accurate Within 5 Days 2 Day Correct 1 Total 15 Should Staff Asses. Mental St.: No CAM Mental Status Change/Baseline: 0 Inattention: 0 Disorganized thinkin Altered level of consciousness: 0 OT Long-Term Goals Sales Representative [employer] Goals Time Frame: Mar 04, 2023 Eating (QC): 6 Oral Hygiene (QC): 6 Toileting Hygiene (QC): 6 Shower/Bathe Self (QC): 6 Upper Body Dressing (QC): 6 Lower Body Dressing (QC): 6 On/Off Footwear (QC): 6 Additional Goals: 1-Demonstrate ADL Tasks, 2-Verbalize Understanding, 3- ImproveStrength/[place] 1=Demonstrate adherence to instructed precautions during ADL tasks. 2=Patient will verbalize/demonstrate understanding of assistive devices/modifications for ADL. 3=Patient will improve strength/tolerance for activity to enable patient to perform ADL's. OT Education/Plan Problem List/Assessment Assessment: Decreased Activ Tolerance, Decreased UE Strength, Impaired Funct Balance, Impaired I ADL's, Impaired Self-Care Skills Discharge Recommendations Plan/Recommendations: Continue POC Comment Pt may benefit from hip kit for energy conservation and to improve independence with footwear. Recommendations to be determined based on pt's progress. Treatment Plan/Plan of Care Patient would benefit from OT for education, treatment and training to promote independence in ADL's, mobility, safety and/or upper extremity function for ADL's. Plan of Care: ADL Retraining, Functional Mobility, Group Exercise/Act as Ind, UE Funct Exercise/Act, OTHER (edema management) Treatment Duration: Mar 04, 2023 Frequency: At least 5 of 7 days/Wk (IRF) Estimated Hrs Per Day: 1.5 hours per day Agreement: Yes Rehab Potential: Good Time Start Time: 14:20 ([id number] OT evaluation x15') Stop Time: 16:05 ([id number] [place] x75') DATE: Feb 15, 2023 Total Time Billed (hr/min): 90 Billed Treatment Time 9458-8407 OT evaluation (15'). [id number] PT eval (not billed), [id number] [place] (75') 1, EVM (15'), ADL 2 (30'), FA 3 (45') JOAQUIM MCCANN OT Feb 15, 2023 15:30
[2023-02-15] MEDS ORDERED: SENNA W/DOCUSATE (SENOKOT S) TABLET PO SCH (21:00)
[2023-02-15] MEDS ORDERED: DOCUSATE SODIUM 100 MG (COLACE) CAP PO SCH (21:00)
[2023-02-15] MEDS ORDERED: APIXABAN 2.5 MG (ELIQUIS) TABLET PO SCH (21:00)
[2023-02-15] MEDS ORDERED: polyethylene glycoL POWDER 17 GM (MIRALAX) PACK PO SCH (21:00)
== END 2023-02-15 14:28 | disposition other institution (70) ==
LOC: EDUNIT# 10:50 → ER 10:51 → UNDOADMIN 14:05
DX: G72.9 Myopathy, unspecified (principal); G20 Parkinson's disease; R79.1 Abnormal coagulation profile; R71.0 Precipitous drop in hematocrit; R79.89 Other specified abnormal findings of blood chemistry; J98.4 Other disorders of lung; Z86.718 Personal history of other venous thrombosis and embolism
CPT/HCPCS: 36415; 71045; 80053; 81000; 83605; 83880; 85025; 85610; 85730; 87040; 87077; 87088; 87186

== ENCOUNTER 2023-02-15 13:38 | Inpatient (IN) | payer MEDICARE, OTHER ==
[~2023-02-15] VITALS: Ht 177 cm; Wt 79.0 kg
[2023-02-15 14:30] VITALS: BP 108/64
[2023-02-15] MEDS ORDERED: CARB1TAB32 PO (15:04)
[2023-02-15] MEDS ORDERED: ACYC400T21 PO (15:04)
[2023-02-15] MEDS ORDERED: APIX2.5T PO (15:04)
[2023-02-15] MEDS ORDERED: ACHD5005 PO (15:04)
[2023-02-15] MEDS ORDERED: CETI10TA17 PO (15:05)
[2023-02-15] MEDS ORDERED: diphenhydrAMINE 25 MG TAB (BENADRYL) PO PRN (15:45)
[2023-02-15] MEDS ORDERED: CALCIUM CARBONATE 500 MG (TUMS) TAB.CHEW PO PRN (15:45)
[2023-02-15] MEDS ORDERED: DOCUSATE SODIUM 100 MG (COLACE) CAP PO PRN (15:45)
[2023-02-15] MEDS ORDERED: ACETAMINOPHEN 325 MG TABLET PO PRN (15:45)
[2023-02-15] MEDS ORDERED: BISACODYL 10 MG SUPP (DULCOLAX) PR PRN (15:45)
[2023-02-15] MEDS ORDERED: guaiFENesin/CODEINE (ROBITUSSIN AC) 10ML UDC PO PRN (15:45)
[2023-02-15] MEDS ORDERED: ALPRAZolam 0.25 MG (XANAX) TAB PO PRN (15:45)
[2023-02-15] MEDS ORDERED: MELATONIN 3 MG TABLET PO PRN (15:45)
[2023-02-15] MEDS ORDERED: LOPERAMIDE 2 MG (IMODIUM) TABLET PO PRN (15:45)
[2023-02-15] MEDS ORDERED: ONDANSETRON 4 MG (ZOFRAN) ORAL DISSOLVE TAB PO PRN (15:45)
[2023-02-15] MEDS ORDERED: LACTULOSE SYRUP 10GM/15ML (ENULOSE) 30ML UDC PO PRN (15:45)
[2023-02-15] MEDS ORDERED: FLEET ENEMA ADULT 1 EA BTL PR PRN (15:45)
--- NOTE | 2023-02-15 15:46 | PM&R Post Admission Assessment ---
PM&R HP Date of Visit: Feb 15, 2023 Time of Visit: 15:00 History of Present Illness Chief complaint: Chemotherapy induced myopathy HPI: This is an 82-year-old male clinic patient of Dr. Chiu who receives chemotherapy by Dr. Hodges for lung cancer with widespread metastasis who presented to the ER with severe weakness and could not ambulate in order to safely go home. His labs were all within normal limits. He does have a fish bacute DVT in the left leg. He remains on Eliquis. He lives at home with his . He does have a history of Parkinson's. He did sustain a fall without injury but he has declined since that fall 5 days ago. Prior level of functioning was mostly independent with his helping him but that has progressively declined in function and recent chemotherapy was 2 weeks ago. Past Lxwxxre-Kohmew-Cbnmya Hx Past Med/Social Hx: Reviewed Nursing Past Med/Soc Hx, Reviewed and Corrections made Patient Social History Marrital Status: Employed/Student: retired Alcohol Use: Denies Use Alcohol Beverage of Choice: Wine Smoking Status: Former Smoker 2nd Hand Smoke Exposure: No Recent Hopitalizations: No Immunizations Up To Date Date of Influenza Vaccine: Jun 17, 2021 Seasonal Allergies Seasonal Allergies: Yes Past Medical History Surgeries: Abdominal, Gallbladder, Orthopedic, Tonsillectomy, Vasectomy Currently Using CPAP: No Currently Using BIPAP: No Cardiac: High Cholesterol Neurological: Parkinson's Disease Musculoskeletal: Chronic Back Pain HEENT: Cataract Loss of Vision: Denies Cancer: Prostate, Liver, Lung Did You Recieve Any Treatments: No History of Blood Disorders: No PM&R Allergy/Meds/Data Review Allergies Coded Allergies: Sulfa (Sulfonamide Antibiotics) (Verified Allergy, Unknown, 04/09/22) Home Medications Scheduled Acyclovir (Acyclovir), 400 MG PO TID, (Reported) Apixaban (Eliquis), 2.5 MG PO BID, (Reported) Atorvastatin Calcium (Atorvastatin Calcium), 20 MG PO DAILY, (Reported) Carbidopa/Levodopa (Carbidopa-Levodopa 25-100 Tab), 3 EA PO TID, (Reported) Folic Acid (Folic Acid), 1 MG PO DAILY, (Reported) Scheduled PRN Cetirizine HCl (Cetirizine HCl), 10 MG PO DAILY PRN for ALLERGY SYMPTOMS, (Reported) Hydrocodone/Acetaminophen (Hydrocodone-Acetamin 5-325 mg), 1 EA PO Q4H PRN for PAIN-MODERATE (5-7), (Reported) Discontinued Medications Aspirin (Aspirin EC), 81 MG PO DAILY, (Reported) Discontinued Reason: No Longer Taking Carbidopa/Levodopa (Carbidopa-Levo 25-100 mg Odt), 3 TAB PO TID, (Reported) Discontinued Reason: No Longer Taking Hydrocodone/Acetaminophen (Hydrocodone-Acetamin 7.5-325), 1 EACH PO Q4H Discontinued Reason: No Longer Taking Current Medications Current Medications Reviewed Review of Systems Constitutional: see HPI, malaise, weakness EENTM: no symptoms reported Respiratory: no symptoms reported Cardiovascular: no symptoms reported Gastrointestinal: no symptoms reported Genitourinary: no symptoms reported Musculoskeletal: back pain, joint pain Skin: no symptoms reported Psychiatric/Neurological: Anxiety, Depressed All Other Systems Reviewed Negative Unless Noted: Yes Physical Exam Physical Exam Vital Signs Capillary Refill : Height, Weight, BMI Height: '" Weight: lbs. oz. kg; 24.00 BMI Method: General Appearance: No Apparent Distress, WD/WN, Chronically ill Eyes: Bilateral Eye Normal Inspection, Bilateral Eye PERRL HEENT: PERRL/EOMI, Normal ENT Inspection, Pharynx Normal Neck: Full Range of Motion, Normal Inspection, Non Tender, Supple, Carotid Bruit Respiratory: Chest Non Tender, Lungs Clear, Normal Breath Sounds, No Accessory Muscle Use, No Respiratory Distress Cardiovascular: Regular Rate, Rhythm, No Edema, No Gallop, No JVD, No Murmur, Normal Peripheral Pulses Gastrointestinal: Normal Bowel Sounds, No Organomegaly, No Pulsatile Mass, Non Tender, Soft Back: Normal Inspection, No CVA Tenderness, No Vertebral Tenderness Extremity: Normal Capillary Refill, Normal Inspection, Normal Range of Motion, Non Tender, No Calf Tenderness, No Pedal Edema Neurologic/Psychiatric: Alert, Oriented x3, elderly caregiver II-XII Norm as Tested, Abnormal Gait, Depressed Affect, Motor Weakness (Severe generalized weakness 3/5 all extremities) Skin: Normal Color, Warm/Dry Lymphatic: No Adenopathy PM&R Medical Assessment & Plan REHAB/MEDICAL ASSESSMENT AND PLAN: REHAB IMPAIRMENT GROUP: Chemotherapy induced myopathy ETIOLOGIC DIAGNOSIS: Chemotherapy induced myopathy The comorbidities that impact the patients function and/or functional outcome by: active lung cancer with metastasis, Parkinson's, recent fall, severe weakness, lives at home with his REHAB PLAN: The patient is being admitted to our comprehensive inpatient rehabilitation facility and can tolerate the intensity of service consisting of at least: 180 minutes of therapy a day, 5 out of 7 days a week Rehab treatment will consist of: PT and OT will focus on use of assistive devices in order to increase ambulation and increased independence in ADLs in order to return back home to live with his spouse The patient/family has a good understanding of our discharge process and will benefit from an interdisciplinary inpatient rehabilitation program. The patient has potential to make improvement and is in need of at least two of the following multidisciplinary therapies including but not limited to physical, occupational, speech, and prosthetics and orthotics. Additionally the patient will need services from respiratory, nutritional services, wound care, psyc hology, etc. (Customize this to each patient). Given the patients complex condition and risk of further medical complications, rehabilitation services cannot be safely or effectively provided at a lower level of care such as a usp facility. BARRIERS TO DISCHARGE: severe weakness from chemotherapy ESTIMATED LOS: 10 days DISPOSITION: home RELEVANT CHANGES SINCE PREADMISSION SCREENING: I have compared the patients medical and functional status at the time of the preadmission screening and there are: no changes PROGNOSIS: fair REHABILITATION GOALS: 1.PT and OT will focus on use of assistive devices in order to increase ambulation and increased independence in ADLs in order to return back home to live with his spouse All the above goals were reviewed with the patient and he/she is in agreement. By signing this document, I acknowledge that I have personally performed a full physical examination on this patient within 24 hours of admission to this inpatient rehabilitation facility and have determined the patient to be able to tolerate the above course of treatment at an intensive level for a reasonable period of time. I will be completing a detailed individualized Plan of Care for this patient by day #4 of the patients stay based upon the Preadmission Screen, the Post-Admission Evaluation, and the therapy evaluations. Admission Dx/Comorbidities: (1) Myopathy ICD Codes: G72.9 - Myopathy, unspecified (2) Weakness ICD Codes: R53.1 - Weakness (3) Lung cancer ICD Codes: C34.90 - Malignant neoplasm of unspecified part of unspecified bronchus or lung Assessment/Plan Assessment and Plan Assess & Plan/Chief Complaint Assessment: Chemotherapy induced myopathy Lung cancer with widespread metastasis Parkinson's Falls Severe weakness Subacute DVT left leg on oral anticoagulation Plan: Home meds Oral anticoagulation Pain control Aggressive PT and OT RAJWINDER ROSALES DO Feb 15, 2023 15:46
--- NOTE | 2023-02-15 16:12 | Occupational Therapy Eval ---
OT Evaluation-General/PLF Medical Diagnosis Admission Date Medical Diagnosis: chemotherapy induced myopathy Onset Date: Feb 13, 2023 Therapy Diagnosis Therapy Diagnosis: decreased ADL status, weakness. Referral Physician: Shasha Referral Reason: Evaluation/Treatment Medical History Additional Medical History Lung cancer (last chemo tx ~ 2 weeks ago), Parkinson's, L4 & 5 fusion, lami x2, prostate cancer, liver cancer Current History 02/15/23 ED with c/o increased weakness and confusion since Tuesday, had fall on Tuesday. Pt admitted to ARU directly from ED 02/15/23 Social History Home: Single Level Current Living Status: Spouse Entry Into Home: Stairs With Railing (L rail) Steps Into Home: 2 ADL-Prior Level of Function SCALE: Activities may be completed with or without assistive devices. 0-Iyoytordyz-foixemg completes the activity by him/herself with no assistance from a helper. 5-Set-up or Clean-up Assistance-helper sets up or cleans up; patient completes activity. [place] assists only prior to or following the activity. 4-Supervision or Touching Assistance-helper provides verbal cues and/or touching/steadying and/or contact guard assistance as patient completes activity. Assistance may be provided throughout the activity or intermittently. 3-Partial/Moderate Assistance-helper does LESS THAN HALF the effort. [place] lifts, holds or supports trunk or limbs, but provides less than half the effort. 2-Substantial/Maximal Assistance-helper does MORE THAN HALF the effort. [place] lifts or holds trunk or limbs and provides more than half the effort. 6-Uskicsykl-wtnxio does ALL the effort. Patient does none of the effort to complete the activity. Or, the assistance of 2 or more helpers is required for the patient to complete the activity. If activity was not attempted, code reason: 7-Patient Refused. 9-Not Applicable-not attempted and the patient did not perform the activity before the current illness, exacerbation or injury. 10-Not Attempted due to Environmental Limitations-(lack of equipment, weather restraints, etc.). 88-Not Attempted due to Medical Conditions or Safety Concerns. ADL PLOF Comments Pt reports requiring assistance with footwear at PLOF, indicates he could shower, don/doff pants and shirt, and toilet without assistance. He has a walk in shower with SC and GBs. He has a BSC over toilet. He reports needing some steadying assistance to min A at times with functional mobility using FWW within the home and 4WW outside of the home. Self Care: Needed Some Help Functional Cognition: Independent DME/Equipment: Bath Chair, Bedside Commode, Grab Bars, Shower DME/Equipment Comments FWW (within home), 4WW (outside home) OT Current Status Subjective Pt agreeable to therapy tx, denies pain. Mental Status/Objective Patient Orientation: Person, Place, Time, Situation Attachments: Oxygen (4L Oxymask), Other-See Comments (Port) Current Glasses/Contacts: Yes Hearing Aids: No Dentures/Partials: No Hand Dominance: Right Upper Extremity ROM WFL, BUE shoulder flexion to approx 160 degrees Upper Extremity Coordination WFL Upper Extremity Sensation WFL Per pt report. Upper Extremity Strength BUE shoulder flexion/extension grossly 4-/5, elbow flex/ext grossly 4-/5, gross grasp fair. Edema: Swelling noted in BLEs/feet, and slight swelling dorsal aspect R hand. Pt recently dx with LLE DVT ~2 weeks ago, swelling more significant in LLE compared to RLE, and slight redness noted in LLE. ADL-Treatment Eating (QC): 6 (Per pt and spouse report.) Oral Hygiene (QC): 4 (SBA seated) Shower/Bathe Self (QC): 3 (Min A overall. Assist for thoroughness BLEs lower legs/feet and butocks.) Upper Body Dressing (QC): 4 (SBA) Lower Body Dressing (QC): 2 (Assist threading BLEs due to gripper socks getting stuck on pant legs.) On/Off Footwear (QC): 3 (Pt able to doff, assist to don.) Toileting Hygiene (QC): 3 (Pt required VCs for sequencing. Assistance with posterior hygiene) Other Treatments OT evaluation complete. OT/PT cotreat due to skill of 2 clinicians required which a quality control technician could not perform in order to coordinate UE/LEs, decrease fall risk, and due to pt's limitations in strength, activity tolerance, mobility, and transfers. OT focused on UE placement, cues for sequencing and safety and ADLs, PT focused on LE Placement, gross overall movement, transfers/mobility. Pt completed ADL tasks as outlined above (dressing, grooming, toileting). Pt required frequent rest breaks throughout ADLs. BSC placed over toilet to simulate home environment, RN notified. Pt performed functional mobility and transfers including mobility using FWW, sit to/from stand transfers, bed mobility, w/c mobility, even and uneven surfaces, and car transfer. Pt educated on exercises to decrease swelling/edema. Pt propelled w/c back to his room, transferring from w/c to EOB, then supine. Post tx, pt in bed, call light in reach and all needs met. Min A rolling, min A supine to/from sit, min A sit to/from stand, min A bed/chair, Min A toilet transfer, min A car transfer. Min A with functional mobility using FWW 50'. Min A w/c mobility 150'. Education OT Patient Education: Correct positioning, Energy conservation, Modified ADL techniques, Progress toward Goal/Update tx plan, Purpose of tx/functional activities, Rehab process Teaching Recipient: Patient Teaching Methods: Discussion Response to Teaching: Verbalize Understanding BIMS CAM BIMS Expression of Ideas and Wants: Without Difficulty Understanding Verbal Content: Understands Brief Interview/Mental Status: Yes IRF ERROL BIMS: IRF ERROL BIMS Response (Comments) Value Repitition of Three Words Three 3 Recalls Socks Yes, No Cue Required 2 Recalls Blue Yes, No Cue Required 2 Recalls Bed Yes, No Cue Required 2 Year Correct 3 Month Accurate Within 5 Days 2 Day Correct 1 Total 15 Should Staff Asses. Mental St.: No CAM Mental Status Change/Baseline: 0 Inattention: 0 Disorganized thinkin Altered level of consciousness: 0 OT Short Term Goals Short Term Goals Time Frame: Feb 23, 2023 Shower/bathe self: 4 Lower body dressin Putting on/taking off footwear: 4 OT Residential Goals [place] Goals Time Frame: Mar 04, 2023 Eating (QC): 6 Oral Hygiene (QC): 6 Toileting Hygiene (QC): 6 Shower/Bathe Self (QC): 6 Upper Body Dressing (QC): 6 Lower Body Dressing (QC): 6 On/Off Footwear (QC): 6 Additional Goals: 1-Demonstrate ADL Tasks, 2-Verbalize Understanding, 3- ImproveStrength/[place] 1=Demonstrate adherence to instructed precautions during ADL tasks. 2=Patient will verbalize/demonstrate understanding of assistive de vices/modifications for ADL. 3=Patient will improve strength/tolerance for activity to enable patient to perform ADL's. OT Education/Plan Problem List/Assessment Assessment: Decreased Activ Tolerance, Decreased UE Strength, Impaired Funct Balance, Impaired I ADL's, Impaired Self-Care Skills Discharge Recommendations Plan/Recommendations: Continue POC Comment Pt may benefit from hip kit for energy conservation and to improve independence with footwear. Recommendations to be determined based on pt's progress. Treatment Plan/Plan of Care Patient would benefit from OT for education, treatment and training to promote independence in ADL's, mobility, safety and/or upper extremity function for ADL's. Plan of Care: ADL Retraining, Functional Mobility, Group Exercise/Act as Ind, UE Funct Exercise/Act, OTHER (edema management) Treatment Duration: Mar 04, 2023 Frequency: At least 5 of 7 days/Wk (IRF) Estimated Hrs Per Day: 1.5 hours per day Agreement: Yes Rehab Potential: Good Time Start Time: 14:20 ([id number] OT evaluation x15') Stop Time: 16:05 ([id number] [place] x75') DATE: Feb 15, 2023 Total Time Billed (hr/min): 90 Billed Treatment Time [id number] OT evaluation (15'). [id number] PT eval (not billed), [id number] [place] (75') 1, EVM (15'), ADL 2 (30'), FA 3 (45') JOAQUIM MCCANN OT Feb 15, 2023 16:12
--- NOTE | 2023-02-15 16:14 | Physical Therapy Evaluation ---
PT Evaluation-General Medical Diagnosis Admission Date Feb 15, 2023 at 14:05 Medical Diagnosis: chemotherapy induced myopathy Onset Date: Feb 13, 2023 Therapy Diagnosis Therapy Diagnosis: Weakness, Decreased functional mobility Precautions Precautions/Isolations: Fall Prevention, Standard Precautions Weight Bear Status Right Lower Extremity: Right Full Weight Bearing Left Lower Extremity: Left Full Weight Bearing Referral Physician: Shasha Reason for Referral: Evaluation/Treatment Medical History Additional Medical History Lung cancer (last chemo tx ~ 2 weeks ago), Parkinson's, L4 & 5 fusion, lami x2, prostate cancer, liver cancer Current History 02/15/23 ED with c/o increased weakness and confusion since Tuesday, had fall on Tuesday. Pt admitted to ARU directly from ED 02/15/23 Reviewed History: Yes Social History Home: Single Level Current Living Status: Spouse Entry Into Home: Stairs With Railing (Left) PT Steps Into Home: 2 Pt lives with his spouse in a single story home with 2 steps to enter/exit with L handrail. Pt has a walk-in shower with SC, GBs, and BSC over the toilet. Prior Prior Level of Function SCALE: Activities may be completed with or without assistive devices. 9-Ssqwjlxvhg-hlbjrth completes the activity by him/herself with no assistance from a helper. 5-Set-up or Clean-up Assistance-helper sets up or cleans up; patient completes activity. [place] assists only prior to or following the activity. 4-Supervision or Touching Assistance-helper provides verbal cues and/or touching/steadying and/or contact guard assistance as patient completes activity. Assistance may be provided throughout the activity or intermittently. 3-Partial/Moderate Assistance-helper does LESS THAN HALF the effort. [place] lifts, holds or supports trunk or limbs, but provides less than half the effort. 2-Substantial/Maximal Assistance-helper does MORE THAN HALF the effort. [place] lifts or holds trunk or limbs and provides more than half the effort. 0-Kpevqehfv-ceifup does ALL the effort. Patient does none of the effort to comp lete the activity. Or, the assistance of 2 or more helpers is required for the patient to complete the activity. If activity was not attempted, code reason: 7-Patient Refused. 9-Not Applicable-not attempted and the patient did not perform the activity before the current illness, exacerbation or injury. 10-Not Attempted due to Environmental Limitations-(lack of equipment, weather restraints, etc.). 88-Not Attempted due to Medical Conditions or Safety Concerns. Bed Mobility: 4 Transfers (B,C,W/C): 4 Gait: 4 Stairs: 4 Wheelchair Mobility: 9 Indoor Mobility (Ambulation): Needed Some Help Stairs: Needed Some Help Prior Devices Use: Walker At [facility], pt reports he was requiring SBA for improved safety with functional mobility and Min A, at times. Pt reports that he uses a FWW in the home and a 4WW in the community. PT Evaluation-Current Subjective Pt is agreeable to PT. Denies pain Pain Location: No Pain Reported Section J - Health Conditions 1. Rarely or not at all 2. Occasionally 3. Frequently 4. Almost constantly 8. Unable to answer Pain Effect on Sleep: 1 Pain Interference with Therapy: 1 Pain Interference w/Day-to-Day: 1 Pt/Family Goals Improve strength/mobility and safely return home Objective Patient Orientation: Person, Place, Time, Situation Attachments: Oxygen (4L ), Other-See Comments (Port ) ROM/Strength ROM Upper Extremities WFL ROM Lower Extremities WFL Strength Upper Extremities WFL Strength Lower Extremities B LE MMT = 3+/5 grossly Integumentary/Posture Integumentary See nurses note Bowel Incontinence: No Bladder Incontinence: No Sensory Vision: Wears Glasses Hearing: Functional Hand Dominance: Right Sensation Right Upper Extremit: Intact Sensation Left Upper Extremity: Intact Sensation Right Lower Extremit: Intact Sensation Left Lower Extremity: Intact Transfers Roll Left & Right (QC): 3 (Min A) Sit to Lying (QC): 3 (Min A) Lying to Sitting/Side of Bed(Q: 3 (Min A) Sit to Stand (QC): 3 (Min A) Chair/Ntb-vp-Klbbk Xfer(QC): 3 (Min A3) Toilet Transfer (QC): 3 (Min A) Car Transfer (QC): 3 (Min A) Gait Does the Patient Walk?: Yes Mode of Locomotion: Both Anticipated Mode of Locomotion: Walk Walk 10 feet (QC): 3 (Min A for FWW) Walk 50 ft with 2 Turns(QC): 3 (Min A for FWW) Walk 150 ft (QC): 88 Walking 10ft/uneven surface-QC: 3 (Min A for FWW) Distance: 50ft Gait Assistive Device: FWW Wheelchair Training Does the Pt Use a Wheelchair?: Yes Distance: 150ft Wheel 50 ft with 2 turns (QC): 3 (Min A) Wheel 150 ft (QC): 3 (Min A) Type of Wheelchair: Manual Stairs 1 Step (curb) (QC): 88 4 Steps (QC): 88 12 Steps (QC): 88 Balance Sitting Static: Good Sitting Dynamic: Good Standing Static: Fair Standing Dynamic: Fair Picking up an Object (QC): 4 (CGA ) Special Test Comments KU standing balance scale = 3+/5 (goal = 4+/5) Treatment PT eval completed. PT/OT co-tx due to skill of 2 clinicians required which a rehabilitation specialist could not perform in order to coordinate UE/LEs, decrease fall risk, and due to pt's limitations in strength, activity tolerance, mobility, and transfers. PT focused on LE placement, gross overall movement, bed mobility/transfers/walking/w/c mobility. OT focused on UE placement, cues for sequencing and safety and ADLs. Pt completed ADL tasks as outlined above (dressing, grooming, toileting). Pt required frequent rest breaks throughout ADLs. Pt performed functional mobility and transfers including mobility using FWW, sit to/from stand transfers, bed mobility, w/c mobility, even and uneven surfaces, and car transfer. Pt also completed seated B LE Ther Ex x 15-20 reps each with the red Tband. Assessment/Needs Pt tolerated PT well and would benefit from skilled PT to progress towards PLOF and safe d/c home with spouse Rehab Potential: Good Post Rehab Potential-Barriers: Weakness/activity tolerance Equipment Needs N/A PT Mill Controller Goals Nursing Home Goals PT Mill Controller Goals Time Frame: Feb 25, 2023 Roll Left to Right (QC): 4 (SBA for functional mobility ) Sit to Lying (QC): 4 (SBA for functional mobility ) Lying-Sitting on Side/Bed(QC): 4 (SBA for functional mobility ) Sit to Stand (QC): 4 (SBA for functional mobility ) Chair/Vzm-az-Atbtr Xfer(QC): 4 (SBA for functional mobility ) Toilet/Commode Transfer (QC): 4 (SBA for functional mobility ) Car Transfer (QC): 4 (SBA for functional mobility ) Does the Patient Walk: Yes Walk 10 feet (QC): 4 (SBA for functional mobility ) Walk 10ft-Uneven Surface(QC): 4 (SBA for functional mobility ) Walk 50ft with 2 Turns (QC): 4 (SBA for functional mobility ) Walk 150 ft (QC): 4 (SBA for functional mobility ) Does the Pt use WC or Scooter?: Yes Wheel 50 feet with 2 turns (QC: 4 (SBA for functional mobility ) Type: Manual Wheel 150 feet: 4 (SBA for functional mobility ) Type: Manual 1 Step (curb) (QC): 4 (SBA for functional mobility ) 4 Steps (QC): 4 (SBA for functional mobility ) 12 Steps (QC): 4 (SBA for functional mobility ) Picking up an Object (QC): 5 (with vp medical ) KU standing balance scale goal = 4+/5 PT Plan Problem List Problem List: Activity Tolerance, Functional Strength, Safety, Balance, Gait, Transfer, Bed Mobility Treatment/Plan Treatment Plan: Continue Plan of Care Treatment Plan: Bed Mobility, Concurrent Therapy, Education, Functional Activity [place], Functional Strength, Group Therapy, Gait, Safety, Therapeutic Exercise, Transfers Treatment Duration: Feb 25, 2023 Frequency: At least 5 of 7 days/Wk (IRF) Estimated Hrs Per Day: 1.5 hours per day Patient and/or Family Agrees t: Yes Safety Risks/Education Patient Education: Gait Training, Transfer Techniques, W/C Management, Safety Issues Teaching Recipient: Patient Teaching Methods: Demonstration, Discussion Response to Teaching: Verbalize Understanding, Return Demonstration, Reinforcement Needed Discharge Recommendations Therapy Discharge Recommendati: Home & Family Discharge Status/Home Program cont per POC Barriers to Progress weakness/endurance Target Placement home with spouse Time Time In: 1435 Time Out: 1605 DATE: Feb 15, 2023 Total Billed Treatment Time: 90 Total Billed Treatment 90 min (1067-1548; 15 min PT eval from [id number]; co-tx for 75 min from 1450- 1605) 1 visit EVM FA x 4 EX x 1 BELEN LONDON PT Feb 15, 2023 16:14
[2023-02-15 21:00] VITALS: BP 118/58
[2023-02-15] MEDS ORDERED: APIXABAN 2.5 MG (ELIQUIS) TABLET PO SCH (21:00)
[2023-02-15] MEDS ORDERED: DOCUSATE SODIUM 100 MG (COLACE) CAP PO SCH (21:00)
[2023-02-15] MEDS ORDERED: SENNA W/DOCUSATE (SENOKOT S) TABLET PO SCH (21:00)
[2023-02-15] MEDS ORDERED: HYDROcodone/APAP 5 MG/325 MG (LORTAB) TAB PO PRN (21:00)
[2023-02-15] MEDS ORDERED: ACYCLOVIR 400 MG TABLET (ZOVIRAX) PO SCH (21:00)
[2023-02-15] MEDS ORDERED: SINEMET 25/100 (CARBIDOPA/LEVODOPA) TAB PO SCH (21:00)
[2023-02-15] MEDS ORDERED: polyethylene glycoL POWDER 17 GM (MIRALAX) PACK PO SCH (21:00)
[2023-02-15] MEDS ORDERED: LORATADINE (CLARITIN) 10 MG TAB PO PRN (21:45)
--- NOTE | 2023-02-16 05:55 | Individualized Plan of Care ---
Individualized Plan of Care Rehab Nursing IPOC Order Admission Date Feb 15, 2023 at 14:30 Current Orders Orders Admission Order(Inpt,Obs,Sdc) (02/15/23 15:43) Vital Signs: Per Unit Policy ( 08,16,00 (02/15/23 15:43) Jan Almanzar , (02/15/23 15:43) Sequential Compression Device (02/15/23 15:43) Roll Line Operator-Inpt Rehab Con (02/15/23 15:43) Rehab Nursing Orders-Ipoc (02/15/23 15:43) Physical Therapy Rehab Orders (02/15/23 15:43) Occupational Therapy Rehab Ord (02/15/23 15:43) Speech Therapy Rehab Orders (02/15/23 15:43) Precautions (Aru) (02/15/23 15:43) Weekly Weight WEEK (02/15/23 15:43) Rehab-Intensity Of Therapy (02/15/23 15:43) Initiate Admission Nursing Pro .admission (02/15/23 15:43) Alprazolam Tablet (Xanax Tablet) (02/15/23 15:45) Calcium Carbonate Chew Tablet (Antacid C (02/15/23 15:45) Diphenhydramine Tablet (Benadryl Tablet) (02/15/23 15:45) Docusate Sodium Capsule (Colace Capsule) (02/15/23 21:00) Docusate Sodium Capsule (Colace Capsule) (02/15/23 15:45) Bisacodyl Suppository (Dulcolax Supposit (02/15/23 15:45) Lactulose Oral Solution (Enulose Oral So (02/15/23 15:45) Na Phos/Na Biphos Enema (Fleet Enema Blaine (02/15/23 15:45) Guaifenesin/Codeine Syrup (Robitussin Ac (02/15/23 15:45) Loperamide Tablet (Imodium Tablet) (02/15/23 15:45) Melatonin Tablet (Melatonin Tablet) (02/15/23 15:45) Polyethylene Glycol Powder Pkt (Miralax (02/15/23 21:00) Ondansetron Oral Dissolve Tab (Zofran (02/15/23 15:45) Senna S Tablet (Senokot S Tablet) (02/15/23 21:00) Acetaminophen Tablet/Caplet (Tylenol T (02/15/23 15:45) Initiate Admission Nursing Pro .admission (02/15/23 15:43) Admission Arrival Bed Request (02/15/23 15:51) General/Regular (02/15/23 Dinner) Incentive Spirometry Initial (02/15/23 18:06) Incentive Spirometry (Nursing) Q2H (02/15/23 18:06) Ensure Plus Vanilla (02/15/23 18:14) Acyclovir Capsule/Tablet (Zovirax Caps (02/15/23 21:00) Apixaban Tablet (Eliquis Tablet) (02/15/23 21:00) Atorvastatin Tablet (Lipitor Tablet) (02/16/23 09:00) Carbidopa/Levodopa 25/100 (Sinemet 25/10 (02/15/23 21:00) Folic Acid Tablet (Folic Acid Tablet) (02/16/23 09:00) Hydrocodone/Apap 5/325 Tablet (Lortab 5 (02/15/23 21:00) Loratadine Tablet (Claritin Tablet) (02/15/23 21:45) Cbc With Automated Diff (02/16/23 06:28) Comprehensive Metabolic Panel (02/16/23 06:28) Arterial Blood Gas (02/16/23 06:28) Arterial Blood Draw - Obtain (02/16/23 06:28) Furosemide Injection (Lasix Injection) (02/16/23 06:30) Chest 1 View, Ap/Pa Only (02/16/23 06:28) Bnp [place] (02/16/23 06:28) Lactic Acid Analyzer (02/16/23 06:28) Manual Differential (02/16/23 06:40) Attending Discharge Inpt/Inobs (02/16/23 08:04) Rehab Nursing Orders: Ongoing Assess. of Function Status Intensity of Therapy to be met Patient to be seen: Min.3h per day/5 of 7d PT IPOC Problem List: Activity Tolerance, Functional Strength, Safety, Balance, Gait, T ransfer, Bed Mobility Bed Mobility, Concurrent Therapy, Education, Functional Activity [place], Functional Strength, Group Therapy, Gait, Safety, Therapeutic Exercise, Transfers Treatment Duration: Feb 25, 2023 Frequency: At least 5 of 7 days/Wk (IRF) Estimated Hrs Per Day: 1.5 hours per day OT IPOC Problems: Decreased Activ Tolerance, Decreased UE Strength, Impaired Funct Balance, Impaired I ADL's, Impaired Self-Care Skills Plan of Care: ADL Retraining, Functional Mobility, Group Exercise/Act as Ind, UE Funct Exercise/Act, OTHER (edema management) Treatment Duration: Mar 04, 2023 Frequency: At least 5 of 7 days/Wk (IRF) Estimated Hrs Per Day: 1.5 hours per day Roll Line Operator/Case Mgmt Roll Line Operator/Case Managemen: Discharge Planning Dietitian/Food And Beverage Manager Dietitian/Food And Beverage Manager to monitor nutritional status and make changes and/or recommendations as needed and work with speech pathology on dietary upgrades as the occur. Physician IPOC Medical Issues being managed closely and that require the 24 hour availability of a physician: Brief Synthesis of Preadmission Screen, Post-Admission Evaluation, and Therapy Evaluations: RAJWINDER ROSALES DO Feb 16, 2023 05:55
--- NOTE | 2023-02-16 05:55 | PM&R Progress Note ---
Subjective HPI/CC On Admission Date Seen by Provider: Feb 16, 2023 Subjective/Events-last exam 02/16/2023: Review of Systems General: Fatigue, Malaise Focused Exam Lactate Level 02/16/23 06:40: Lactic Acid Level 6.84*H Lactic Acid Level Laboratory Tests Test 02/16/23 06:40 Lactic Acid Level 6.84 MMOL/L (0.50-2.00) *H Objective Exam Vital Signs Vital Signs Date Time Temp Pulse Resp B/P (MAP) Pulse Ox O2 Delivery O2 Flow Rate FiO2 02/15/23 21:50 90 OxyMask 4.00 02/15/23 21:00 36.9 100 22 118/58 (78) Capillary Refill : General Appearance: No Apparent Distress, WD/WN, Chronically ill HEENT: PERRL/EOMI, Normal ENT Inspection, Pharynx Normal Neck: Full Range of Motion, Normal Inspection, Non Tender, Supple, Carotid Bruit Respiratory: Chest Non Tender, Lungs Clear, Normal Breath Sounds, No Accessory Muscle Use, No Respiratory Distress Cardiovascular: Regular Rate, Rhythm, No Edema, No Gallop, No JVD, No Murmur, Normal Peripheral Pulses Gastrointestinal: Normal Bowel Sounds, No Organomegaly, No Pulsatile Mass, Non Tender, Soft Back: Normal Inspection, No CVA Tenderness, No Vertebral Tenderness Extremity: Normal Capillary Refill, Normal Inspection, Normal Range of Motion, Non Tender, No Calf Tenderness, No Pedal Edema Neurologic/Psychiatric: Alert, Oriented x3, ends breakage clerk II-XII Norm as Tested, Abnormal Gait, Depressed Affect, Motor Weakness (Severe generalized weakness 3/5 all extremities) Skin: Normal Color, Warm/Dry Lymphatic: No Adenopathy Results/Procedures Lab Laboratory Tests 02/16/23 06:40 Patient resulted labs reviewed. FIM Transfers Therapy Code Descriptions/Definitions Functional Jack Measure: 0=Not Assessed/NA 4=Minimal Assistance 1=Total Assistance 5=Supervision or Setup 2=Maximal Assistance 6=Modified Jack 3=Moderate Assistance 7=Complete IndependenceSCALE: Activities may be completed with or without assistive devices. 3-Wzzvqeyenn-scuiyqa completes the activity by him/herself with no assistance from a helper. 5-Set-up or Clean-up Assistance-helper sets up or cleans up; patient completes activity. [place] assists only prior to or following the activity. 4-Supervision or Touching Assistance-helper provides verbal cues and/or touching/steadying and/or contact guard assistance as patient completes activity. Assistance may be provided throughout the activity or intermittently. 3-Partial/Moderate Assistance-helper does LESS THAN HALF the effort. [place] lifts, holds or supports trunk or limbs, but provides less than half the effort. 2-Substantial/Maximal Assistance-helper does MORE THAN HALF the effort. [place] lifts or holds trunk or limbs and provides more than half the effort. 9-Pbtbbwked-mfyjtm does ALL the effort. Patient does none of the effort to complete the activity. Or, the assistance of 2 or more helpers is required for the patient to complete the activity. If activity was not attempted, code reason: 7-Patient Refused. 9-Not Applicable-not attempted and the patient did not perform the activity before the current illness, exacerbation or injury. 10-Not Attempted due to Environmental Limitations-(lack of equipment, weather restraints, etc.). 88-Not Attempted due to Medical Conditions or Safety Concerns. Roll Left to Right (QC): 3 (Min A) Sit to Lying (QC): 3 (Min A) Sit to Stand (QC): 3 (Min A) Chair/Xuy-ab-Asrfb Xfer(QC): 3 (Min A3) Car Transfer (QC): 3 (Min A) Gait Training Does the Patient Walk?: Yes Walk 10 feet (QC): 3 (Min A for FWW) Walk 50 ft with 2 Turns(QC): 3 (Min A for FWW) Walk 150 ft (QC): 88 Walking 10ft/uneven surface-QC: 3 (Min A for FWW) Gait Assistive Device: FWW Wheelchair Training Does the Pt Use a Wheelchair?: Yes Distance: 150ft Wheel 50 ft with 2 turns (QC): 3 (Min A) Wheel 150 ft (QC): 3 (Min A) Type of Wheelchair: Manual Stair Training 1 Step (curb) (QC): 88 4 Steps (QC): 88 12 Steps (QC): 88 Balance Picking up an Object (QC): 4 (CGA ) ADL-Treatment Eating (QC): 6 (Per pt and spouse report.) Oral Hygiene (QC): 4 (SBA seated) Shower/Bathe Self (QC): 3 (Min A overall. Assist for thoroughness BLEs lower legs/feet and butocks.) Upper Body Dressing (QC): 4 (SBA) Lower Body Dressing (QC): 2 (Assist threading BLEs due to gripper socks getting stuck on pant legs.) On/Off Footwear (QC): 3 (Pt able to doff, assist to don.) Toileting Hygiene (QC): 3 (Pt required VCs for sequencing. Assistance with posterior hygiene) Assessment/Plan Assessment and Plan Assess & Plan/Chief Complaint Assessment: Chemotherapy induced myopathy Lung cancer with widespread metastasis Parkinson's Falls Severe weakness Subacute DVT left leg on oral anticoagulation Plan: Home meds Oral anticoagulation Pain control Aggressive PT and OT 02/16/2023: (1) Myopathy (2) Weakness (3) Lung cancer RAJWINDER ROSALES DO Feb 16, 2023 05:55
[2023-02-16] MEDS ORDERED: FUROSEMIDE 40 MG/4 ML INJ (LASIX) IVP NR (06:30)
[2023-02-16 06:50] LABS: BASOPHILS # (AUTO) 0.1 10^3/uL (0.0-0.1); BASOPHILS % (AUTO) 0 % (0-10); EOSINOPHILS % (AUTO) 0 % (0-10); HEMATOCRIT 27 % (40-54); HEMOGLOBIN 8.9 g/dL (13.3-17.7); LYMPHOCYTES # (AUTO) 0.7 10^3/uL (1.0-4.0); LYMPHOCYTES % (AUTO) 5 % (12-44); MEAN CORPUSCULAR HEMOGLOBIN 31 pg (25-34); MEAN CORPUSCULAR HGB CONC 33 g/dL (32-36); MEAN CORPUSCULAR VOLUME 94 fL (80-99); MEAN PLATELET VOLUME 10.9 fL (9.0-12.2); MONOCYTES # (AUTO) 1.5 10^3/uL (0.0-1.0); MONOCYTES % (AUTO) 12 % (0-12); NEUTROPHILS % (AUTO) 76 % (42-75); PLATELET COUNT 352 10^3/uL (130-400); WHITE BLOOD COUNT 13.2 10^3/uL (4.3-11.0)
[2023-02-16 07:01] LABS: ABG BASE EXCESS -1.5 MMOL/L (-2.5-2.5); ABG OXYGEN SATURATION 95 % (94-100); ABG PCO2 29 MMHG (35-45); ABG PH 7.48 (7.37-7.43); ABG PO2 68 MMHG (79-93); ABG TCO2 22.5 MMOL/L (21.0-31.0)
[2023-02-16 07:02] LABS: ALBUMIN 2.2 GM/DL (3.2-4.5); POTASSIUM 4.9 MMOL/L (3.6-5.0)
[2023-02-16 07:02] LABS: ALLENS TEST YES-POS; INSPIRED O2 15L; PATIENT TEMP 36.2; VENTILATOR NO
[2023-02-16 07:03] LABS: CALCIUM 7.9 MG/DL (8.5-10.1)
[2023-02-16 07:06] LABS: BILIRUBIN,TOTAL 0.5 MG/DL (0.1-1.0)
[2023-02-16 07:08] LABS: CREATININE SERUM 1.27 MG/DL (0.60-1.30)
[2023-02-16 07:13] LABS: ANISOCYTOSIS SLIGHT; HYPOCHROMASIA SLIGHT; LYMPHOCYTES % (MANUAL) 4 %; MONOCYTES % (MANUAL) 5 %; MYELOCYTES % 2 %; NEUTROPHILS % (MANUAL) 89 %
[2023-02-16 07:45] VITALS: BP 99/55
--- NOTE | 2023-02-16 07:49 | Diagnostic Imaging Report ---
EXAMINATION: Chest 1 view HISTORY: Hypoxia. COMPARISON: 02/15/2023. FINDINGS: Interval marked worsening of opacities throughout the lungs with relative sparing of the left lung base. No large pleural effusion or pneumothorax. Stable left port. Stable cardiac silhouette. IMPRESSION: 1. Marked worsening of opacities throughout the lungs which may represent infection and/or edema. Dictated by: Dictated on workstation # [id number]
--- NOTE | 2023-02-16 08:05 | Discharge Summary ---
Diagnosis/Chief Complaint Date of Admission Feb 15, 2023 at 14:30 Date of Discharge Discharge Date: Feb 16, 2023 Discharge Diagnosis Assessment: Severe sepsis from pneumonia requiring ICU transfer emergently Chemotherapy induced myopathy Lung cancer with widespread metastasis Parkinson's Falls Severe weakness Subacute DVT left leg on oral anticoagulation Discharge Summary Discharge Physical Examination Allergies: Coded Allergies: Sulfa (Sulfonamide Antibiotics) (Verified Allergy, Unknown, 04/09/22) Vitals & I&Os Vital Signs Date Time Temp Pulse Resp B/P (MAP) Pulse Ox O2 Delivery O2 Flow Rate FiO2 02/16/23 07:45 37.2 98 24 99/55 (70) 90 OxyMask 15.00 Hospital Course Was the Problem List Reviewed?: Yes Hospital course: Patient had a short hospital course after he was admitted for chemotherapy induced myopathy he became hypoxic abruptly sepsis work-up was positive for severe sepsis from pneumonia and he was transferred to ICU Labs (last 24 hrs) Laboratory Tests 02/16/23 06:30: Blood Gas Puncture Site RRAD, Blood Gas Patient Temperature 36.2, Arterial Blood pH 7.48H, Arterial Blood Partial Pressure CO2 29L, Arterial Blood Partial Pressure O2 68L, Arterial Blood HCO3 22L, Arterial Blood Total CO2 22.5, Arterial Blood Oxygen Saturation 95, Arterial Blood Base Excess -1.5, James Test YES-POS, Blood Gas Ventilator Setting NO, Blood Gas Inspired Oxygen 15L 02/16/23 06:40: White Blood Count 13.2H, Red Blood Count 2.90L, Hemoglobin 8.9L, Hematocrit 27L, Mean Corpuscular Volume 94, Mean Corpuscular Hemoglobin 31, Mean Corpuscular Hemoglobin Concent 33, Red Cell Distribution Width 16.9H, Platelet Count 352, Mean Platelet Volume 10.9, Immature Granulocyte % (Auto) 7, Neutrophils (%) (Auto) 76H, Lymphocytes (%) (Auto) 5L, Monocytes (%) (Auto) 12, Eosinophils (%) (Auto) 0, Basophils (%) (Auto) 0, Neutrophils # (Auto) 10.0H, Lymphocytes # (Auto) 0.7L, Monocytes # (Auto) 1.5H, Eosinophils # (Auto) 0.0, Basophils # (Auto) 0.1, Immature Granulocyte # (Auto) 0.9H, Neutrophils % (Manual) 89, Lymphocytes % (Manual) 4, Monocytes % (Manual) 5, Myelocytes % 2, Hypochromasia SLIGHT, Anisocytosis SLIGHT, Sodium Level 140, Potassium Level 4.9, Chloride Level 103, Carbon Dioxide Level 21, Anion Gap 16H, Blood Urea Nitrogen 35H, Creatinine 1.27, Estimat Glomerular Filtration Rate 56, BUN/Creatinine Ratio 28, Glucose Level 96, Lactic Acid Level 6.84*H, Calcium Level 7.9L, Corrected Calcium 9.3, Total Bilirubin 0.5, Aspartate Amino Transf (AST/SGOT) 50H, Alanine Aminotransferase (ALT/SGPT) 11, Alkaline Phosphatase 82, B-Type Natriuretic Peptide 301.7H, Total Protein 4.0L, Albumin 2.2L 02/16/23 08:20: Lactic Acid Level 3.51*H 02/16/23 10:36: Lactic Acid Level 1.78 Pending Labs Laboratory Tests 02/16/23 06:30: Blood Gas Puncture Site RRAD, Blood Gas Patient Temperature 36.2, Arterial Blood pH 7.48, Arterial Blood Partial Pressure CO2 29, Arterial Blood Partial Pressure O2 68, Arterial Blood HCO3 22, Arterial Blood Total CO2 22.5, Arterial Blood Oxygen Saturation 95, Arterial Blood Base Excess -1.5, James Test YES-POS, Blood Gas Ventilator Setting NO, Blood Gas Inspired Oxygen 15L 02/16/23 06:40: White Blood Count 13.2, Red Blood Count 2.90, Hemoglobin 8.9, Hematocrit 27, Mean Corpuscular Volume 94, Mean Corpuscular Hemoglobin 31, Mean Corpuscular Hemoglobin Concent 33, Red Cell Distribution Width 16.9, Platelet Count 352, Mean Platelet Volume 10.9, Immature Granulocyte % (Auto) 7, Neutrophils (%) (Auto) 76, Lymphocytes (%) (Auto) 5, Monocytes (%) (Auto) 12, Eosinophils (%) (Auto) 0, Basophils (%) (Auto) 0, Neutrophils # (Auto) 10.0, Lymphocytes # (Auto) 0.7, Monocytes # (Auto) 1.5, Eosinophils # (Auto) 0.0, Basophils # (Auto) 0.1, Immature Granulocyte # (Auto) 0.9, Neutrophils % (Manual) 89, Lymphocytes % (Manual) 4, Monocytes % (Manual) 5, Myelocytes % 2, Hypochromasia SLIGHT, A nisocytosis SLIGHT, Sodium Level 140, Potassium Level 4.9, Chloride Level 103, Carbon Dioxide Level 21, Anion Gap 16, Blood Urea Nitrogen 35, Creatinine 1.27, Estimat Glomerular Filtration Rate 56, BUN/Creatinine Ratio 28, Glucose Level 96, Lactic Acid Level 6.84, Calcium Level 7.9, Corrected Calcium 9.3, Total Bilirubin 0.5, Aspartate Amino Transf (AST/SGOT) 50, Alanine Aminotransferase (ALT/SGPT) 11, Alkaline Phosphatase 82, B-Type Natriuretic Peptide 301.7, Total Protein 4.0, Albumin 2.2 02/16/23 08:20: Lactic Acid Level 3.51 02/16/23 10:36: Lactic Acid Level 1.78 Discharge Home Medications: Active Scripts Active Reported Cetirizine HCl 10 Mg Tablet 10 Mg PO DAILY PRN Carbidopa-Levodopa 25-100 Tab (Carbidopa/Levodopa) 25 Mg-100 Mg Tablet 3 Ea PO TID Acyclovir 400 Mg Tablet 400 Mg PO TID Hydrocodone-Acetamin 5-325 mg (Hydrocodone/Acetaminophen) 5 Mg-325 Mg Tablet 1 Ea PO Q4H PRN Eliquis (Apixaban) 2.5 Mg Tablet 2.5 Mg PO BID Folic Acid 1 Mg Tablet 1 Mg PO DAILY Atorvastatin Calcium 20 Mg Tablet 20 Mg PO DAILY Instructions to patient/family Please see electronic discharge instructions given to patient. Diagnosis/Problems Diagnosis/Problems (1) Myopathy (2) Weakness (3) Lung cancer RAJWINDER ROSALES DO Feb 16, 2023 08:05
[2023-02-16] MEDS ORDERED: FOLIC ACID 1 MG TAB PO SCH (09:00)
--- NOTE | 2023-02-16 12:52 | Therapy Team Discharge Summary ---
Therapy Discharge Summary Discharge Recommendations Date of Discharge Feb 16, 2023 at 08:00 Physical Therapy Roll Left to Right (QC): 3 (Min A) Sit to Lying (QC): 3 (Min A) Lying to Sitting/Side of Bed(Q: 3 (Min A) Sit to Stand (QC): 3 (Min A) Chair/Ugn-jw-Jemof Xfer(QC): 3 (Min A3) Toilet Transfer (QC): 2 Car Transfer (QC): 3 (Min A) Does the Patient Walk: Yes Mode of Locomotion: Both Anticipated Mode of Locomotion: Walk Walk 10 feet (QC): 3 (Min A for FWW) Walk 50 ft with 2 Turns(QC): 3 (Min A for FWW) Walk 150 ft (QC): 88 Walking 10ft on uneven surface: 3 (Min A for FWW) Distance: 50ft Gait Assistive Device: FWW Does the Pt Use a Wheelchair: Yes Wheelchair Distance: 150ft Wheel 50 ft with 2 turns (QC): 3 (Min A) Wheel 150 ft (QC): 3 (Min A) Type of Wheelchair: Manual 1 Step (curb) (QC): 88 4 Steps (QC): 88 12 Steps (QC): 88 Balance Sitting Static: Good Balance Sitting Dynamic: Good Balance-Standing Static: Fair Picking up an Object (QC): 4 (CGA ) Occupational Therapy Pt admitted to ARU 02/15/23 with chemotherapy induced myopathy. At [facility], pt required some assistance with ADLS and functional mobility using FWW/4WW. Upon initial evaluation, pt was independent with eating, required SBA with oral care and UE dressing, min-mod A with UE dressing, footwear and toileting and max A LE dressing. Pt only seen for initial evaluation due to transferring to ICU due to increased medical complexity. Pt transferred to ICU prior to any follow up treatments being complete, thus he did not make any progress towards goals, and did not attain any LTGS. D/C from OT at this time to higher level of care. Decreased Activ Tolerance, Decreased UE Strength, Impaired Funct Balance, Impaired I ADL's, Impaired Self-Care Skills Eating (QC): 6 (Per pt and spouse report.) Oral Hygiene (QC): 4 (SBA seated) Shower/Bathe Self (QC): 3 (Min A overall. Assist for thoroughness BLEs lower legs/feet and butocks.) Upper Body Dressing (QC): 4 (SBA) Lower Body Dressing (QC): 2 (Assist threading BLEs due to gripper socks getting stuck on pant legs.) On/Off Footwear (QC): 3 (Pt able to doff, assist to don.) Toileting Hygiene (QC): 3 (Pt required VCs for sequencing. Assistance with posterior hygiene) PT Payment Rep Goals Payment Rep Goals PT Payment Rep Goals Time Frame: Feb 25, 2023 Roll Left to Right (QC): 4 (SBA for functional mobility ) Sit to Lying (QC): 4 (SBA for functional mobility ) Lying-Sitting on Side/Bed(QC): 4 (SBA for functional mobility ) Sit to Stand (QC): 4 (SBA for functional mobility ) Chair/Dtw-wb-Pfgvg Xfer(QC): 4 (SBA for functional mobility ) Toilet/Commode Transfer (QC): 4 (SBA for functional mobility ) Car Transfer (QC): 4 (SBA for functional mobility ) Does the Patient Walk: Yes Walk 10 feet (QC): 4 (SBA for functional mobility ) Walk 10ft-Uneven Surface(QC): 4 (SBA for functional mobility ) Walk 50ft with 2 Turns (QC): 4 (SBA for functional mobility ) Walk 150 ft (QC): 4 (SBA for functional mobility ) Does the Pt use WC or Scooter?: Yes Wheel 50 feet with 2 turns (QC: 4 (SBA for functional mobility ) Type: Manual Wheel 150 feet: 4 (SBA for functional mobility ) Type: Manual 1 Step (curb) (QC): 4 (SBA for functional mobility ) 4 Steps (QC): 4 (SBA for functional mobility ) 12 Steps (QC): 4 (SBA for functional mobility ) Picking up an Object (QC): 5 (with turbine technician ) OT Payment Rep Goals Care Home Goals Time Frame: Mar 04, 2023 Acute change in mental status: 0 Inattention: 0 Disorganized thinkin Altered level of consciousness: 0 Eating (QC): 6 Oral Hygiene (QC): 6 Toileting Hygiene (QC): 6 Shower/Bathe Self (QC): 6 Upper Body Dressing (QC): 6 Lower Body Dressing (QC): 6 On/Off Footwear (QC): 6 Additional Goals: 1-Demonstrate ADL Tasks, 2-Verbalize Understanding, 3-Impr oveStrength/Eden 1=Demonstrate adherence to instructed precautions during ADL tasks. 2=Patient will verbalize/demonstrate understanding of assistive devices/modifications for ADL. 3=Patient will improve strength/tolerance for activity to enable patient to perform ADL's. JOAQUIM MCCANN OT Feb 16, 2023 12:52
--- NOTE | 2023-02-16 13:12 | Therapy Team Discharge Summary ---
Therapy Discharge Summary Discharge Recommendations Date of Discharge Feb 16, 2023 at 08:00 Physical Therapy Pt admitted to ARU 02/15/23 with chemotherapy induced myopathy. At [facility], pt required some assistance with functional mobility and ADLs from , using FWW/4WW. Upon PT eval pt was was Min A for bed mobility, functional transfers, walking of 50ft with the FWW, and w/c mobility. Did not attempt stairs secondary to safety concerns. Pt was only seen for initial eval, due to transferring to ICU secondary to increased medical complexity. Pt transferred to ICU prior to any follow up treatments being completed, thus he did not make any progress towards goals, and did not attain any LTGs. D/C from PT at this time to higher level of care. Roll Left to Right (QC): 3 (Min A) Sit to Lying (QC): 3 (Min A) Lying to Sitting/Side of Bed(Q: 3 (Min A) Sit to Stand (QC): 3 (Min A) Chair/Pje-ag-Taadp Xfer(QC): 3 (Min A) Toilet Transfer (QC): 3 (Min A) Car Transfer (QC): 3 (Min A) Does the Patient Walk: Yes Mode of Locomotion: Both Anticipated Mode of Locomotion: Walk Walk 10 feet (QC): 3 (Min A for FWW) Walk 50 ft with 2 Turns(QC): 3 (Min A for FWW) Walk 150 ft (QC): 88 Walking 10ft on uneven surface: 3 (Min A for FWW) Distance: 50ft Gait Assistive Device: FWW Does the Pt Use a Wheelchair: Yes Wheelchair Distance: 150ft Wheel 50 ft with 2 turns (QC): 3 (Min A) Wheel 150 ft (QC): 3 (Min A) Type of Wheelchair: Manual 1 Step (curb) (QC): 88 4 Steps (QC): 88 12 Steps (QC): 88 Walking Assistive Device: Walker Balance Sitting Static: Good Balance Sitting Dynamic: Good Balance-Standing Static: Fair Picking up an Object (QC): 4 (CGA ) Occupational Therapy Decreased Activ Tolerance, Decreased UE Strength, Impaired Funct Balance, Impaired I ADL's, Impaired Self-Care Skills Eating (QC): 6 (Per pt and spouse report.) Oral Hygiene (QC): 4 (SBA seated) Shower/Bathe Self (QC): 3 (Min A overall. Assist for thoroughness BLEs lower legs/feet and butocks.) Upper Body Dressing (QC): 4 (SBA) Lower Body Dressing (QC): 2 (Assist threading BLEs due to gripper socks getting stuck on pant legs.) On/Off Footwear (QC): 3 (Pt able to doff, assist to don.) Toileting Hygiene (QC): 3 (Pt required VCs for sequencing. Assistance with posterior hygiene) PT Skilled Nursing Goals Power Mule Operator Goals PT Power Mule Operator Goals Time Frame: Feb 25, 2023 Roll Left to Right (QC): 4 (SBA for functional mobility ) Sit to Lying (QC): 4 (SBA for functional mobility ) Lying-Sitting on Side/Bed(QC): 4 (SBA for functional mobility ) Sit to Stand (QC): 4 (SBA for functional mobility ) Chair/Hft-rb-Zkjfk Xfer(QC): 4 (SBA for functional mobility ) Toilet/Commode Transfer (QC): 4 (SBA for functional mobility ) Car Transfer (QC): 4 (SBA for functional mobility ) Does the Patient Walk: Yes Walk 10 feet (QC): 4 (SBA for functional mobility ) Walk 10ft-Uneven Surface(QC): 4 (SBA for functional mobility ) Walk 50ft with 2 Turns (QC): 4 (SBA for functional mobility ) Walk 150 ft (QC): 4 (SBA for functional mobility ) Does the Pt use WC or Scooter?: Yes Wheel 50 feet with 2 turns (QC: 4 (SBA for functional mobility ) Type: Manual Wheel 150 feet: 4 (SBA for functional mobility ) Type: Manual 1 Step (curb) (QC): 4 (SBA for functional mobility ) 4 Steps (QC): 4 (SBA for functional mobility ) 12 Steps (QC): 4 (SBA for functional mobility ) Picking up an Object (QC): 5 (with bistro server ) OT Power Mule Operator Goals Skilled Nursing Goals Time Frame: Mar 04, 2023 Acute change in mental status: 0 Inattention: 0 Disorganized thinkin Altered level of consciousness: 0 Eating (QC): 6 Oral Hygiene (QC): 6 Toileting Hygiene (QC): 6 Shower/Bathe Self (QC): 6 Upper Body Dressing (QC): 6 Lower Body Dressing (QC): 6 On/Off Footwear (QC): 6 Additional Goals: 1-Demonstrate ADL Tasks, 2-Verbalize Understanding, 3- ImproveStrength/Eden 1=Demonstrate adherence to instructed precautions during ADL tasks. 2=Patient will verbalize/demonstrate understanding of assistive devices/modifications for ADL. 3=Patient will improve strength/tolerance for activity to enable patient to perform ADL's. BELEN LONDON PT Feb 16, 2023 13:12
== END 2023-02-16 08:00 | disposition short-term general hospital (02) | DRG 91 ==
PROVIDERS: ADMIT Internal Medicine; ATTEND Internal Medicine
DX: G72.0 Drug-induced myopathy (principal); A41.9 Sepsis, unspecified organism; R65.20 Severe sepsis without septic shock; J18.9 Pneumonia, unspecified organism; C34.90 Malignant neoplasm of unspecified part of unspecified bronchus or lung; C79.9 Secondary malignant neoplasm of unspecified site; I82.402 Acute embolism and thrombosis of unspecified deep veins of left lower extremity; G20 Parkinson's disease; T45.1X5A Adverse effect of antineoplastic and immunosuppressive drugs, initial encounter; E78.00 Pure hypercholesterolemia, unspecified; R09.02 Hypoxemia; Z91.81 History of falling; Z87.891 Personal history of nicotine dependence; Z79.01 Long term (current) use of anticoagulants; Z79.899 Other long term (current) drug therapy; Z88.2 Allergy status to sulfonamides
CPT/HCPCS: 36415; 71045; 80053; 82805; 83605; 83880; 85007; 85027; 94664

== ENCOUNTER 2023-02-16 07:54 | Inpatient (IN) | payer MEDICARE, OTHER ==
[~2023-02-16] VITALS: Ht 177.8 cm; Wt 85.6 kg
[~2023-02-16 07:54] MED LIST changes: +ACYC400T21 PO; +APIX2.5T PO; +CARB1TAB32 PO; +CETI10TA17 PO
[2023-02-16] MEDS ORDERED: NS IV 500 ML 500 ML IV PRN ×2 (08:00→16:00)
[2023-02-16] MEDS ORDERED: ANTACID SUSP 30 ML UDC (MYLANTA) PO PRN (08:00)
[2023-02-16] MEDS ORDERED: ONDANSETRON 4 MG/2 ML (SDV) Z0FRAN IV PRN (08:00)
[2023-02-16] MEDS ORDERED: ONDANSETRON 4 MG (ZOFRAN) ORAL DISSOLVE TAB PO PRN (08:00)
[2023-02-16] MEDS ORDERED: diphenhydrAMINE 50 MG/ML INJ (BENADRYL) IVP PRN (08:00)
[2023-02-16] MEDS ORDERED: NS IV ONE ×2 (08:00→08:30)
[2023-02-16] MEDS ORDERED: BISACODYL 10 MG SUPP (DULCOLAX) PR PRN (08:00)
[2023-02-16] MEDS ORDERED: diphenhydrAMINE 25 MG TAB (BENADRYL) PO PRN (08:00)
[2023-02-16] MEDS ORDERED: VANCOMYCIN INJECTION 0.1 MG in NS (IVPB) 250 ML IV SCH (08:00)
[2023-02-16] MEDS ORDERED: ACETAMINOPHEN 325 MG TABLET PO PRN (08:00)
[2023-02-16] MEDS ORDERED: polyethylene glycoL POWDER 17 GM (MIRALAX) PACK PO PRN (08:00)
[2023-02-16] MEDS ORDERED: CALCIUM CARBONATE 500 MG (TUMS) TAB.CHEW PO PRN (08:00)
[2023-02-16] MEDS ORDERED: LACTULOSE SYRUP 10GM/15ML (ENULOSE) 30ML UDC PO PRN (08:00)
[2023-02-16] MEDS ORDERED: HYDROmorphone 2 MG/ML VIAL (DILAUDID) IV PRN (08:00)
[2023-02-16] MEDS ORDERED: MELATONIN 3 MG TABLET PO PRN (08:00)
[2023-02-16] MEDS ORDERED: MILK OF MAGNESIA 400 MG/5 ML 30 ML UDC PO PRN (08:00)
--- NOTE | 2023-02-16 08:20 | History & Physical ---
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 Patient was found to be stable in the ER and admitted for weakness from chemotherapy induced myopathy but it appeared that due to his immunosuppressed state he became hypoxic and pneumonia appeared. He is DNR. His is at the bedside. He does appear to be lethargic. Patient is at high risk for decompensation and . Source: family, RN/MD, old records Exam Limitations: clinical condition Date Seen 02/16/23 Time Seen by a Provider: 08:00 Attending Physician Courtney Chiu MD PCP Admitting Physician: Jasmin Pulliam DO Attending Physician: Jasmin Pulliam DO Referring Physician Date of Admission Feb 16, 2023 at 07:57 Home Medications & Allergies Home Medications Reviewed patient Home Medication Reconciliation performed by pharmacy medication reconciliations voip network technician and/or nursing. Patients Allergies have been reviewed. Allergies Allergies Coded Allergies Sulfa (Sulfonamide Antibiotics) (Verified Allergy, Unknown, 04/09/22) Past Kgfjgcm-Pokvxj-Wvkhap Hx Past Med/Social Hx: Reviewed Nursing Past Med/Soc Hx, Reviewed and Corrections made Patient Social History Marrital Status: Employed/Student: retired Alcohol Use: Denies Use Alcohol Beverage of Choice: Wine Smoking Status: Former Smoker 2nd Hand Smoke Exposure: No Recent Hopitalizations: No Immunizations Up To Date Date of Influenza Vaccine: Jun 17, 2021 Seasonal Allergies Seasonal Allergies: Yes Past Medical History Surgeries: Abdominal, Gallbladder, Orthopedic, Tonsillectomy, Vasectomy Currently Using CPAP: No Currently Using BIPAP: No Cardiac: High Cholesterol Neurological: Parkinson's Disease Musculoskeletal: Chronic Back Pain HEENT: Cataract Loss of Vision: Denies Cancer: Prostate, Liver, Lung Did You Recieve Any Treatments: No What Type of Treatment Did You: Chemotherapy, Radiation, Surgical Intervention History of Blood Disorders: No Review of Systems Constitutional: see HPI, malaise, weakness Respiratory: dyspnea on exertion Physical Exam Physical Exam Vital Signs Vital Signs - First Documented 02/16/23 02/16/23 08:00 08:25 Temp 37.0 Pulse Ox 100 O2 Delivery OxyMask O2 Flow Rate 10.00 Capillary Refill : Height, Weight, BMI Height: '" Weight: lbs. oz. kg; 25.21 BMI Method: General Appearance: Chronically ill, Mild Distress, Other (Lethargic, pale, martel) Respiratory: No Respiratory Distress, Accessory Muscle Use, Decreased Breath Sounds Cardiovascular: Regular Rate, Rhythm, No Edema, No Gallop, No JVD, No Murmur, Normal Peripheral Pulses Neurologic/Psychiatric: Alert, Depressed Affect, Disoriented Results Results/Procedures Labs Patient resulted labs reviewed. 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
[2023-02-16] MEDS ORDERED: LIDOCAINE UROJET 2% GEL 10 ML PKG TOP ONE (08:30)
[2023-02-16] MEDS: CEFEPIME INJECTION 1,000 MG in NS (IVPB) 50 ML IV SCH ×2 (08:54→15:31)
[2023-02-16] MEDS: DOCUSATE SODIUM 100 MG (COLACE) CAP PO SCH ×2 (08:59→20:12)
[2023-02-16] MEDS: SENNOSIDES 8.6 MG (SENOKOT) TAB PO SCH ×2 (08:59→20:12)
[2023-02-16] MEDS ORDERED: VANCOMYCIN 1500MG/300ML PREMIX IV NR (09:00)
[2023-02-16] MEDS ORDERED: APIXABAN 5 MG (ELIQUIS) TABLET PO SCH (09:00)
[2023-02-16] MEDS: ENOXAPARIN 80 MG/0.8 ML (LOVENOX) SYR SC SCH (09:49)
--- NOTE | 2023-02-16 10:02 | Tele-ICU Consult ---
History of Present Illness History of Present Illness Date Seen by Provider: Feb 16, 2023 Time Seen by Provider: 10:01 History of Present Illness Tele-ICU Physician , consultation as per request of PCP Service provided via interactive audio and video telecommunTokyo Otaku Mode E-CARE system to a patient admitted to ICU bed in [facility]. Available chart/ vitals / labs / Images reviewed H&P is from ER notes Patient's information available about PMH, Shx, Fhx allergy reviewed inEMR. ROS as per chart and RN report Now in ICU, hemodynamically stable Video assessment done using teleICU camera, rest of exam as per RN Discussed with RN. Hospital course: 02/15- to rehab from home with myopathy 02/16 - to ICU fron rehab with hypoxia and AMS - suspected sepsis , PNA A/P acute hypoxic resp failure - suspected PNA - monitor , tx PNA = patient is DNI Mental status change - most likely TME , moves all extremities - will reassess latter today after TX hypoxia and BP PNA R>L - broad spectrum abx Elev lactate, suspected sepsis - sepsis with hypoxia - improving , will cont to follow - IVF started subacute DVT in the left leg - on Eliquis PRACTICE CONSULTANT - change to lovenox - as per RN - not safe to swallow meds ( ? cellulitis Lung cancer LLL with widespread metastasis Chemotherapy induced myopathy Lines : left chest port , (Central Line Necessity Reviewed) Porter: 02/[address] OG: Nutrition: Analgesia: Anxiety/ delirium VTE Prophylaxis: lovenox Stress Ulcer Prophylaxis: na Plans in collaboration with bedside consultants and IM MDs. Discussed with RN to reach out if any questions or concerns A total of 33 minutes of critical care time was devoted to this patient today, required to treat and/or prevent further deterioration of critical care condition ( as above ) . I am remotely monitoring this patient from another state. I am unable to do the bedside exam, and history/physical and pertinent information is taken from other notes in the computer and bedside staff. . Allergies and Home Medications Allergies Coded Allergies: Sulfa (Sulfonamide Antibiotics) (Verified Allergy, Unknown, 04/09/22) Home Medications Acyclovir 400 Mg Tablet, 400 MG PO TID, (Reported) Apixaban 2.5 Mg Tablet, 2.5 MG PO BID, (Reported) Atorvastatin Calcium 20 Mg Tablet, 20 MG PO DAILY, (Reported) Carbidopa/Levodopa 25 Mg-100 Mg Tablet, 3 EA PO TID, (Reported) Cetirizine HCl 10 Mg Tablet, 10 MG PO DAILY PRN for ALLERGY SYMPTOMS, (Reported) Folic Acid 1 Mg Tablet, 1 MG PO DAILY, (Reported) Hydrocodone/Acetaminophen 5 Mg-325 Mg Tablet, 1 EA PO Q4H PRN for PAIN-MODERATE (5-7), (Reported) Past Medical/Social/Family Hx Immunizations Up To Date First/Initial COVID19 Vaccinat: 09/25 Second COVID19 Vaccination Pa: 10/26 Current Status Primary Language: Irish Review of Systems Constitutional: see HPI Focused Exam Height, Weight, BMI Height: '" Weight: lbs. oz. kg; 25.78 BMI Method: Exam Exam Patient acknowledged, consented, and participated in this virtual visit which was conducted using real time audio/video Vital Signs Date Time Temp Pulse Resp B/P (MAP) Pulse Ox O2 Delivery O2 Flow Rate FiO2 02/16/23 09:00 88 25 109/64 (79) 100 OxyMask 5.00 02/16/23 08:57 OxyMask 5.00 02/16/23 08:25 37.0 02/16/23 08:15 95 02/16/23 08:15 96 15 105/55 (72) 98 OxyMask 10.00 Height & Weight Height: '" Weight: lbs. oz. kg; 25.78 BMI Method: General Appearance: Other Assessment/Plan Assessment/Plan 1 KENNY BROTHERS MD Feb 16, 2023 10:02
[2023-02-16] MEDS: NS IV 1000 ML 1,000 ML IV SCH ×2 (10:53→16:07)
[2023-02-16 11:17] VITALS: BP 121/68
[2023-02-16] MEDS ORDERED: RT-ALBUTEROL/IPRATROPIUM 3 ML (DUONEB) VIAL INH PRN (11:30)
[2023-02-16] MEDS ORDERED: ALBUMIN 5% 12.5 GM/250 ML 250 ML IV NR (15:00)
[2023-02-16] MEDS: RT-ALBUTEROL/IPRATROPIUM 3 ML (DUONEB) VIAL INH SCH ×2 (15:09→20:33)
--- NOTE | 2023-02-16 15:45 | Diagnostic Imaging Report ---
PROCEDURE: CT head without contrast. TECHNIQUE: Multiple contiguous axial images were obtained through the brain without the use of intravenous contrast. Auto Exposure Controls were utilized during the CT exam to meet ALARA standards for radiation dose reduction. INDICATION: Altered mental status, confusion, metastatic disease. COMPARISON: 01/24/2019. FINDINGS: Tiny 2-3 mm hyperdensity is identified either within the sulci or immediately adjacent gyrus within the medial aspect of the right parietal lobe, appearing new from the prior examination. Additional new 0.8 cm hyperdensity either within the sulci or adjacent gyrus within the high right parietal lobe is also present, series 2, image 56. Calcifications within the bilateral basal ganglia with chronic lacunar infarction versus dilated perivascular space within the inferior right basal ganglia. No midline shift, herniation, or obstructive hydrocephalus. No CT evidence of an acute ischemic infarction. Bilateral ocular lenses are absent. Opacification of the left mastoid air cells. Otherwise, the paranasal sinuses are clear. The calvarium and extracalvarial soft tissues are unremarkable. IMPRESSION: Small regions of hyperdensity involving the right parietal sulci versus underlying gyri as described above. These are new from the prior examination in 2019. These hyperdensities could relate to small regions of intracranial hemorrhage. Alternatively, these could relate to small partially calcified mass lesions or dystrophic calcifications from remote injury. An MRI of the brain with and without contrast would help to further evaluate. If MRI is not possible at this time, short-term CT interval follow-up is recommended to ensure there is no interval change. Additional findings as described above. Findings discussed with Dr. Guidry at 1533 hours on 02/16/2023. Dictated by: Dictated on workstation # [id number]
[2023-02-17] MEDS: NS IV 1000 ML 1,000 ML IV SCH ×2 (00:37→08:19)
[2023-02-17] MEDS: CEFEPIME INJECTION 1,000 MG in NS (IVPB) 50 ML IV SCH ×3 (00:37→14:06)
[2023-02-17 03:34] LABS: BASOPHILS % (AUTO) 0 % (0-10); EOSINOPHILS % (AUTO) 0 % (0-10); HEMATOCRIT 23 % (40-54); HEMOGLOBIN 7.5 g/dL (13.3-17.7); LYMPHOCYTES # (AUTO) 0.5 10^3/uL (1.0-4.0); LYMPHOCYTES % (AUTO) 4 % (12-44); MEAN CORPUSCULAR HEMOGLOBIN 30 pg (25-34); MEAN CORPUSCULAR HGB CONC 32 g/dL (32-36); MEAN CORPUSCULAR VOLUME 93 fL (80-99); MEAN PLATELET VOLUME 10.9 fL (9.0-12.2); MONOCYTES # (AUTO) 1.7 10^3/uL (0.0-1.0); MONOCYTES % (AUTO) 13 % (0-12); NEUTROPHILS # (AUTO) 10.5 10^3/uL (1.8-7.8); NEUTROPHILS % (AUTO) 81 % (42-75); PLATELET COUNT 335 10^3/uL (130-400)
[2023-02-17 03:41] LABS: ALBUMIN 2.2 GM/DL (3.2-4.5)
[2023-02-17 03:42] LABS: CALCIUM 7.1 MG/DL (8.5-10.1)
[2023-02-17 03:43] LABS: TOTAL PROTEIN 3.8 GM/DL (6.4-8.2)
[2023-02-17 03:45] LABS: BILIRUBIN,TOTAL 0.5 MG/DL (0.1-1.0)
[2023-02-17 03:46] LABS: PHOSPHORUS 3.7 MG/DL (2.3-4.7)
[2023-02-17 03:47] LABS: CREATININE SERUM 1.07 MG/DL (0.60-1.30)
[2023-02-17 03:50] LABS: MAGNESIUM 1.6 MG/DL (1.6-2.4)
[2023-02-17] MEDS: MAGNESIUM 1 GM/100 ML IVPB 100 ML IV SCH ×4 (05:17→08:19)
[2023-02-17] MEDS ORDERED: KCL 20 MEQ TAB (K-DUR) PO SCH ×2 (06:00)
[2023-02-17] MEDS ORDERED: POTASSIUM CL 10MEQ/50ML IVPB 50 ML IV SCH ×2 (06:00)
[2023-02-17] MEDS ORDERED: MAGNESIUM 1 GM/100 ML IVPB 100 ML IV SCH ×2 (06:00)
[2023-02-17] MEDS: RT-ALBUTEROL/IPRATROPIUM 3 ML (DUONEB) VIAL INH SCH ×2 (07:14→14:00)
--- NOTE | 2023-02-17 08:04 | Progress Note ---
Subjective Date Seen by a Provider: Feb 17, 2023 Time Seen by a Provider: 11:00 Subjective/Events-last exam Patient doing a little better this morning at the bedside thinks he is more alert but when I assessed him he is lethargic Moving down to fourth floor Labs remained stable IV antibiotics maintained Patient had a progressive decline in the afternoon I did talk to his and recommended comfort care measures and she was agreeable so he would not suffer so I discontinued all aggressive medication management and put in comfort care orders. Review of Systems General: Fatigue, Malaise Objective Exam Last Set of Vital Signs Vital Signs Date Time Temp Pulse Resp B/P (MAP) Pulse Ox O2 Delivery O2 Flow Rate FiO2 02/17/23 07:49 36.9 02/17/23 07:43 99 High Flow N/C 4.00 02/17/23 06:00 70 24 123/65 (84) Capillary Refill : I&O Intake and Output 02/17/23 00:00 Intake Total 3650 ml Output Total 450 ml Balance 3200 ml Intake IV Total 3650 ml Output Urine Total 450 ml # Bowel Movements 2 Daily Weight Change No General: Alert, Other (Lethargic) Lungs: Other ( decreased breath sounds) Heart: Regular Rate Results Lab Laboratory Tests 02/16/23 10:30: Ammonia 23 02/16/23 11:48: Glucometer 104 02/16/23 17:28: Glucometer 99 02/17/23 00:39: Glucometer 112H 02/17/23 03:20: White Blood Count 13.0H, Red Blood Count 2.51L, Hemoglobin 7.5L, Hematocrit 23L, Mean Corpuscular Volume 93, Mean Corpuscular Hemoglobin 30, Mean Corpuscular Hemoglobin Concent 32, Red Cell Distribution Width 17.2H, Platelet Count 335, Mean Platelet Volume 10.9, Immature Granulocyte % (Auto) 2, Neutrophils (%) (Auto) 81H, Lymphocytes (%) (Auto) 4L, Monocytes (%) (Auto) 13H, Eosinophils (%) (Auto) 0, Basophils (%) (Auto) 0, Neutrophils # (Auto) 10.5H, Lymphocytes # (Auto) 0.5L, Monocytes # (Auto) 1.7H, Eosinophils # (Auto) 0.0, Basophils # (Auto) 0.0, Immature Granulocyte # (Auto) 0.3H, Sodium Level 144, Potassium Lev el 4.0, Chloride Level 111H, Carbon Dioxide Level 22, Anion Gap 11, Blood Urea Nitrogen 37H, Creatinine 1.07, Estimat Glomerular Filtration Rate 69, BUN/Creatinine Ratio 35, Glucose Level 102, Calcium Level 7.1L, Corrected Calcium 8.5, Phosphorus Level 3.7, Magnesium Level 1.6, Total Bilirubin 0.5, Aspartate Amino Transf (AST/SGOT) 62H, Alanine Aminotransferase (ALT/SGPT) 22, Alkaline Phosphatase 80, Total Protein 3.8L, Albumin 2.2L Microbiology 02/16/23 MRSA Screen - Final, Complete MRSA not isolated Assessment/Plan Assessment/Plan Assess & Plan/Chief Complaint Assessment: Comfort care protocol initiated due to terminal condition Severe sepsis PNA Immunosuppressed with chemotherapy Lung cancer with mets Subacute DVT left leg on OAC 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
[2023-02-17] MEDS ORDERED: NS IV 1000 ML 1,000 ML IV SCH (08:42)
[2023-02-17] MEDS: DOCUSATE SODIUM 100 MG (COLACE) CAP PO SCH (08:46)
[2023-02-17] MEDS: SENNOSIDES 8.6 MG (SENOKOT) TAB PO SCH (08:46)
--- NOTE | 2023-02-17 08:54 | Tele-ICU Progress Note ---
Subjective Date Seen by a Provider: Feb 17, 2023 Time Seen by a Provider: 08:53 Subjective/Events-last exam (Tele-ICU Physician , Progress Note ) Service provided via interactive audio and video telecommunications E-CARE system to a patient admitted to ICU bed in [facility]. Patient is seen today due to persistent need of ICU care Available chart/ vitals / labs / Images reviewed Video assessment done using teleICU camera, rest of exam as per RN Discussed with RN Events overnight : wake up , had some food , then fall asleep - very letargyc again Afebrile hemodynamically stable Respiratory - 4l I/O =+ Drips: ns 125 Pressors- no Hospital course: 02/15- to rehab from home with myopathy 02/16 - to ICU fron rehab with hypoxia and AMS - suspected sepsis , PNA A/P acute hypoxic resp failure - suspected PNA - monitor , tx PNA = patient is DNI Mental status change - most likely TME -CTA 02/16- hyperdensity R parietal sulci -new from the prior examination in 2018. - ? 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 Discussed with RN to reach out if any questions or concerns A total of 20 minutes of critical care time was devoted to this patient today, required to treat and/or prevent further deterioration of critical care condition ( as above ) . I am remotely monitoring this patient from another state. I am unable to do the bedside exam, and history/physical and pertinent information is taken from other notes in the computer and bedside staff. . Sepsis Event Evaluation Height, Weight, BMI Height: '" Weight: lbs. oz. kg; 27.07 BMI Method: Exam Exam Patient acknowledged, consented, and participated in this virtual visit which was conducted using real time audio/video Vital Signs Date Time Temp Pulse Resp B/P (MAP) Pulse Ox O2 Delivery O2 Flow Rate FiO2 02/17/23 07:49 36.9 02/17/23 07:43 99 High Flow N/C 4.00 02/17/23 07:23 High Flow N/C 4.00 02/17/23 07:14 97 High Flow N/C 5.00 02/17/23 06:00 70 24 123/65 (84) 100 High Flow N/C 5.00 02/17/23 05:00 71 23 133/63 (86) 100 High Flow N/C 5.00 02/17/23 04:00 75 38 146/69 (94) 98 High Flow N/C 5.00 02/17/23 04:00 97 High Flow N/C 5.00 02/17/23 03:00 70 123/62 (82) 100 High Flow N/C 5.00 02/17/23 02:00 74 134/65 (88) 100 High Flow N/C 7.00 02/17/23 01:00 104 38 135/69 (91) 92 High Flow N/C 7.00 02/17/23 01:00 84 02/17/23 00:36 36.8 02/17/23 00:00 75 23 125/61 (82) 98 High Flow N/C 5.00 02/16/23 23:59 95 OxyMask 3.00 02/16/23 23:00 76 18 119/56 (77) 98 High Flow N/C 5.00 02/16/23 22:00 79 118/54 (75) 100 High Flow N/C 5.00 02/16/23 21:00 93 31 140/62 (88) 95 High Flow N/C 5.00 02/16/23 20:36 100 High Flow N/C 4.00 02/16/23 20:00 95 OxyMask 3.00 02/16/23 20:00 81 25 135/68 (90) 94 High Flow N/C 5.00 6/14/23 19:22 36.3 80 16 146/77 (100) 95 High Flow N/C 5.00 02/16/23 19:00 73 02/16/23 18:00 77 18 141/73 (95) 100 High Flow N/C 5.00 02/16/23 17:33 High Flow N/C 5.00 02/16/23 17:00 77 31 141/66 (91) 95 OxyMask 5.00 02/16/23 16:00 36.8 OxyMask 5.00 02/16/23 16:00 71 17 130/70 (90) 100 OxyMask 5.00 02/16/23 15:30 100 OxyMask 5.00 02/16/23 15:28 36.5 02/16/23 15:00 72 24 131/63 (85) 100 OxyMask 5.00 02/16/23 14:00 73 23 121/65 (83) 100 OxyMask 5.00 02/16/23 13:00 73 02/16/23 13:00 73 27 94/51 (65) 100 OxyMask 5.00 02/16/23 12:47 100 OxyMask 5.00 02/16/23 12:00 81 25 119/72 (88) 100 OxyMask 5.00 02/16/23 11:47 37.0 02/16/23 11:17 37.0 88 100 02/16/23 11:00 79 16 110/64 (79) 98 OxyMask 5.00 02/16/23 10:00 88 18 121/68 (85) 100 OxyMask 5.00 02/16/23 09:00 88 25 109/64 (79) 100 OxyMask 5.00 02/16/23 08:57 OxyMask 5.00 I & O 02/17/23 07:00 Intake Total 3650 ml Output Total 675 ml Balance 2975 ml Height & Weight Height: '" Weight: lbs. oz. kg; 27.07 BMI Method: General Appearance: Chronically ill, Mild Distress, Other (Lethargic, pale, martel) Respiratory: No Respiratory Distress, Accessory Muscle Use, Decreased Breath Sounds Cardiovascular: Regular Rate, Rhythm, No Edema, No Gallop, No JVD, No Murmur, Normal Peripheral Pulses Neurologic/Psychiatric: Alert, Depressed Affect, Disoriented Results Lab Laboratory Tests 02/17/23 03:20 Assessment/Plan Assessment/Plan 1 KENNY BROTHERS MD Feb 17, 2023 08:54
--- NOTE | 2023-02-17 08:59 | Diagnostic Imaging Report ---
INDICATION: Dyspnea. COMPARISON: 02/16/2023 FINDINGS: Single frontal radiographic view of the chest was obtained and demonstrates persistent diffuse interstitial opacities with more confluent alveolar appearing airspace disease in the bilateral perihilar region. Aeration does appear slightly improved compared to one day prior. Small bibasilar effusions are suspected. There is no pneumothorax. Cardiac silhouette is within normal limits. Left-sided subclavian Port-A-Cath is noted. IMPRESSION: 1. Interval improved aeration, but with persistent mixed interstitial and alveolar opacities suspicious for pulmonary edema. 2. Probable small bibasilar effusions. Dictated by: Dictated on workstation # [id number]
[2023-02-17] MEDS ORDERED: VANCOMYCIN 1250 MG/NS 250 ML PREMIX IV SCH (09:00)
[2023-02-17] MEDS: ENOXAPARIN 80 MG/0.8 ML (LOVENOX) SYR SC SCH (10:18)
[2023-02-17 12:10] VITALS: BP 129/63
--- NOTE | 2023-02-17 14:12 | Physical Therapy Evaluation ---
PT Evaluation-General Medical Diagnosis Admission Date Feb 16, 2023 at 07:57 Medical Diagnosis: Sepsis Onset Date: Feb 15, 2023 Therapy Diagnosis Therapy Diagnosis: Gait deficit, strength deficit Precautions Precautions/Isolations: Fall Prevention Weight Bear Status Right Lower Extremity: Right Full Weight Bearing Left Lower Extremity: Left Full Weight Bearing Referral Physician: Dr. Pulliam Reason for Referral: Evaluation/Treatment Medical History Reviewed History: Yes Social History Home: Single Level Current Living Status: Spouse Entry Into Home: Stairs With Railing PT Steps Into Home: 2 Prior Prior Level of Function SCALE: Activities may be completed with or without assistive devices. 5-Btkzcituqp-hixusib completes the activity by him/herself with no assistance from a helper. 5-Set-up or Clean-up Assistance-helper sets up or cleans up; patient completes activity. [place] assists only prior to or following the activity. 4-Supervision or Touching Assistance-helper provides verbal cues and/or touching/steadying and/or contact guard assistance as patient completes act ivity. Assistance may be provided throughout the activity or intermittently. 3-Partial/Moderate Assistance-helper does LESS THAN HALF the effort. [place] lifts, holds or supports trunk or limbs, but provides less than half the effort. 2-Substantial/Maximal Assistance-helper does MORE THAN HALF the effort. [place] lifts or holds trunk or limbs and provides more than half the effort. 4-Civlwbhbn-pqpkkn does ALL the effort. Patient does none of the effort to complete the activity. Or, the assistance of 2 or more helpers is required for the patient to complete the activity. If activity was not attempted, code reason: 7-Patient Refused. 9-Not Applicable-not attempted and the patient did not perform the activity before the current illness, exacerbation or injury. 10-Not Attempted due to Environmental Limitations-(lack of equipment, weather restraints, etc.). 88-Not Attempted due to Medical Conditions or Safety Concerns. Bed Mobility: 6 Transfers (B,C,W/C): 6 Gait: 6 Stairs: 6 PT Evaluation-Current Subjective Patient sitting in chair with and daughter in room upon PT arrival, agreeable to treatment. Patient rates pain at 0/10 currently. Objective Patient Orientation: Person, Place, Time, Situation ROM/Strength ROM Lower Extremities WFLs BLEs all planes Strength Lower Extremities 3+/5 BLEs all planes Sensory Vision: Functional Hearing: Functional Sensation Right Lower Extremit: Intact Sensation Left Lower Extremity: Intact Transfers Roll Left to Right (QC): 1 Sit to Lying (QC): 1 Lying to Sitting/Side of Bed(Q: 1 Sit to Stand (QC): 2 Chair/Lms-iv-Vquhn Xfer(QC): 2 Gait Does the Patient Walk?: No and Walking Goal IS indicated Mode of Locomotion: Walk Anticipated Mode of Locomotion: Walk Balance Sitting Static: Good Sitting Dynamic: Fair Standing Static: Poor Standing Dynamic: Poor Assessment/Needs Patient tolerated treatment poorly. Patient was able to answer questions, however and daughter had to correct him on 3 occasions. Patient very pale and short of breath during subjective portion. Patient sats at 81-84% on 5 L O2. Patient nurse notified and attempted different O2 probes, which initially increased O2 to 90%, however patient continued with labored breathing and became more lethargic. Patient performs sit to stand with Max A from PT and nurse standing by. Nurse noticed patient was incontinent of BM and performed total cleaning. Patient had to sit to rest and would not answer questions initially. Patient was transferred to bed with total A x 2 persons. Patient situated appropriately and nurse contacting respiratory therapy. Patient in bed with call light in reach, all needs met, in the room upon PT departure. Rehab Potential: Fair PT Shoulder Boner Goals Shoulder Boner Goals PT Shoulder Boner Goals Time Frame: Mar 04, 2023 Roll Left & Right (QC): 4 Sit to Lying (QC): 4 Lying-Sitting on Side/Bed(QC): 4 Sit to Stand (QC): 4 Chair/Kbt-ce-Pvfal Xfer(QC): 4 Toilet Transfer (QC): 4 Does the Patient Walk: Yes Walk 10 feet (QC): 4 Walk 50ft with 2 Turns (QC): 4 Walk 150 ft (QC): 4 1 Step (curb) (QC): 4 4 Steps (QC): 4 12 Steps (QC): 4 PT Plan Problem List Problem List: Activity Tolerance, Functional Strength, Safety, Balance, Gait, Transfer, Bed Mobility, ROM Treatment/Plan Treatment Plan: Continue Plan of Care Treatment Plan: Bed Mobility, Education, Functional Activity [place], Functional Strength, Group Therapy, Gait, Safety, Therapeutic Exercise, Transfers Treatment Duration: Mar 12, 2023 Frequency: 6 times per week Estimated Hrs Per Day: .25 hour per day Patient and/or Family Agrees t: Yes Safety Risks/Education Patient Education: Gait Training, Transfer Techniques Teaching Recipient: Patient, Family Teaching Methods: Demonstration, Discussion Response to Teaching: Reinforcement Needed Time Time In: 1330 Time Out: 1355 DATE: Feb 17, 2023 Total Billed Treatment Time: 25 Total Billed Treatment Visit, GODWIN DAVIS JOHN A PT Feb 17, 2023 14:12
[2023-02-17 14:37] VITALS: BP 129/79
[2023-02-17 15:39] VITALS: BP 137/72
[2023-02-17] MEDS ORDERED: LORazepam INJ 2 MG/ML (ATIVAN) VIAL IVP PRN (16:45)
[2023-02-17] MEDS ORDERED: PROMETHAZINE INJ 25 MG/ML (PHENERGAN) AMP IVP PRN (16:45)
[2023-02-17] MEDS ORDERED: ONDANSETRON 4 MG/2 ML (SDV) Z0FRAN IVP PRN (16:45)
[2023-02-17] MEDS ORDERED: GLYCOPYRROLATE 0.2 MG/ML (ROBINUL) 2 ML VIAL IV PRN (16:45)
[2023-02-17] MEDS ORDERED: ATROPINE 1% OPHTHALMIC SOLN 2 ML SL PRN (16:45)
[2023-02-17] MEDS ORDERED: LORazepam 1 MG (ATIVAN) TAB SL PRN (16:45)
[2023-02-17] MEDS ORDERED: BISACODYL 10 MG SUPP (DULCOLAX) PR PRN (16:45)
[2023-02-17] MEDS ORDERED: RT-ALBUTEROL/IPRATROPIUM 3 ML (DUONEB) VIAL INH PRN (16:45)
[2023-02-17] MEDS ORDERED: SALIVA SUBSTITUTE 60 ML SPRAY(MOUTHKOTE) MM PRN (16:45)
[2023-02-17] MEDS ORDERED: ACETAMINOPHEN 650 MG SUPP (TYLENOL) PR PRN (16:45)
[2023-02-17] MEDS ORDERED: ARTIFICAL TEARS 0.4 ML UNIT DOSE (REFRESH PLUS) OU PRN (16:45)
[2023-02-17] MEDS: morphine INJ 4 MG/ML 1 ML (VIAL/SYRINGE) IV PRN ×2 (16:47→19:23)
[2023-02-17] MEDS ORDERED: SCOPOLAMINE 1.5 MG (TRANSDERM-SCOP) PATCH TOP SCH (17:00)
[2023-02-17] MEDS ORDERED: RT-ALBUTEROL/IPRATROPIUM 3 ML (DUONEB) VIAL INH SCH (18:00)
--- NOTE | 2023-02-17 22:04 | Discharge Summary ---
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 He was placed on appropriate antibiotics and IV fluids. He did stabilize and improve moved down to fourth floor which shortly declined in status patient was placed on comfort care protocol and a . Labs (last 24 hrs) Laboratory Tests 02/16/23 10:30: Ammonia 23 02/16/23 11:48: Glucometer 104 02/16/23 17:28: Glucometer 99 02/17/23 00:39: Glucometer 112H 02/17/23 03:20: White Blood Count 13.0H, Red Blood Count 2.51L, Hemoglobin 7.5L, Hematocrit 23L, Mean Corpuscular Volume 93, Mean Corpuscular Hemoglobin 30, Mean Corpuscular Hemoglobin Concent 32, Red Cell Distribution Width 17.2H, Platelet Count 335, Mean Platelet Volume 10.9, Immature Granulocyte % (Auto) 2, Neutrophils (%) (Auto) 81H, Lymphocytes (%) (Auto) 4L, Monocytes (%) (Auto) 13H, Eosinophils (%) (Auto) 0, Basophils (%) (Auto) 0, Neutrophils # (Auto) 10.5H, Lymphocytes # (Auto) 0.5L, Monocytes # (Auto) 1.7H, Eosinophils # (Auto) 0.0, Basophils # (Auto) 0.0, Immature Granulocyte # (Auto) 0.3H, Sodium Level 144, Potassium Level 4.0, Chloride Level 111H, Carbon Dioxide Level 22, Anion Gap 11, Blood Urea Nitrogen 37H, Creatinine 1.07, Estimat Glomerular Filtration Rate 69, BUN/Creatinine Ratio 35, Glucose Level 102, Calcium Level 7.1L, Corrected Calcium 8.5, Phosphorus Level 3.7, Magnesium Level 1.6, Total Bilirubin 0.5, Aspartate Amino Transf (AST/SGOT) 62H, Alanine Aminotransferase (ALT/SGPT) 22, Alkaline Phosphatase 80, Total Protein 3.8L, Albumin 2.2L 02/17/23 12:24: Glucometer 129H Microbiology 02/16/23 Blood Culture - Preliminary, Resulted No growth 02/16/23 MRSA Screen - Final, Complete MRSA not isolated Pending Labs Microbiology Date/Time Source Procedure Growth Status 02/16/23 08:28 Peripheral Rt Hand Blood Culture - Preliminary No growth Resulted 02/16/23 08:25 Nasal MRSA Screen - Final MRSA not isolated Complete 02/16/23 08:20 [place], Left Blood Culture - Preliminary No growth Resulted Laboratory Tests 02/16/23 10:30: Ammonia 23 02/16/23 11:48: Glucometer 104 02/16/23 17:28: Glucometer 99 02/17/23 00:39: Glucometer 112 02/17/23 03:20: White Blood Count 13.0, Red Blood Count 2.51, Hemoglobin 7.5, Hematocrit 23, Mean Corpuscular Volume 93, Mean Corpuscular Hemoglobin 30, Mean Corpuscular Hemoglobin Concent 32, Red Cell Distribution Width 17.2, Platelet Count 335, Mean Platelet Volume 10.9, Immature Granulocyte % (Auto) 2, Neutrophils (%) (Auto) 81, Lymphocytes (%) (Auto) 4, Monocytes (%) (Auto) 13, Eosinophils (%) (Auto) 0, Basophils (%) (Auto) 0, Neutrophils # (Auto) 10.5, Lymphocytes # (Auto) 0.5, Monocytes # (Auto) 1.7, Eosinophils # (Auto) 0.0, Basophils # (Auto) 0.0, Immature Granulocyte # (Auto) 0.3, Sodium Level 144, Potassium Level 4.0, Chloride Level 111, Carbon Dioxide Level 22, Anion Gap 11, Blood Urea Nitrogen 37, Creatinine 1.07, Estimat Glomerular Filtration Rate 69, BUN/Creatinine Ratio 35, Glucose Level 102, Calcium Level 7.1, Corrected Calcium 8.5, Phosphorus Level 3.7, Magnesium Level 1.6, Total Bilirubin 0.5, Aspartate Amino Transf (AST/SGOT) 62, Alanine Aminotransferase (ALT/SGPT) 22, Alkaline Phosphatase 80, Total Protein 3.8, Albumin 2.2 02/17/23 12:24: Glucometer 129 Discharge Home Medications: Active Scripts Active Reported Cetirizine HCl 10 Mg Tablet 10 Mg PO DAILY PRN Carbidopa-Levodopa 25-100 Tab (Carbidopa/Levodopa) 25 Mg-100 Mg Tablet 3 Ea PO TID Acyclovir 400 Mg Tablet 400 Mg PO TID Hydrocodone-Acetamin 5-325 mg (Hydrocodone/Acetaminophen) 5 Mg-325 Mg Tablet 1 Ea PO Q4H PRN Eliquis (Apixaban) 2.5 Mg Tablet 2.5 Mg PO BID Folic Acid 1 Mg Tablet 1 Mg PO DAILY Atorvastatin Calcium 20 Mg Tablet 20 Mg PO DAILY Instructions to patient/family Please see electronic discharge instructions given to patient. Clinical Quality Measures DVT/VTE Risk/Contraindication: Contraindications-Pharm: Other *list below* Contraindications-Mechi: Other *list below* Other: dvt subacute possible hemorrhagic areas on ct scan RAJWINDER ROSALES DO Feb 17, 2023 22:04
[2023-02-20] MEDS ORDERED: SCOPOLAMINE PATCH REMOVAL TP SCH (16:59)
== END 2023-02-17 23:35 | disposition expired | DRG 871 ==
LOC: ICU 07:57 → 4TH 02-17 11:16
PROVIDERS: ADMIT Internal Medicine; ATTEND Internal Medicine
PROC: 5A0935A Assistance with Respiratory Ventilation, Less than 24 Consecutive Hours, High Flow/Velocity Cannula (ICD-10-PCS; principal; 2023-02-16)
DX: A41.9 Sepsis, unspecified organism (principal); J18.9 Pneumonia, unspecified organism; J96.01 Acute respiratory failure with hypoxia; D84.89 Other immunodeficiencies; C34.90 Malignant neoplasm of unspecified part of unspecified bronchus or lung; I82.4Z2 Acute embolism and thrombosis of unspecified deep veins of left distal lower extremity; C78.7 Secondary malignant neoplasm of liver and intrahepatic bile duct; R65.20 Severe sepsis without septic shock; Z79.01 Long term (current) use of anticoagulants; D63.0 Anemia in neoplastic disease; Z66 Do not resuscitate; Z51.5 Encounter for palliative care; E78.00 Pure hypercholesterolemia, unspecified; G20 Parkinson's disease; G89.29 Other chronic pain; M54.9 Dorsalgia, unspecified; Z92.21 Personal history of antineoplastic chemotherapy; Z92.3 Personal history of irradiation; C61 Malignant neoplasm of prostate; Z87.891 Personal history of nicotine dependence; G72.9 Myopathy, unspecified
CPT/HCPCS: 36415; 70450; 71045; 80053; 82140; 82947; 83735; 84100; 85025; 87040; 87081; 94640